=== PATIENT | female | born 1945 | race Caucasian/White ===

== ENCOUNTER 2020-02-13 18:22 | Inpatient (IN) ==
[2020-02-13 18:39] VITALS: BMI 20.7
--- NOTE | 2020-02-13 21:26 | DR.EXTPAIN ---
HPI - Time seen Time seen: 21:19 - PCP Primary Care Physician: FLORESITA - Complaint/Symptoms Chief Complaint Doctor Comments: Patient states she has rheumatoid arthritis and having severe pain in her hands, knees and joints. Family member states she has had a sore throat, cold, cough, with temp 101 today and they brought her to the emergency. States she has been out and they do not know if she has been around anyone with the virus. she denies chest pain, wheezing or dysuria. States she is a patient of Dr. Megn. She denies tobacco, alcohol or drug usage. States the pain is 10 of 10. states she has been taking her medicines without improvement. Chief Complaint:: PT IN ED VIA WHEELCHAIR WITH C/O SEVERE ARTHRITIS PAIN. PT STARTED HURTING X 1 WEEK AGO. STATES SHE HAS UPSET STOMACH, COUGH AND SORE THROAT. NOW ONLY FEVER AND HURTING ALL OVER. - Nurses notes reviewed Nurses Notes Review: Yes - Source History Provided: Patient - Mode of arrival Mode of Arrival: Ambulatory - Timing Onset of Chief Complaint: 02/05/20 - Context History of: Arthritis - Associated signs and symptoms Associated Signs and Symptoms: Pain, Swelling PMH - PMH Past Medical History: Yes Past Medical History: Anemia, Arthritis, Coronary Artery Disease, Dyslipidemia, Hypertension, Liver Disease, [place], Renal Disease Past Surgical History: Yes Surgical History: Carotid Endarterectomy, Cholecystectomy Past Surgical History Comment: BACK - Family History History of Family Medical Conditions: Yes Family Medical History: Diabetes Mellitus, [place], Coronary Artery Disease - Social History Does patient currently use any type of tobacco product: No Have you used tobacco products in the last 12 months: No Type of Tobacco Use: None Does any household member use tobacco: No Alcohol Use: None Do you use any recreational Drugs:: No Lives With: Family Lives Where: Home - Travel Risk Coronavirus risk:travel/contact w/high risk person: No Has patient experienced Coronavirus symptoms: Yes Coronavirus symptoms experienced: Fever, Coughing - infectious screening In the last 2 months have you had wt loss of >10#?: NO Have you had fever, night sweats or hemotysis?: No Have you traveled outside the country in the last 6 months?: No Isolation: Droplet ROS - Review of Systems Constitutional: No Symptoms Reported, Fever, Malaise Eyes: No Symptoms Reported ENTM: No Symptoms Reported Respiratoy: No Symptoms Reported, Non-Productive Cough Cardiovascular: No Symptoms Reported. negative: See HPI, Chest Pain, Edema, Palpitations, Syncope, Cyanosis, Skin Mottling, Other Gastrointestinal/Abdominal: No Symptoms Reported. negative: See HPI, Abdominal Pain, Constipation, Diarrhea, Nausea, Vomiting, Food Intolerance, Other Genitourinary: No Symptoms Reported Neurological: No Symptoms Reported Musculoskeletal: No Symptoms Reported, Arm, Hand, Hip, Knee Integumentary: No Symptoms Reported. negative: See HPI, Change in Color, Change in Hair/Nails, Dryness, Lesions, Lumps, Rash, Itching, Wound, Bruises, Juandice, Other Hematologic/Lymphatic: No Symptoms Reported. negative: See HPI, Anemia, Blood Clots, Easy Bleeding, Easy Bruising, Swollen Glands, Lymphadenopathy, Other Endocrine: No Symptoms Reported Psychiatric: No Symptoms Reported. negative: See HPI, Anxiety, Depression, Hallucinations, Excessive crying, Suicidal, Other PE - General Limitations: No Limitations General Appearance: Alert, In Distress (moderate) - Head Head Exam: Normal Inspection, Atraumatic, Normocephalic - Eyes Eye exam: Normal Appearance, PERRL, EOMI. negative: Scleral Icterus, Conjunctival Injection, Nystagmus, Miosis, Mydrasis, Periorbital Swelling, Periorbital Tenderness, Other - ENT ENT Exam: Normal Exam, Normal Oropharynx, Normal External Ear Exam, Mucous Membranes Moist, TM's Normal Bilaterally - Neck Neck Exam: Normal Inspection, Full ROM, Trachea Midline. negative: Tenderness, Meningismus, Lymphadenopathy, Thyromegaly, Other - Chest Chest Inspection: Normal Inspection, Symmetric Chest Wall Rise. negative: Tenderness, Rash, Abscess, Other - Respiratory Respiratory Exam: Normal Lung Sounds Bilat Respiratory Exam: Bilateral Clear to Auscultation - Cardiovascular Cardiovascular Exam: Regular Rate, Normal Rhythm, Normal Heart Sounds - Abdominal Exam Abdominal Exam: Normal Inspection, Normal Bowel Sounds, Soft. negative: Distention, Tenderness, Guarding, Rebound, Rigidity, Dimnished Bowel Sounds, Hyperactive Bowel Sounds, Hypoactive Bowel Sounds, Organomegaly, Trauma, Incision, Ascites, Mass, Bruit, Pulsatile Mass, Hernia, Other Abdominal Tenderness: negative: RUQ, RLQ, LUQ, LLQ, Epigastrium, Suprapubic, Diffuse, Mild, Moderate, Severe, Other - Extremities Extremities Exam: Normal Inspection, Full ROM, Tenderness (hands with severe deformity fingers, contractures, knee pain), Normal Capillary Refill - Upper Extremities Shoulder Exam: Normal Inspection, Full ROM Arm Exam: Normal Inspection, Full ROM, Tenderness Elbow Exam: Normal Inspection, Full ROM, Tenderness Forearm Exam: Normal Inspection, Full ROM. negative: Tenderness, Swelling, Abrasion, Laceration, Ecchymosis, Deformity, Crepitus, Erythema, Dislocation, Other Hand Exam: Normal Inspection, Tenderness, Deformity Neuromotor Exam: Normal Exam Neurosensory Exam: Normal Exam Hand Tendon Exam: Flexor Digitorium Profundus (Location) (normal) Upper Ext. Vascular Exam: Capillary Refill - Lower Extremities Hip/Pelvis Exam: Normal Inspection, Full ROM Upper Leg Exam: Normal Inspection, Full ROM. negative: Tenderness, Swelling, Abrasion, Laceration, Ecchymosis, Deformity, Crepitus, Dislocation, Erythema, Other Knee Exam: Normal Inspection, Full ROM, Tenderness, Deformity, Crepitus Lower Leg Exam: Normal Inspection, Full ROM Ankle Exam: Normal Inspection, Full ROM. negative: Tenderness, Swelling, Abrasion, Laceration, Ecchymosis, Deformity, Crepitus, Dislocation, Erythema, Tenderness over talofibular lig, Anterior Draw Sign, Other Foot/Toe Exam: Normal Inspection, Full ROM Neurovascular/Tendon Exam: Normal Capillary Refill Gait Exam: Not Tested/Not Observed - Back Back Exam: Normal Inspection, Full ROM. negative: Tenderness, (R) CVA Tenderness, (L) CVA Tenderness, Muscle Spasm, Paraspinal Tenderness, Vertebral Tenderness, Rashes, (R) Sciatic Notch Tenderness, (L) Sciatic Notch Tendern, (R) Straight Leg Raise, (L) Straight Leg Raise, Other - Neurological Neurological Exam: Alert, Oriented X3, CN II-XII Intact, Reflexes Normal. negative: Normal Gait (gait not tested) - Psychiatric Psychiatric Exam: Normal Affect, Normal Mood - Skin Skin Exam: Warm, Dry, Intact, Normal Color Type of Lesion: negative: Rash, Abscess, Laceration, Foreign Body, Bite/Sting, Abrasion, Other Distribution: negative: Generalized, Involves Palms/Soles, Head, Face, Neck, Thorax, Chest, Back, Abdomen, Genitals, LUE, LLE, RUE, RLE, Other Description: negative: Size, Tenderness, Erythematous, Swelling, Macular, Papular, Vesicular, Blisters, Cofluent, Bullous, Petechial, Purpuric, Urticarial, Crusting, Discharge, Fluctuant, Indurated, Other - Vital Signs Vitals: Temperature 101.7 F Pulse Rate 73 Respiratory Rate 20 Blood Pressure [Right Arm] 136/64 Blood Pressure 106/55 O2 Sat by Pulse Oximetry 90 Course - Reevaluation 1st: Improved - Consultation Called: :31 Call Returned: 01:31 (Dr. Singh will admit) - Education/Counseling Education/Counseling: Patient, Family Educated On: Treatment, Diagnosis, Needs for Follow Up ROR - Labs Reviewed Laboratory Results Reviewed?: Yes (All labs and x-ray results reviewed and discussed with patient) Result Diagrams: 02/13/20 21:48 02/13/20 21:48 - XRAY XRAY Interpreted by: Radiologist (CXR: Low lung volume with minimal bibasilar atelectasis vs infiltrates) - Labs Reviewed Laboratory: WBC 12.2 X10^3/uL (3.6-10.0) H 02/13/20 21:48 RBC 3.31 X10^6/uL (3.5-5.4) L 02/13/20 21:48 Hgb 7.6 g/dL (12.0-16.0) L 02/13/20 21:48 Hct 25.3 % (36.0-47.0) L 02/13/20 21:48 MCV 76.3 fL (80.0-100.0) L 02/13/20 21:48 MCH 23.1 pg (27.0-34.0) L 02/13/20 21:48 MCHC 30.2 g/dL (33.0-35.0) L 02/13/20 21:48 RDW 18.5 % (11.6-16.5) H 02/13/20 21:48 Plt Count 284 X10^3/uL (150.0-450.0) 02/13/20 21:48 Plt Count Comment Adequate (ADEQUATE) 02/13/20 21:48 MPV 8.0 fL (7.4-11.0) 02/13/20 21:48 Neut % (Auto) 89.5 % (42.0-75.0) H 02/13/20 21:48 Lymph % (Auto) 3.3 % (21.0-51.0) L 02/13/20 21:48 [place] % (Auto) 6.9 % (0.0-13.0) 02/13/20 21:48 Eos % (Auto) 0.2 % (0.9-2.9) L 02/13/20 21:48 Baso % (Auto) 0.1 % (0.2-1.0) L 02/13/20 21:48 Neut # (Auto) 10.9 x10^3/uL (2.2-4.8) H 02/13/20 21:48 Lymph # (Auto) 0.4 X10^3/uL (1.3-2.9) L 02/13/20 21:48 [place] # (Auto) 0.8 x10^3/uL (0.3-0.8) 02/13/20 21:48 Eos # (Auto) 0.0 x10^3/uL (0.0-0.2) 02/13/20 21:48 Baso # (Auto) 0.0 X10^3/uL (0.0-0.1) 02/13/20 21:48 Absolute Nucleated RBC 0.0 /100WBC 02/13/20 21:48 Plt Morphology Comment Normal (NORMAL) 02/13/20 21:48 RBC Morphology Abnormal (NORMAL) A 02/13/20 21:48 Hypochromasia 1+ A 02/13/20 21:48 Sodium 137 mmol/L (136-145) 02/13/20 21:48 Corrected Sodium TNP 02/13/20 21:48 Potassium 3.7 mmol/L (3.5-5.1) 02/13/20 21:48 Chloride 103 mmol/L (98-107) 02/13/20 21:48 Carbon Dioxide 21.3 mmol/L (21-32) 02/13/20 21:48 BUN 31 mg/dL (7-18) H 02/13/20 21:48 Creatinine 2.15 mg/dL (0.55-1.02) H 02/13/20 21:48 Est GFR (MDRD) Af Amer 29 (>60) L 02/13/20 21:48 Est GFR (MDRD) Non-Af 24 (>60) L 02/13/20 21:48 Glucose 88 mg/dL (65-99) 02/13/20 21:48 Calcium 9.4 mg/dL (8.5-10.1) 02/13/20 21:48 Corrected Calcium 10.3 mg/dL (8.5-10.1) H 02/13/20 21:48 Total Bilirubin 0.30 mg/dL (0.2-1.0) 02/13/20 21:48 AST 30 Units/L (15-37) 02/13/20 21:48 ALT 18 Units/L (12-78) 02/13/20 21:48 Alkaline Phosphatase 130 Units/L (46-116) H 02/13/20 21:48 Total Protein 6.7 g/dL (6.4-8.2) 02/13/20 21:48 Albumin 2.9 g/dL (3.4-5.0) L 02/13/20 21:48 Globulin 3.8 g/dL (2.5-4.5) 02/13/20 21:48 Albumin/Globulin Ratio 0.8 Ratio (1.1-2.1) L 02/13/20 21:48 SARS-CoV-2 (PCR) Negative (NEGATIVE) 02/14/20 00:29 Opioid - Opioid Risk Tool Age (Deng box if 16-45): No History of Preadolescent Sexual Abuse: No Total: 0 Total Score Risk Category: Low Risk - Diagnosis Discharge Problem: Pulmonary infiltrate in left lung on CXR, Severe anemia, Rheumatoid arthritis flare, Microcytic anemia Chronic kidney disease (CKD) Qualifiers: Chronic kidney disease stage: stage 3 (moderate) Qualified Code(s): N18.3 - Chronic kidney disease, stage 3 (moderate) - Discharge Plan Disposition: ADMITTED INPATIENT Condition: Stable - Follow ups/Referrals Follow ups/Referrals: SANTIAGO CANAS [Primary Care Provider] - 3 days - Instructions
[2020-02-13] MEDS ORDERED: SOLU-Medrol 125 MG VIAL IVP ONE (21:29)
[2020-02-13] MEDS ORDERED: ZOFRAN INJ 4 MG VIAL IVP ONE (21:29)
[2020-02-13] MEDS ORDERED: DEMEROL INJ IVP ONE (21:29)
[2020-02-13] MEDS ORDERED: NS 1000 ML 1,000 ML ONE (21:39)
[2020-02-13] MEDS ORDERED: DEMEROL INJ ONE (21:41)
[2020-02-13] MEDS ORDERED: SOLU-Medrol 125 MG VIAL ONE (21:41)
[2020-02-13] MEDS ORDERED: ZOFRAN INJ 4 MG VIAL ONE (21:41)
[2020-02-13] MEDS: NS 1000 ML 1,000 ML IV SCH (21:57)
[2020-02-13 22:02] LABS: BASOPHILS % (AUTO) 0.1 % (0.2-1.0); EOSINOPHILS % (AUTO) 0.2 % (0.9-2.9); HEMATOCRIT 25.3 % (36.0-47.0); HEMOGLOBIN 7.6 g/dL (12.0-16.0); LYMPHOCYTES # (AUTO) 0.4 X10^3/uL (1.3-2.9); LYMPHOCYTES % (AUTO) 3.3 % (21.0-51.0); MEAN CORPUSCULAR HEMOGLOBIN 23.1 pg (27.0-34.0); MEAN CORPUSCULAR HGB CONC 30.2 g/dL (33.0-35.0); MEAN CORPUSCULAR VOLUME 76.3 fL (80.0-100.0); MONOCYTES # (AUTO) 0.8 x10^3/uL (0.3-0.8); MONOCYTES % (AUTO) 6.9 % (0.0-13.0); NEUTROPHILS # (AUTO) 10.9 x10^3/uL (2.2-4.8); NEUTROPHILS % (AUTO) 89.5 % (42.0-75.0); PLATELET COUNT 284 X10^3/uL (150.0-450.0); RED BLOOD COUNT 3.31 X10^6/uL (3.5-5.4); RED CELL DISTRIBUTION WIDTH 18.5 % (11.6-16.5); WHITE BLOOD COUNT 12.2 X10^3/uL (3.6-10.0)
[2020-02-13 22:18] LABS: ALANINE AMINOTRANSFERASE 18 Units/L (12-78); ALBUMIN 2.9 g/dL (3.4-5.0); ALKALINE PHOSPHATASE 130 Units/L (46-116); ASPARTATE AMINO TRANSFERASE 30 Units/L (15-37); BLOOD UREA NITROGEN 31 mg/dL (7-18); CALCIUM 9.4 mg/dL (8.5-10.1); CARBON DIOXIDE 21.3 mmol/L (21-32); CHLORIDE 103 mmol/L (98-107); COR CA(FOR HYPOALB) 10.3 mg/dL (8.5-10.1); CREATININE 2.15 mg/dL (0.55-1.02); SODIUM 137 mmol/L (136-145); TOTAL PROTEIN 6.7 g/dL (6.4-8.2); eGFR NON BLACK RACES 24 (>60)
--- NOTE | 2020-02-13 22:25 | RAD ---
HISTORYPT IN ED VIA WHEELCHAIR WITH C/O SEVERE ARTHRITIS PAIN. PT STARTED HURTING X 1 WEEK AGO. STATES SHE HAS UPSET STOMACH, COUGH AND SORE THROAT. NOW ONLY FEVER AND HURTING ALL OVER.STUDYCHEST, 1 [id number]/2020FINDINGSThe trachea is midline. The cardiac silhouette is upper limits or normal.. Low lung volume with mild bibasilar atelectasis/infiltrates.. The bony thorax is grossly unremarkable. Surgical clips of the left lower neck..IMPRESSIONLow lung volume with minimal bibasilar atelectasis versus infiltrates.Electronically signed by: Glenis Forbes (Feb 13, 2020 22:24:29)
[2020-02-13 22:51] LABS: HYPOCHROMASIA 1+; PLATELET MORPHOLOGY COMMENT NORMAL (NORMAL)
[2020-02-13] MEDS ORDERED: TORADOL 30 MG VIAL IVP ONE (23:50)
[2020-02-13] MEDS ORDERED: TORADOL 30 MG VIAL ONE (23:52)
[2020-02-14] MEDS ORDERED: ROCEPHIN VIAL 1 GRAM 1 G in NS 100 ML IV + SPIKE MINIBAG* 100 ML IV ONE ×2
[2020-02-14] MEDS ORDERED: ROCEPHIN VIAL 1 GRAM ONE ×2 (00:26→19:24)
[2020-02-14] MEDS ORDERED: NS 100 ML IV + SPIKE MINIBAG* 100 ML IV ONE ×2 (00:26→19:24)
[2020-02-14] MEDS ORDERED: TUSSIONEX PENNKINETIC SUSP PO PRN (02:11)
[2020-02-14] MEDS ORDERED: NS 1/2 1000 ML IV 1,000 ML IV ONE (02:53)
[2020-02-14] MEDS ORDERED: NS 1/2 1000 ML IV 1,000 ML IV SCH (03:00)
[2020-02-14] MEDS ORDERED: MORPHINE SULFATE INJ 2 MG INJ IVP ONE (03:10)
[2020-02-14] MEDS ORDERED: MORPHINE SULFATE INJ 2 MG INJ ONE (03:15)
[2020-02-14 04:24] LABS: BASOPHILS % (AUTO) 0.1 % (0.2-1.0); HEMATOCRIT 20.4 % (36.0-47.0); LYMPHOCYTES # (AUTO) 0.4 X10^3/uL (1.3-2.9); LYMPHOCYTES % (AUTO) 2.6 % (21.0-51.0); MEAN CORPUSCULAR HEMOGLOBIN 22.9 pg (27.0-34.0); MEAN CORPUSCULAR HGB CONC 30.3 g/dL (33.0-35.0); MEAN CORPUSCULAR VOLUME 75.7 fL (80.0-100.0); MEAN PLATELET VOLUME 8.1 fL (7.4-11.0); MONOCYTES # (AUTO) 0.8 x10^3/uL (0.3-0.8); MONOCYTES % (AUTO) 5.5 % (0.0-13.0); NEUTROPHILS # (AUTO) 12.6 x10^3/uL (2.2-4.8); NEUTROPHILS % (AUTO) 91.8 % (42.0-75.0); PLATELET COUNT 202 X10^3/uL (150.0-450.0); RED BLOOD COUNT 2.69 X10^6/uL (3.5-5.4); RED CELL DISTRIBUTION WIDTH 18.3 % (11.6-16.5); WHITE BLOOD COUNT 13.8 X10^3/uL (3.6-10.0)
[2020-02-14 04:33] LABS: ALANINE AMINOTRANSFERASE 16 Units/L (12-78); ALBUMIN 2.4 g/dL (3.4-5.0); ALKALINE PHOSPHATASE 109 Units/L (46-116); ASPARTATE AMINO TRANSFERASE 26 Units/L (15-37); BLOOD UREA NITROGEN 33 mg/dL (7-18); CALCIUM 8.5 mg/dL (8.5-10.1); CARBON DIOXIDE 19.5 mmol/L (21-32); CHLORIDE 104 mmol/L (98-107); COR CA(FOR HYPOALB) 9.8 mg/dL (8.5-10.1); CREATININE 1.94 mg/dL (0.55-1.02); HEMOGLOBIN 6.2 g/dL (12.0-16.0); SODIUM 136 mmol/L (136-145); TOTAL PROTEIN 5.8 g/dL (6.4-8.2); eGFR NON BLACK RACES 27 (>60)
[2020-02-14 05:09] LABS: HYPOCHROMASIA 1+; PLATELET MORPHOLOGY COMMENT NORMAL (NORMAL)
[2020-02-14] MEDS ORDERED: TYLENOL 325 MG TAB PO ONE ×2 (06:50→06:51)
[2020-02-14] MEDS ORDERED: ROBITUSSIN DM ONE (07:17)
[2020-02-14] MEDS ORDERED: NS 1000 ML 1,000 ML ONE (07:17)
[2020-02-14] MEDS: ROBITUSSIN DM PO SCH ×5 (08:34→21:17)
[2020-02-14] MEDS ORDERED: ZITHROMAX TAB 250 MG PO ONE (09:22)
[2020-02-14] MEDS: SOLU-Medrol 125 MG VIAL IVP SCH ×2 (10:40→21:17)
[2020-02-14] MEDS: VITAMIN C PO SCH (10:40)
--- NOTE | 2020-02-14 12:50 | DR.H&P ---
H&P History & Physical for Day of: H&P Date: 02/14/20 Chief Complaint Chief Complaint: cough, fever and URI symptoms Allergies Allergies Allergy/AdvReac Type Severity Reaction Status Date / Time Tetanus Vaccines and Toxoid Allergy Verified 12/04/19 20:57 History of Present Illness History of Present Illness: Ms. Carroll is a 74y/o female with a PMH of RA, CAD s/p PCI, HTN and anemia presented with worsening cough, fever and chills. She has been having URI sx for the past week. Denies sick contact or known exposure. She also reports worsening joint pain for the past couple days. ED work-up - CXR: mild bibasilar atelectasis - Rapid COVID test was negative - Labs: Hgb 7.6 K: 4.3 BUN/Cr: 33/2.15 She was started on Rocephin and Azithromycin. Patient's hgb this AM was 6.2. She reports requiring 2 units of blood back in October. Denies active bleeding. Patient has been afebrile, reports feeling better. She is on room air. Plan: Continue IV antibiotics, will transfuse 2 units PRBCs, add solumedrol and Vit C. Get sputum culture. Due to patient's clinical symptoms, will check for COVID again with PCR. Resume home medications. Check anemia panel and FOBT. Past Medical History Past Medical History: Anemia, Arthritis, Coronary Artery Disease, Dyslipidemia, Hypertension, Liver Disease, [place] and Renal Disease Past Surgical History Surgical History: Carotid Endarterectomy, Cholecystectomy, Ortho Surgery and Other Family History Family Medical History: Diabetes Mellitus, [place] and Coronary Artery Disease Social History Does patient currently use any type of tobacco product: No Have you used tobacco products in the last 12 months: No Type of Tobacco Use: None Does any household member use tobacco: No Alcohol Use: None Drug Use: None Medications Home Medications: Tetanus Vaccines and Toxoid Allergy (Verified 12/04/19 20:57) CONTINUE taking the following medications amlodipine 5 mg PO DAILY 02/13/20 [History] amoxicillin-pot clavulanate 1 tab PO BID 02/13/20 [History] aspirin [Aspir-81] 81 mg PO DAILY 02/13/20 [History] atorvastatin 20 mg PO DAILY 02/13/20 [History] calcium carbonate-vitamin D3 [Calcium 600 + D(3)] 1 cap PO DAILY 02/13/20 [History] cholecalciferol (vitamin D3) [Vitamin D3] 125 mcg PO DAILY 02/13/20 [History] clopidogrel 75 mg PO DAILY 02/13/20 [History] furosemide 20 mg PO DAILY 02/13/20 [History] gabapentin 100 mg PO QID 02/13/20 [History] hydrocodone-acetaminophen 1 tab PO BID PRN 02/13/20 [History] levothyroxine 88 mcg PO DAILY 02/13/20 [History] lisinopril 40 mg PO BID 02/13/20 [History] metoprolol tartrate 25 mg PO BID 02/13/20 [History] ropinirole 0.5 mg PO HS 02/13/20 [History] spironolactone 50 mg PO DAILY 02/13/20 [History] suvorexant [Belsomra] 15 mg PO DAILY 02/13/20 [History] vitamin E 1,000 unit PO DAILY 02/13/20 [History] Labs Result Diagrams: 02/14/20 04:10 02/14/20 04:10 Labs: 02/14/20 02:55 Sputum - Expectorated Sputum - Final Laboratory WBC 13.8 X10^3/uL (3.6-10.0) H 02/14/20 04:10 RBC 2.69 X10^6/uL (3.5-5.4) L 02/14/20 04:10 Hgb 6.2 g/dL (12.0-16.0) L* 02/14/20 04:10 Hct 20.4 % (36.0-47.0) L 02/14/20 04:10 MCV 75.7 fL (80.0-100.0) L 02/14/20 04:10 MCH 22.9 pg (27.0-34.0) L 02/14/20 04:10 MCHC 30.3 g/dL (33.0-35.0) L 02/14/20 04:10 RDW 18.3 % (11.6-16.5) H 02/14/20 04:10 Plt Count 202 X10^3/uL (150.0-450.0) 02/14/20 04:10 Plt Count Comment Adequate (ADEQUATE) 02/14/20 04:10 MPV 8.1 fL (7.4-11.0) 02/14/20 04:10 Neut % (Auto) 91.8 % (42.0-75.0) H 02/14/20 04:10 Lymph % (Auto) 2.6 % (21.0-51.0) L 02/14/20 04:10 [place] % (Auto) 5.5 % (0.0-13.0) 02/14/20 04:10 Eos % (Auto) 0.0 % (0.9-2.9) L 02/14/20 04:10 Baso % (Auto) 0.1 % (0.2-1.0) L 02/14/20 04:10 Neut # (Auto) 12.6 x10^3/uL (2.2-4.8) H 02/14/20 04:10 Lymph # (Auto) 0.4 X10^3/uL (1.3-2.9) L 02/14/20 04:10 [place] # (Auto) 0.8 x10^3/uL (0.3-0.8) 02/14/20 04:10 Eos # (Auto) 0.0 x10^3/uL (0.0-0.2) 02/14/20 04:10 Baso # (Auto) 0.0 X10^3/uL (0.0-0.1) 02/14/20 04:10 Absolute Nucleated RBC 0.0 /100WBC 02/14/20 04:10 Total Counted 100 02/14/20 04:10 Neutrophils % (Manual) 97 % (39-76) H 02/14/20 04:10 Lymphocytes % (Manual) Not Reportable 02/14/20 04:10 Monocytes % (Manual) 3 % (4-9) L 02/14/20 04:10 Plt Morphology Comment Normal (NORMAL) 02/14/20 04:10 RBC Morphology Abnormal (NORMAL) A 02/14/20 04:10 Hypochromasia 1+ A 02/14/20 04:10 Sodium 136 mmol/L (136-145) 02/14/20 04:10 Corrected Sodium TNP 02/14/20 04:10 Potassium 4.3 mmol/L (3.5-5.1) 02/14/20 04:10 Chloride 104 mmol/L (98-107) 02/14/20 04:10 Carbon Dioxide 19.5 mmol/L (21-32) L 02/14/20 04:10 BUN 33 mg/dL (7-18) H 02/14/20 04:10 Creatinine 1.94 mg/dL (0.55-1.02) H 02/14/20 04:10 Est GFR (MDRD) Af Amer 32 (>60) L 02/14/20 04:10 Est GFR (MDRD) Non-Af 27 (>60) L 02/14/20 04:10 Glucose 101 mg/dL (65-99) H 02/14/20 04:10 Calcium 8.5 mg/dL (8.5-10.1) 02/14/20 04:10 Corrected Calcium 9.8 mg/dL (8.5-10.1) 02/14/20 04:10 Total Bilirubin 0.10 mg/dL (0.2-1.0) L 02/14/20 04:10 AST 26 Units/L (15-37) 02/14/20 04:10 ALT 16 Units/L (12-78) 02/14/20 04:10 Alkaline Phosphatase 109 Units/L (46-116) 02/14/20 04:10 Total Protein 5.8 g/dL (6.4-8.2) L 02/14/20 04:10 Albumin 2.4 g/dL (3.4-5.0) L 02/14/20 04:10 Globulin 3.4 g/dL (2.5-4.5) 02/14/20 04:10 Albumin/Globulin Ratio 0.7 Ratio (1.1-2.1) L 02/14/20 04:10 SARS-CoV-2 (PCR) Negative (NEGATIVE) 02/14/20 00:29 Blood Type O POSITIVE 02/14/20 05:42 Antibody Screen Negative 02/14/20 05:42 Crossmatch See Detail 02/14/20 05:42 Review of Systems Constitutional: Fever, Chills, Weakness and Malaise Eyes: No Symptoms Reported ENT: No Symptoms Reported Respiratory: Cough and Sputum Cardiovascular: No Symptoms Reported Gastrointestinal: No Symptoms Reported Genitourinary: No Symptoms Reported Musculoskeletal: Shoulder Pain, Arm Pain, Back Pain, Hand Pain and Leg Pain Skin: No Symptoms Reported Neurological: No Symptoms Reported Physical Exam Vital Signs: Temperature 97.1 F Pulse Rate [Left Radial] 87 Pulse Rate 73 Respiratory Rate 22 Blood Pressure [Right Arm] 136/60 Blood Pressure 106/55 O2 Sat by Pulse Oximetry 98 Oriented: Normal Eyes: Normal Ear: Normal Nose: Normal Respiratory: Diminished Throughout, RLL Rhonchi and LLL Rhonchi Cardiovascular: Normal Auscultation: Bowel Sounds: Normal Palpation: Normal Tenderness: Normal Skin: Decreased [place] Musculoskeletal: Normal Psychiatric: Normal Mood Description: Calm Affect: Normal Speech Pattern: Clear and Appropriate Assessment/Plan (1) Suspected COVID-19 virus infection: Status: Acute (2) Acute on chronic renal failure: Qualifiers: Acute renal failure type: unspecified Chronic kidney disease stage: unspecified stage Qualified Code(s): N17.9 - Acute kidney failure, unspecified; N18.9 - Chronic kidney disease, unspecified Status: Acute (3) Severe anemia: Status: Acute (4) CAD (coronary artery disease): Qualifiers: Coronary Disease-Associated Artery/Lesion type: unspecified vessel or lesion type [place] vs. transplanted heart: [place] heart Associated angina: with unspecified angina Qualified Code(s): I25.119 - Atherosclerotic heart disease of [place] coronary artery with unspecified angina pectoris Status: Acute (5) HTN (hypertension): Qualifiers: Hypertension type: essential hypertension Qualified Code(s): I10 - Essential (primary) hypertension Status: Acute (6) Rheumatoid arthritis: Qualifiers: Rheumatoid arthritis location: multiple sites Rheumatoid factor presence: unspecified presence Qualified Code(s): M06.9 - Rheumatoid arthritis, unspecified Status: Acute (7) Chronic kidney disease (CKD): Qualifiers: Chronic kidney disease stage: stage 3 (moderate) Qualified Code(s): N18.3 - Chronic kidney disease, stage 3 (moderate) Status: Acute Review H&P Reviewed: Yes Patient was examined?: Yes
[2020-02-14] MEDS: ASPIRIN EC 81 MG PO SCH (14:41)
[2020-02-14] MEDS: NEURONTIN CAP 100 MG PO SCH ×3 (14:41→21:16)
[2020-02-14] MEDS: PLAVIX PO SCH (14:42)
[2020-02-14] MEDS: NORVASC TAB 5 MG PO SCH (14:42)
[2020-02-14] MEDS: LIPITOR TAB 20 MG PO SCH (14:42)
[2020-02-14] MEDS: PROTONIX TAB 40 MG PO SCH (14:43)
[2020-02-14] MEDS: NS 1000 ML 1,000 ML IV SCH (16:13)
[2020-02-14] MEDS ORDERED: NS 250 ML IV 250 ML IV ONE (16:58)
[2020-02-14] MEDS ORDERED: LOPRESSOR TAB 25 MG ONE (19:23)
[2020-02-14] MEDS: SUVOREXANT 15 MG PO SCH (20:23)
[2020-02-14] MEDS ORDERED: ROCEPHIN VIAL 1 GRAM 1 G in NS 100 ML IV + SPIKE MINIBAG* 100 ML IV SCH (21:00)
[2020-02-14] MEDS: REQUIP PO SCH (21:16)
[2020-02-14] MEDS: LOPRESSOR TAB 25 MG PO SCH (21:16)
[2020-02-14 21:33] LABS: HEMATOCRIT 30.4 % (36.0-47.0); HEMOGLOBIN 9.6 g/dL (12.0-16.0)
[2020-02-14 22:54] LABS: BILIRUBIN,URINE NEGATIVE (NEGATIVE); BLOOD/HEMOGLOBIN,URINE 2+ (NEGATIVE); GLUCOSE, URINE NEGATIVE (NEGATIVE); KETONES,URINE NEGATIVE (NEGATIVE); LEUKOCYTE ESTERASE ,URINE 3+ (NEGATIVE); NITRITES,URINE NEGATIVE (NEGATIVE); PROTEIN,URINE 2+ (NEGATIVE); UROBILINOGEN,URINE NORMAL (NORMAL)
[2020-02-14 23:04] LABS: APPEARANCE,URINE CLEAR (CLEAR); COLOR,URINE STRAW (YELLOW)
[2020-02-14 23:05] LABS: BACTERIA,URINE TRACE /HPF (NEGATIVE); RBC,URINE 0-2 /HPF (0-3); SQUAMOUS EPITHELIAL CELL,UR FEW /HPF (NEGATIVE)
[2020-02-15] MEDS: NS 1000 ML 1,000 ML IV SCH ×3 (00:28→17:21)
[2020-02-15] MEDS: NORCO 7.5/325 MG TAB PO PRN ×2 (02:55→22:08)
[2020-02-15] MEDS: PROVENTIL NEB TX 0.083% 2.5MG/ 3ML NEB PRN ×2 (04:09→21:00)
[2020-02-15 06:36] LABS: BASOPHILS % (AUTO) 0.1 % (0.2-1.0); HEMATOCRIT 31.9 % (36.0-47.0); HEMOGLOBIN 10.1 g/dL (12.0-16.0); LYMPHOCYTES # (AUTO) 0.4 X10^3/uL (1.3-2.9); LYMPHOCYTES % (AUTO) 2.3 % (21.0-51.0); MEAN CORPUSCULAR HEMOGLOBIN 24.4 pg (27.0-34.0); MEAN CORPUSCULAR HGB CONC 31.9 g/dL (33.0-35.0); MEAN CORPUSCULAR VOLUME 76.5 fL (80.0-100.0); MONOCYTES # (AUTO) 0.5 x10^3/uL (0.3-0.8); MONOCYTES % (AUTO) 2.7 % (0.0-13.0); NEUTROPHILS # (AUTO) 18.4 x10^3/uL (2.2-4.8); NEUTROPHILS % (AUTO) 94.9 % (42.0-75.0); PLATELET COUNT 216 X10^3/uL (150.0-450.0); RED BLOOD COUNT 4.16 X10^6/uL (3.5-5.4); RED CELL DISTRIBUTION WIDTH 17.9 % (11.6-16.5); WHITE BLOOD COUNT 19.3 X10^3/uL (3.6-10.0)
[2020-02-15 06:45] LABS: CALCIUM 8.7 mg/dL (8.5-10.1); CARBON DIOXIDE 19.8 mmol/L (21-32); CREATININE 1.36 mg/dL (0.55-1.02)
[2020-02-15 07:16] LABS: BAND NEUTROPHILS % 4 % (0-10); PLATELET MORPHOLOGY COMMENT NORMAL (NORMAL)
[2020-02-15] MEDS: ASPIRIN EC 81 MG PO SCH (09:22)
[2020-02-15] MEDS: LIPITOR TAB 20 MG PO SCH (09:22)
[2020-02-15] MEDS: LOPRESSOR TAB 25 MG PO SCH ×2 (09:23→21:31)
[2020-02-15] MEDS: NEURONTIN CAP 100 MG PO SCH ×4 (09:24→21:31)
[2020-02-15] MEDS: NORVASC TAB 5 MG PO SCH (09:24)
[2020-02-15] MEDS: OSCAL+D or CALTRATE+D PO SCH (09:25)
[2020-02-15] MEDS: PLAVIX PO SCH (09:25)
[2020-02-15] MEDS: SOLU-Medrol 125 MG VIAL IVP SCH ×2 (09:26→21:32)
[2020-02-15] MEDS: ROBITUSSIN DM PO SCH ×4 (09:26→21:32)
[2020-02-15] MEDS: SYNTHROID 88 mcg TAB PO SCH (09:26)
[2020-02-15] MEDS: VITAMIN C PO SCH (09:27)
[2020-02-15] MEDS: ZITHROMAX TAB 250 MG PO SCH (09:28)
[2020-02-15] MEDS: VITAMIN D3 125 mcg (5,000 UNITS) PO SCH (09:28)
[2020-02-15] MEDS: ALDACTONE TAB 25 MG PO SCH (09:29)
[2020-02-15] MEDS: ZOSYN VIAL 3.375 GRAMS 3.375 G in NS 100 ML IV + SPIKE MINIBAG* 100 ML IV SCH ×3 (09:31→21:33)
--- NOTE | 2020-02-15 10:38 | PCM.PROG ---
Progress Note Progress Note for Day of Date of Exam: 02/15/20 Subjective Subjective: Patient seen at bedside, no overnight events. She states she feels a lot better today. She feels like her weakness has improved. She has been cough up sputum. She states she had some chest tightness earlier which resolved after a breathing treatment. She denies fever or chills. Denies SOB. She is tolerating diet. Labs: Hgb 10.1 s/p 2 units PRBCs, WBC: 19.3 Plt: 216 BUN/Cr: 33/1.36 Iron 5 Ferritin 30 Sputum Cx: gram neg rods, yeast Covid PCR pending Plan: will switch Rocephin to Zosyn, add duonebs prn, continue solumedrol and Azithromycin. Start iron supplements. Monitor AM labs. Past Medical Family Social History Past Med/Fam/Surg Hx: No changes since H&P Allergies: Allergies Tetanus Vaccines and Toxoid Allergy (Verified 12/04/19 20:57) Review of Systems ROS: No change since H&P Vital Signs and I&O's Vital Signs: Temperature 98.4 F Pulse Rate [Left Radial] 89 Pulse Rate 86 Respiratory Rate 17 Blood Pressure [Right Arm] 168/74 Blood Pressure 106/55 O2 Sat by Pulse Oximetry 90 Intake and Output: Intake & Output 02/12/20 02/13/20 02/14/20 02/15/20 23:59 23:59 23:59 23:59 Intake Total 2850 / 2850 100 / 100 Output Total 500 / 500 Balance 2350 / 2350 100 / 100 Physical Exam Oriented: Normal Eyes: Normal Ear: Normal Nose: Normal Throat: Normal Respiratory: Normal Cardiovascular: Normal Auscultation: Bowel Sounds: Normal Tenderness: Normal Skin: Decreased Turgur Musculoskeletal: Normal Psychiatric: Normal Mood Description: Calm Affect: Normal Speech Pattern: Clear and Appropriate Laboratory and Diagnostics Result Diagrams: 02/15/20 05:10 02/15/20 05:10 Labs: 02/13/20 21:48 Blood Blood Culture - Preliminary 02/13/20 21:50 Blood Blood Culture - Preliminary 02/14/20 02:55 Sputum - Expectorated Sputum Sputum Culture - Preliminary 02/14/20 02:55 Sputum - Expectorated Sputum - Final Laboratory WBC 19.3 X10^3/uL (3.6-10.0) H 02/15/20 05:10 RBC 4.16 X10^6/uL (3.5-5.4) 02/15/20 05:10 Hgb 10.1 g/dL (12.0-16.0) L 02/15/20 05:10 Hct 31.9 % (36.0-47.0) L 02/15/20 05:10 MCV 76.5 fL (80.0-100.0) L 02/15/20 05:10 MCH 24.4 pg (27.0-34.0) L 02/15/20 05:10 MCHC 31.9 g/dL (33.0-35.0) L 02/15/20 05:10 RDW 17.9 % (11.6-16.5) H 02/15/20 05:10 Plt Count 216 X10^3/uL (150.0-450.0) 02/15/20 05:10 Plt Count Comment Adequate (ADEQUATE) 02/15/20 05:10 MPV 8.0 fL (7.4-11.0) 02/15/20 05:10 Neut % (Auto) 94.9 % (42.0-75.0) H 02/15/20 05:10 Lymph % (Auto) 2.3 % (21.0-51.0) L 02/15/20 05:10 [place] % (Auto) 2.7 % (0.0-13.0) 02/15/20 05:10 Eos % (Auto) 0.0 % (0.9-2.9) L 02/15/20 05:10 Baso % (Auto) 0.1 % (0.2-1.0) L 02/15/20 05:10 Neut # (Auto) 18.4 x10^3/uL (2.2-4.8) H 02/15/20 05:10 Lymph # (Auto) 0.4 X10^3/uL (1.3-2.9) L 02/15/20 05:10 [place] # (Auto) 0.5 x10^3/uL (0.3-0.8) 02/15/20 05:10 Eos # (Auto) 0.0 x10^3/uL (0.0-0.2) 02/15/20 05:10 Baso # (Auto) 0.0 X10^3/uL (0.0-0.1) 02/15/20 05:10 Absolute Nucleated RBC 0.0 /100WBC 02/15/20 05:10 Total Counted 100 02/15/20 05:10 Neutrophils % (Manual) 91 % (39-76) H 02/15/20 05:10 Band Neutrophils % 4 % (0-10) 02/15/20 05:10 Lymphocytes % (Manual) 3 % (13-43) L 02/15/20 05:10 Monocytes % (Manual) 2 % (4-9) L 02/15/20 05:10 Plt Morphology Comment Normal (NORMAL) 02/15/20 05:10 RBC Morphology Normal (NORMAL) 02/15/20 05:10 Hypochromasia 1+ A 02/14/20 04:10 Sodium 139 mmol/L (136-145) 02/15/20 05:10 Corrected Sodium 140 mmol/L (136-145) 02/15/20 05:10 Potassium 4.3 mmol/L (3.5-5.1) 02/15/20 05:10 Chloride 106 mmol/L (98-107) 02/15/20 05:10 Carbon Dioxide 19.8 mmol/L (21-32) L 02/15/20 05:10 BUN 33 mg/dL (7-18) H 02/15/20 05:10 Creatinine 1.36 mg/dL (0.55-1.02) H 02/15/20 05:10 Est GFR (MDRD) Af Amer 49 (>60) L 02/15/20 05:10 Est GFR (MDRD) Non-Af 40 (>60) L 02/15/20 05:10 Glucose 144 mg/dL (65-99) H 02/15/20 05:10 Calcium 8.7 mg/dL (8.5-10.1) 02/15/20 05:10 Corrected Calcium 9.8 mg/dL (8.5-10.1) 02/14/20 04:10 Iron 5 ug/dL (50-175) L 02/14/20 04:10 Transferrin 211 mg/dL (202-364) 02/14/20 04:10 Ferritin 30 ng/mL (8-252) 02/14/20 04:10 Total Bilirubin 0.10 mg/dL (0.2-1.0) L 02/14/20 04:10 AST 26 Units/L (15-37) 02/14/20 04:10 ALT 16 Units/L (12-78) 02/14/20 04:10 Alkaline Phosphatase 109 Units/L (46-116) 02/14/20 04:10 Total Protein 5.8 g/dL (6.4-8.2) L 02/14/20 04:10 Albumin 2.4 g/dL (3.4-5.0) L 02/14/20 04:10 Globulin 3.4 g/dL (2.5-4.5) 02/14/20 04:10 Albumin/Globulin Ratio 0.7 Ratio (1.1-2.1) L 02/14/20 04:10 Vitamin B12 617 pg/mL (193-986) 02/14/20 04:10 Folate 13.9 ng/mL (>8.6) 02/14/20 04:10 Specimen Type Clean catch urine 02/14/20 22:47 Urine Color Straw (YELLOW) 02/14/20 22:47 Urine Appearance Clear (CLEAR) 02/14/20 22:47 Urine pH 5.0 (5.0 - 8.0) 02/14/20 22:47 Ur Specific [place] 1.010 (1.000-1.030) 02/14/20 22:47 Urine Protein 2+ (NEGATIVE) 02/14/20 22:47 Urine Glucose (UA) Negative (NEGATIVE) 02/14/20 22:47 Urine Ketones Negative (NEGATIVE) 02/14/20 22:47 Urine Occult Blood 2+ (NEGATIVE) 02/14/20 22:47 Urine Nitrite Negative (NEGATIVE) 02/14/20 22:47 Urine Bilirubin Negative (NEGATIVE) 02/14/20 22:47 Urine Urobilinogen Normal (NORMAL) 02/14/20 22:47 Ur Leukocyte Esterase 3+ (NEGATIVE) 02/14/20 22:47 Urine RBC 0-2 /HPF (0-3) 02/14/20 22:47 Urine WBC 3-5 /HPF (0-5) 02/14/20 22:47 Ur Squamous Epith Cells Few /HPF (NEGATIVE) 02/14/20 22:47 Urine Bacteria Trace /HPF (NEGATIVE) 02/14/20 22:47 Ur Culture Indicated? No/not indicated 02/14/20 22:47 SARS-CoV-2 (PCR) Negative (NEGATIVE) 02/14/20 00:29 Blood Type O POSITIVE 02/14/20 05:42 Antibody Screen Negative 02/14/20 05:42 Crossmatch See Detail 02/14/20 05:42 Plan (1) Suspected COVID-19 virus infection: Status: Acute (2) Acute on chronic renal failure: Status: Acute Qualifiers: Acute renal failure type: unspecified Chronic kidney disease stage: unspecified stage Qualified Code(s): N17.9 - Acute kidney failure, unspecified; N18.9 - Chronic kidney disease, unspecified (3) Severe anemia: Status: Acute (4) CAD (coronary artery disease): Status: Acute Qualifiers: Associated angina: with unspecified angina Coronary Disease-Associated Artery/Lesion type: unspecified vessel or lesion type [place] vs. transplanted heart: [place] heart Qualified Code(s): I25.119 - Atherosclerotic heart disease of [place] coronary artery with unspecified angina pectoris (5) HTN (hypertension): Status: Acute Qualifiers: Hypertension type: essential hypertension Qualified Code(s): I10 - Essential (primary) hypertension (6) Rheumatoid arthritis: Status: Acute Qualifiers: Rheumatoid arthritis location: multiple sites Rheumatoid factor presence: unspecified presence Qualified Code(s): M06.9 - Rheumatoid arthritis, unspecified (7) Chronic kidney disease (CKD): Status: Acute Qualifiers: Chronic kidney disease stage: stage 3 (moderate) Qualified Code(s): N18.3 - Chronic kidney disease, stage 3 (moderate)
[2020-02-15] MEDS ORDERED: PROTONIX TAB 40 MG PO ONE (15:03)
[2020-02-15] MEDS: PROTONIX TAB 40 MG PO SCH (15:11)
[2020-02-15] MEDS: FERROUS GLUCONATE PO SCH (17:20)
[2020-02-15] MEDS: PULMICORT NEB TX 0.5 MG NEB SCH ×2 (18:31→21:00)
[2020-02-15] MEDS: SUVOREXANT 15 MG PO SCH (21:33)
[2020-02-15] MEDS: REQUIP PO SCH (21:33)
[2020-02-16] MEDS: ZOSYN VIAL 3.375 GRAMS 3.375 G in NS 100 ML IV + SPIKE MINIBAG* 100 ML IV SCH ×3 (05:40→21:51)
[2020-02-16 06:07] LABS: BASOPHILS % (AUTO) 0.1 % (0.2-1.0); HEMATOCRIT 30.9 % (36.0-47.0); HEMOGLOBIN 9.7 g/dL (12.0-16.0); LYMPHOCYTES # (AUTO) 0.4 X10^3/uL (1.3-2.9); LYMPHOCYTES % (AUTO) 2.1 % (21.0-51.0); MEAN CORPUSCULAR HEMOGLOBIN 24.1 pg (27.0-34.0); MEAN CORPUSCULAR HGB CONC 31.3 g/dL (33.0-35.0); MEAN CORPUSCULAR VOLUME 77.1 fL (80.0-100.0); MEAN PLATELET VOLUME 8.2 fL (7.4-11.0); MONOCYTES # (AUTO) 0.5 x10^3/uL (0.3-0.8); MONOCYTES % (AUTO) 2.6 % (0.0-13.0); NEUTROPHILS # (AUTO) 18.2 x10^3/uL (2.2-4.8); NEUTROPHILS % (AUTO) 95.2 % (42.0-75.0); PLATELET COUNT 214 X10^3/uL (150.0-450.0); RED BLOOD COUNT 4.01 X10^6/uL (3.5-5.4); RED CELL DISTRIBUTION WIDTH 18.3 % (11.6-16.5); WHITE BLOOD COUNT 19.1 X10^3/uL (3.6-10.0)
[2020-02-16] MEDS: FERROUS GLUCONATE PO SCH ×2 (06:13→16:23)
[2020-02-16 06:21] LABS: BLOOD UREA NITROGEN 23 mg/dL (7-18); CALCIUM 8.3 mg/dL (8.5-10.1); CARBON DIOXIDE 18.5 mmol/L (21-32); CHLORIDE 110 mmol/L (98-107); COR NA(FOR HYPERGLY) 142 mmol/L (136-145); SODIUM 141 mmol/L (136-145); eGFR NON BLACK RACES > 60 (>60)
[2020-02-16 07:23] LABS: PLATELET MORPHOLOGY COMMENT NORMAL (NORMAL)
[2020-02-16] MEDS ORDERED: REMDESIVIR (INVESTIGATIONAL DRUG GS-5734) 200 MG in NS 250 ML IV 250 ML IV NR (08:00)
[2020-02-16] MEDS: PROVENTIL NEB TX 0.083% 2.5MG/ 3ML NEB SCH ×4 (09:00→20:44)
[2020-02-16] MEDS: PULMICORT NEB TX 0.5 MG NEB SCH ×2 (09:00→20:43)
[2020-02-16] MEDS ORDERED: REMDESIVIR (INVESTIGATIONAL DRUG GS-5734) IV ONE (09:01)
[2020-02-16] MEDS ORDERED: NS 250 ML IV 250 ML IV ONE (09:02)
[2020-02-16] MEDS: ROBITUSSIN DM PO SCH ×4 (09:13→20:43)
[2020-02-16] MEDS: ZITHROMAX TAB 250 MG PO SCH (09:13)
[2020-02-16] MEDS: VITAMIN C PO SCH (09:14)
[2020-02-16] MEDS: SOLU-Medrol 125 MG VIAL IVP SCH ×2 (09:14→20:43)
[2020-02-16] MEDS: ZESTRIL TAB 40 MG PO SCH ×2 (09:15→20:44)
[2020-02-16] MEDS: LIPITOR TAB 20 MG PO SCH (09:16)
[2020-02-16] MEDS: VITAMIN D3 125 mcg (5,000 UNITS) PO SCH (09:16)
[2020-02-16] MEDS: ASPIRIN EC 81 MG PO SCH (09:17)
[2020-02-16] MEDS: ALDACTONE TAB 25 MG PO SCH (09:17)
[2020-02-16] MEDS: OSCAL+D or CALTRATE+D PO SCH (09:18)
[2020-02-16] MEDS: PLAVIX PO SCH (09:18)
[2020-02-16] MEDS: LOPRESSOR TAB 25 MG PO SCH ×2 (09:20→20:43)
[2020-02-16] MEDS: NEURONTIN CAP 100 MG PO SCH ×4 (09:21→20:43)
[2020-02-16] MEDS: SYNTHROID 88 mcg TAB PO SCH (09:21)
[2020-02-16] MEDS: NORVASC TAB 5 MG PO SCH (09:22)
[2020-02-16] MEDS: NORCO 7.5/325 MG TAB PO PRN ×2 (09:26→23:03)
--- NOTE | 2020-02-16 09:35 | RAD ---
HISTORYHYPOXIA, COVID 19STUDYCHEST, 1 VIEWCOMPARISONChest radiograph done February 13, 2020FINDINGSSince the prior exam there has been development bilateral upper lobe pulmonary opacities greatest involving the right lung. There is mild prominence of the interstitium. Heart size is normal. No pneumothorax is seen.Conclusion: New bilateral pulmonary airspace opacities, greater on the right could represent pulmonary edema versus developing atypical pneumonias.Electronically signed by: JEREMIAS QUIROGA (Feb 16, 2020 09:35:14)
--- NOTE | 2020-02-16 10:23 | PCM.PROG ---
Progress Note Progress Note for Day of Date of Exam: 02/16/20 Subjective Subjective: Patient seen at bedside, she states she had some SOB last night and had to be placed on 3 L oxygen via NC. She is coughing up sputum. She states she felt better after a breathing treatment last night. She has not gotten one this morning yet. She also states her BP has been elevated and she has a headache. Denies N/V/D or abdominal pain. Denies fever or chills. Labs: Hgb 9.7 s/p 2 units PRBCs, WBC: 19.1 BUN/Cr: 23/0.9 Iron 5 Ferritin 30 Sputum Cx: gram neg rods, yeast Covid PCR pending Plan: will repeat CXR, continue Zosyn and Zithromax, add remdesivir, schedule duonebs, follow cultures. Continue solumedrol. Monitor AM labs. Wean O2 as tolerated. Resume lisinopril. Past Medical Family Social History Past Med/Fam/Surg Hx: No changes since H&P Allergies: Allergies Tetanus Vaccines and Toxoid Allergy (Verified 12/04/19 20:57) Review of Systems ROS: No change since H&P Vital Signs and I&O's Vital Signs: Temperature 98.2 F Pulse Rate [Left Radial] 97 Pulse Rate 74 Respiratory Rate 22 Blood Pressure [Right Arm] 183/83 Blood Pressure 106/55 O2 Sat by Pulse Oximetry 88 Intake and Output: Intake & Output 02/13/20 02/14/20 02/15/20 02/16/20 23:59 23:59 23:59 23:59 Intake Total 2850 / 2850 3163 / 3163 480 / 480 Output Total 500 / 500 Balance 2350 / 2350 3163 / 3163 480 / 480 Physical Exam Oriented: Normal Eyes: Normal Ear: Normal Nose: Normal Throat: Normal Respiratory: Generalized, Diminished and Rhonchi Cardiovascular: Normal Auscultation: Bowel Sounds: Normal Tenderness: Normal Skin: Decreased [place] Musculoskeletal: Normal Psychiatric: Normal Mood Description: Calm Affect: Normal Speech Pattern: Clear and Appropriate Laboratory and Diagnostics Result Diagrams: 02/16/20 05:32 02/16/20 05:32 Labs: 02/14/20 02:55 Sputum - Expectorated Sputum Sputum Culture - Preliminary 02/14/20 02:55 Sputum - Expectorated Sputum - Final 02/13/20 21:48 Blood Blood Culture - Preliminary 02/13/20 21:50 Blood Blood Culture - Preliminary Laboratory WBC 19.1 X10^3/uL (3.6-10.0) H 02/16/20 05:32 RBC 4.01 X10^6/uL (3.5-5.4) 02/16/20 05:32 Hgb 9.7 g/dL (12.0-16.0) L 02/16/20 05:32 Hct 30.9 % (36.0-47.0) L 02/16/20 05:32 MCV 77.1 fL (80.0-100.0) L 02/16/20 05:32 MCH 24.1 pg (27.0-34.0) L 02/16/20 05:32 MCHC 31.3 g/dL (33.0-35.0) L 02/16/20 05:32 RDW 18.3 % (11.6-16.5) H 02/16/20 05:32 Plt Count 214 X10^3/uL (150.0-450.0) 02/16/20 05:32 Plt Count Comment Adequate (ADEQUATE) 02/16/20 05:32 MPV 8.2 fL (7.4-11.0) 02/16/20 05:32 Neut % (Auto) 95.2 % (42.0-75.0) H 02/16/20 05:32 Lymph % (Auto) 2.1 % (21.0-51.0) L 02/16/20 05:32 [place] % (Auto) 2.6 % (0.0-13.0) 02/16/20 05:32 Eos % (Auto) 0.0 % (0.9-2.9) L 02/16/20 05:32 Baso % (Auto) 0.1 % (0.2-1.0) L 02/16/20 05:32 Neut # (Auto) 18.2 x10^3/uL (2.2-4.8) H 02/16/20 05:32 Lymph # (Auto) 0.4 X10^3/uL (1.3-2.9) L 02/16/20 05:32 [place] # (Auto) 0.5 x10^3/uL (0.3-0.8) 02/16/20 05:32 Eos # (Auto) 0.0 x10^3/uL (0.0-0.2) 02/16/20 05:32 Baso # (Auto) 0.0 X10^3/uL (0.0-0.1) 02/16/20 05:32 Absolute Nucleated RBC 0.1 /100WBC 02/16/20 05:32 Total Counted 100 02/16/20 05:32 Neutrophils % (Manual) 92 % (39-76) H 02/16/20 05:32 Band Neutrophils % 4 % (0-10) 02/15/20 05:10 Lymphocytes % (Manual) 6 % (13-43) L 02/16/20 05:32 Monocytes % (Manual) 2 % (4-9) L 02/16/20 05:32 Plt Morphology Comment Normal (NORMAL) 02/16/20 05:32 RBC Morphology Normal (NORMAL) 02/16/20 05:32 Hypochromasia 1+ A 02/14/20 04:10 Sodium 141 mmol/L (136-145) 02/16/20 05:32 Corrected Sodium 142 mmol/L (136-145) 02/16/20 05:32 Potassium 3.6 mmol/L (3.5-5.1) 02/16/20 05:32 Chloride 110 mmol/L (98-107) H 02/16/20 05:32 Carbon Dioxide 18.5 mmol/L (21-32) L 02/16/20 05:32 BUN 23 mg/dL (7-18) H 02/16/20 05:32 Creatinine 0.90 mg/dL (0.55-1.02) 02/16/20 05:32 Est GFR (MDRD) Af Amer > 60 (>60) 02/16/20 05:32 Est GFR (MDRD) Non-Af > 60 (>60) 02/16/20 05:32 Glucose 148 mg/dL (65-99) H 02/16/20 05:32 Calcium 8.3 mg/dL (8.5-10.1) L 02/16/20 05:32 Corrected Calcium 9.8 mg/dL (8.5-10.1) 02/14/20 04:10 Iron 5 ug/dL (50-175) L 02/14/20 04:10 Transferrin 211 mg/dL (202-364) 02/14/20 04:10 Ferritin 30 ng/mL (8-252) 02/14/20 04:10 Total Bilirubin 0.10 mg/dL (0.2-1.0) L 02/14/20 04:10 AST 26 Units/L (15-37) 02/14/20 04:10 ALT 16 Units/L (12-78) 02/14/20 04:10 Alkaline Phosphatase 109 Units/L (46-116) 02/14/20 04:10 Total Protein 5.8 g/dL (6.4-8.2) L 02/14/20 04:10 Albumin 2.4 g/dL (3.4-5.0) L 02/14/20 04:10 Globulin 3.4 g/dL (2.5-4.5) 02/14/20 04:10 Albumin/Globulin Ratio 0.7 Ratio (1.1-2.1) L 02/14/20 04:10 Vitamin B12 617 pg/mL (193-986) 02/14/20 04:10 Folate 13.9 ng/mL (>8.6) 02/14/20 04:10 Specimen Type Clean catch urine 02/14/20 22:47 Urine Color Straw (YELLOW) 02/14/20 22:47 Urine Appearance Clear (CLEAR) 02/14/20 22:47 Urine pH 5.0 (5.0 - 8.0) 02/14/20 22:47 Ur Specific [place] 1.010 (1.000-1.030) 02/14/20 22:47 Urine Protein 2+ (NEGATIVE) 02/14/20 22:47 Urine Glucose (UA) Negative (NEGATIVE) 02/14/20 22:47 Urine Ketones Negative (NEGATIVE) 02/14/20 22:47 Urine Occult Blood 2+ (NEGATIVE) 02/14/20 22:47 Urine Nitrite Negative (NEGATIVE) 02/14/20 22:47 Urine Bilirubin Negative (NEGATIVE) 02/14/20 22:47 Urine Urobilinogen Normal (NORMAL) 02/14/20 22:47 Ur Leukocyte Esterase 3+ (NEGATIVE) 02/14/20 22:47 Urine RBC 0-2 /HPF (0-3) 02/14/20 22:47 Urine WBC 3-5 /HPF (0-5) 02/14/20 22:47 Ur Squamous Epith Cells Few /HPF (NEGATIVE) 02/14/20 22:47 Urine Bacteria Trace /HPF (NEGATIVE) 02/14/20 22:47 Ur Culture Indicated? No/not indicated 02/14/20 22:47 Stool Description 25g dark brown soft 02/15/20 18:47 Stl Occult Blood (IFOB) Positive (NEGATIVE) A 02/15/20 18:47 SARS-CoV-2 (PCR) Negative (NEGATIVE) 02/14/20 00:29 Blood Type O POSITIVE 02/14/20 05:42 Antibody Screen Negative 02/14/20 05:42 Crossmatch See Detail 02/14/20 05:42 Plan (1) Suspected COVID-19 virus infection: Status: Acute (2) Acute on chronic renal failure: Status: Acute Qualifiers: Acute renal failure type: unspecified Chronic kidney disease stage: unspecified stage Qualified Code(s): N17.9 - Acute kidney failure, unspecified; N18.9 - Chronic kidney disease, unspecified (3) Severe anemia: Status: Acute (4) CAD (coronary artery disease): Status: Acute Qualifiers: Associated angina: with unspecified angina Coronary Disease-Associated Artery/Lesion type: unspecified vessel or lesion type [place] vs. transplanted heart: [place] heart Qualified Code(s): I25.119 - Atherosclerotic heart disease of [place] coronary artery with unspecified angina pectoris (5) HTN (hypertension): Status: Acute Qualifiers: Hypertension type: essential hypertension Qualified Code(s): I10 - Essential (primary) hypertension (6) Rheumatoid arthritis: Status: Acute Qualifiers: Rheumatoid arthritis location: multiple sites Rheumatoid factor presenc e: unspecified presence Qualified Code(s): M06.9 - Rheumatoid arthritis, unspecified (7) Chronic kidney disease (CKD): Status: Acute Qualifiers: Chronic kidney disease stage: stage 3 (moderate) Qualified Code(s): N18.3 - Chronic kidney disease, stage 3 (moderate)
[2020-02-16] MEDS ORDERED: PROTONIX TAB 40 MG PO ONE (14:08)
[2020-02-16] MEDS: PROTONIX TAB 40 MG PO SCH (15:14)
[2020-02-16] MEDS ORDERED: POTASSIUM CHLORIDE LIQ 20 MEQ UDC PO PRN (16:48)
[2020-02-16] MEDS ORDERED: POTASSIUM CHL 60 MEQ/NS 0.45% 500 ML IV PRN (16:48)
[2020-02-16] MEDS ORDERED: POTASSIUM CHL 40 MEQ/NS 0.45% 500 ML IV PRN (16:48)
[2020-02-16] MEDS ORDERED: KLOR-CON PO PRN (16:48)
[2020-02-16] MEDS ORDERED: MICRO K EXTEN CAP 10 MEQ PO PRN (16:48)
[2020-02-16] MEDS ORDERED: K-RIDER 10 MEQ/NS 100 ML 10 MEQ/100 ML BAG IV PRN (16:48)
[2020-02-16] MEDS: K-DUR TAB 20 MEQ PO PRN (18:23)
[2020-02-16] MEDS: REQUIP PO SCH (20:43)
[2020-02-16] MEDS: SUVOREXANT 15 MG PO SCH (20:44)
[2020-02-17 05:15] LABS: BASOPHILS % (AUTO) 0.1 % (0.2-1.0); HEMATOCRIT 31.4 % (36.0-47.0); HEMOGLOBIN 9.8 g/dL (12.0-16.0); LYMPHOCYTES # (AUTO) 0.4 X10^3/uL (1.3-2.9); LYMPHOCYTES % (AUTO) 2.3 % (21.0-51.0); MEAN CORPUSCULAR HEMOGLOBIN 23.9 pg (27.0-34.0); MEAN CORPUSCULAR HGB CONC 31.3 g/dL (33.0-35.0); MEAN CORPUSCULAR VOLUME 76.5 fL (80.0-100.0); MEAN PLATELET VOLUME 8.1 fL (7.4-11.0); MONOCYTES # (AUTO) 0.5 x10^3/uL (0.3-0.8); MONOCYTES % (AUTO) 2.5 % (0.0-13.0); NEUTROPHILS # (AUTO) 18.5 x10^3/uL (2.2-4.8); NEUTROPHILS % (AUTO) 95.1 % (42.0-75.0); PLATELET COUNT 227 X10^3/uL (150.0-450.0); RED BLOOD COUNT 4.11 X10^6/uL (3.5-5.4); RED CELL DISTRIBUTION WIDTH 18.3 % (11.6-16.5); WHITE BLOOD COUNT 19.4 X10^3/uL (3.6-10.0)
[2020-02-17 05:34] LABS: BLOOD UREA NITROGEN 19 mg/dL (7-18); CALCIUM 8.7 mg/dL (8.5-10.1); CARBON DIOXIDE 18.5 mmol/L (21-32); CHLORIDE 110 mmol/L (98-107); COR NA(FOR HYPERGLY) 142 mmol/L (136-145); CREATININE 0.94 mg/dL (0.55-1.02); SODIUM 142 mmol/L (136-145); eGFR NON BLACK RACES > 60 (>60)
[2020-02-17] MEDS: ZOSYN VIAL 3.375 GRAMS 3.375 G in NS 100 ML IV + SPIKE MINIBAG* 100 ML IV SCH (05:40)
[2020-02-17 05:53] LABS: HYPOCHROMASIA SLIGHT; PLATELET MORPHOLOGY COMMENT NORMAL (NORMAL)
[2020-02-17] MEDS: VITAMIN D3 125 mcg (5,000 UNITS) PO SCH (08:41)
[2020-02-17] MEDS: NORVASC TAB 5 MG PO SCH (08:42)
[2020-02-17] MEDS: LOPRESSOR TAB 25 MG PO SCH ×2 (08:42→21:01)
[2020-02-17] MEDS: LIPITOR TAB 20 MG PO SCH (08:42)
[2020-02-17] MEDS: ZESTRIL TAB 40 MG PO SCH ×2 (08:43→21:02)
[2020-02-17] MEDS: PLAVIX PO SCH (08:43)
[2020-02-17] MEDS: SYNTHROID 88 mcg TAB PO SCH (08:43)
[2020-02-17] MEDS: OSCAL+D or CALTRATE+D PO SCH (08:44)
[2020-02-17] MEDS: NEURONTIN CAP 100 MG PO SCH ×4 (08:45→21:02)
[2020-02-17] MEDS: ASPIRIN EC 81 MG PO SCH (08:45)
[2020-02-17] MEDS: ZITHROMAX TAB 250 MG PO SCH (08:45)
[2020-02-17] MEDS: FERROUS GLUCONATE PO SCH ×2 (08:45→17:09)
[2020-02-17] MEDS: REMDESIVIR (INVESTIGATIONAL DRUG GS-5734) 100 MG in NS 250 ML IV 250 ML IV SCH (08:46)
[2020-02-17] MEDS: ROBITUSSIN DM PO SCH ×4 (08:46→21:02)
[2020-02-17] MEDS: ALDACTONE TAB 25 MG PO SCH (08:46)
[2020-02-17] MEDS: VITAMIN C PO SCH (08:46)
[2020-02-17] MEDS ORDERED: DECADRON TAB PO SCH (09:00)
[2020-02-17] MEDS: PULMICORT NEB TX 0.5 MG NEB SCH ×2 (09:02→20:20)
[2020-02-17] MEDS: PROVENTIL NEB TX 0.083% 2.5MG/ 3ML NEB SCH ×4 (09:02→20:20)
--- NOTE | 2020-02-17 09:38 | PCM.PROG ---
Progress Note Progress Note for Day of Date of Exam: 02/17/20 Subjective Subjective: Patient seen at bedside, reports having more cough overnight. She has been coughing sputum. She feels SOB with exertion. She has been ambulating to the bathroom but gets SOB easily. She is currently on 4L O2 via NC. Denies fever or chills. Denies N/V or abdominal pain. She did have 2 episodes of diarrhea yesterday but resolved. She has been eating well. She denies any bleeding. Patient states she received a call last night and was notified that her COVID test is positive. Labs: Hgb 9.8 BUN/Cr: 19/0.94 Glu 119 WBC 19.4 COVID positive Sputum Cx: ESBL E.coli FOBT positive Iron 5 Ferritin 30 CXR: increased b/l upper lobe opacities, R>L Plan: will switch Zosyn to Merrem, continue steroids, remdesivir and zithromax. Patient states she is seeing GI and was supposed to be scheduled for EGD due to her anemia but due to covid, her procedure was not scheduled. She denies hx of ulcers or melena. She had colonoscopy over 10 years ago. Monitor AM labs. Continue duonebs, pulmicort, PT/OT. Wean O2 as tolerated. Past Medical Family Social History Past Med/Fam/Surg Hx: No changes since H&P Allergies: Allergies Tetanus Vaccines and Toxoid Allergy (Verified 12/04/19 20:57) Review of Systems ROS: No change since H&P Vital Signs and I&O's Vital Signs: Temperature 97.6 F Pulse Rate [Left Radial] 82 Pulse Rate 76 Respiratory Rate 21 Blood Pressure [Right Arm] 182/79 Blood Pressure 106/55 O2 Sat by Pulse Oximetry 93 Intake and Output: Intake & Output 02/14/20 02/15/20 02/16/20 02/17/20 23:59 23:59 23:59 23:59 Intake Total 2850 / 2850 3163 / 3163 2948 / 2948 170 / 170 Output Total 500 / 500 Balance 2350 / 2350 3163 / 3163 2948 / 2948 170 / 170 Physical Exam Oriented: Normal Eyes: Normal Ear: Normal Nose: Normal Throat: Normal Respiratory: Generalized and Diminished Cardiovascular: Normal Auscultation: Bowel Sounds: Normal Tenderness: Normal Skin: Decreased [place] Musculoskeletal: Normal Psychiatric: Normal Mood Description: Calm Affect: Normal Speech Pattern: Clear and Appropriate Laboratory and Diagnostics Result Diagrams: 02/17/20 04:20 02/17/20 04:20 Labs: 02/14/20 02:55 Sputum - Expectorated Sputum Sputum Culture - Final Escherichia Coli 02/14/20 02:55 Sputum - Expectorated Sputum - Final 02/13/20 21:48 Blood Blood Culture - Preliminary 02/13/20 21:50 Blood Blood Culture - Preliminary Laboratory WBC 19.4 X10^3/uL (3.6-10.0) H 02/17/20 04:20 RBC 4.11 X10^6/uL (3.5-5.4) 02/17/20 04:20 Hgb 9.8 g/dL (12.0-16.0) L 02/17/20 04:20 Hct 31.4 % (36.0-47.0) L 02/17/20 04:20 MCV 76.5 fL (80.0-100.0) L 02/17/20 04:20 MCH 23.9 pg (27.0-34.0) L 02/17/20 04:20 MCHC 31.3 g/dL (33.0-35.0) L 02/17/20 04:20 RDW 18.3 % (11.6-16.5) H 02/17/20 04:20 Plt Count 227 X10^3/uL (150.0-450.0) 02/17/20 04:20 Plt Count Comment Adequate (ADEQUATE) 02/17/20 04:20 MPV 8.1 fL (7.4-11.0) 02/17/20 04:20 Neut % (Auto) 95.1 % (42.0-75.0) H 02/17/20 04:20 Lymph % (Auto) 2.3 % (21.0-51.0) L 02/17/20 04:20 [place] % (Auto) 2.5 % (0.0-13.0) 02/17/20 04:20 Eos % (Auto) 0.0 % (0.9-2.9) L 02/17/20 04:20 Baso % (Auto) 0.1 % (0.2-1.0) L 02/17/20 04:20 Neut # (Auto) 18.5 x10^3/uL (2.2-4.8) H 02/17/20 04:20 Lymph # (Auto) 0.4 X10^3/uL (1.3-2.9) L 02/17/20 04:20 [place] # (Auto) 0.5 x10^3/uL (0.3-0.8) 02/17/20 04:20 Eos # (Auto) 0.0 x10^3/uL (0.0-0.2) 02/17/20 04:20 Baso # (Auto) 0.0 X10^3/uL (0.0-0.1) 02/17/20 04:20 Absolute Nucleated RBC 0.0 /100WBC 02/17/20 04:20 Total Counted 100 02/17/20 04:20 Neutrophils % (Manual) 95 % (39-76) H 02/17/20 04:20 Band Neutrophils % 4 % (0-10) 02/15/20 05:10 Lymphocytes % (Manual) 3 % (13-43) L 02/17/20 04:20 Monocytes % (Manual) 2 % (4-9) L 02/17/20 04:20 Plt Morphology Comment Normal (NORMAL) 02/17/20 04:20 RBC Morphology Abnormal (NORMAL) A 02/17/20 04:20 Hypochromasia Slight A 02/17/20 04:20 Sodium 142 mmol/L (136-145) 02/17/20 04:20 Corrected Sodium 142 mmol/L (136-145) 02/17/20 04:20 Potassium 3.7 mmol/L (3.5-5.1) 02/17/20 04:20 Chloride 110 mmol/L (98-107) H 02/17/20 04:20 Carbon Dioxide 18.5 mmol/L (21-32) L 02/17/20 04:20 BUN 19 mg/dL (7-18) H 02/17/20 04:20 Creatinine 0.94 mg/dL (0.55-1.02) 02/17/20 04:20 Est GFR (MDRD) Af Amer > 60 (>60) 02/17/20 04:20 Est GFR (MDRD) Non-Af > 60 (>60) 02/17/20 04:20 Glucose 119 mg/dL (65-99) H 02/17/20 04:20 Calcium 8.7 mg/dL (8.5-10.1) 02/17/20 04:20 Corrected Calcium 9.8 mg/dL (8.5-10.1) 02/14/20 04:10 Magnesium 2.0 mg/dL (1.7-2.9) 02/16/20 05:32 Iron 5 ug/dL (50-175) L 02/14/20 04:10 Transferrin 211 mg/dL (202-364) 02/14/20 04:10 Ferritin 30 ng/mL (8-252) 02/14/20 04:10 Total Bilirubin 0.10 mg/dL (0.2-1.0) L 02/14/20 04:10 AST 26 Units/L (15-37) 02/14/20 04:10 ALT 16 Units/L (12-78) 02/14/20 04:10 Alkaline Phosphatase 109 Units/L (46-116) 02/14/20 04:10 Total Protein 5.8 g/dL (6.4-8.2) L 02/14/20 04:10 Albumin 2.4 g/dL (3.4-5.0) L 02/14/20 04:10 Globulin 3.4 g/dL (2.5-4.5) 02/14/20 04:10 Albumin/Globulin Ratio 0.7 Ratio (1.1-2.1) L 02/14/20 04:10 Vitamin B12 617 pg/mL (193-986) 02/14/20 04:10 Folate 13.9 ng/mL (>8.6) 02/14/20 04:10 Specimen Type Clean catch urine 02/14/20 22:47 Urine Color Straw (YELLOW) 02/14/20 22:47 Urine Appearance Clear (CLEAR) 02/14/20 22:47 Urine pH 5.0 (5.0 - 8.0) 02/14/20 22:47 Ur Specific [place] 1.010 (1.000-1.030) 02/14/20 22:47 Urine Protein 2+ (NEGATIVE) 02/14/20 22:47 Urine Glucose (UA) Negative (NEGATIVE) 02/14/20 22:47 Urine Ketones Negative (NEGATIVE) 02/14/20 22:47 Urine Occult Blood 2+ (NEGATIVE) 02/14/20 22:47 Urine Nitrite Negative (NEGATIVE) 02/14/20 22:47 Urine Bilirubin Negative (NEGATIVE) 02/14/20 22:47 Urine Urobilinogen Normal (NORMAL) 02/14/20 22:47 Ur Leukocyte Esterase 3+ (NEGATIVE) 02/14/20 22:47 Urine RBC 0-2 /HPF (0-3) 02/14/20 22:47 Urine WBC 3-5 /HPF (0-5) 02/14/20 22:47 Ur Squamous Epith Cells Few /HPF (NEGATIVE) 02/14/20 22:47 Urine Bacteria Trace /HPF (NEGATIVE) 02/14/20 22:47 Ur Culture Indicated? No/not indicated 02/14/20 22:47 Stool Description 25g dark brown soft 02/15/20 18:47 Stl Occult Blood (IFOB) Positive (NEGATIVE) A 02/15/20 18:47 SARS-CoV-2 (PCR) Negative (NEGATIVE) 02/14/20 00:29 Blood Type O POSITIVE 02/14/20 05:42 Antibody Screen Negative 02/14/20 05:42 Crossmatch See Detail 02/14/20 05:42 Plan (1) Suspected COVID-19 virus infection: Status: Acute (2) Acute on chronic renal failure: Status: Acute Qualifiers: Acute renal failure type: unspecified Chronic kidney disease stage: un specified stage Qualified Code(s): N17.9 - Acute kidney failure, unspecified; N18.9 - Chronic kidney disease, unspecified (3) Severe anemia: Status: Acute (4) CAD (coronary artery disease): Status: Acute Qualifiers: Associated angina: with unspecified angina Coronary Disease-Associated Artery/Lesion type: unspecified vessel or lesion type [place] vs. 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
[2020-02-17] MEDS ORDERED: NS 500 ML IV 500 ML IV ONE (10:04)
[2020-02-17] MEDS: PROTONIX TAB 40 MG PO SCH (10:06)
[2020-02-17] MEDS: NORCO 7.5/325 MG TAB PO PRN ×2 (10:07→21:03)
[2020-02-17] MEDS: MERREM VIAL 1,000 MG in NS 100 ML IV + SPIKE MINIBAG* 100 ML IV SCH ×3 (13:09→21:01)
[2020-02-17] MEDS: REQUIP PO SCH (21:01)
[2020-02-17] MEDS: K-DUR TAB 20 MEQ PO PRN (21:03)
[2020-02-18 05:00] LABS: BLOOD UREA NITROGEN 21 mg/dL (7-18); CALCIUM 8.9 mg/dL (8.5-10.1); CARBON DIOXIDE 22.6 mmol/L (21-32); CHLORIDE 110 mmol/L (98-107); CREATININE 0.79 mg/dL (0.55-1.02); SODIUM 143 mmol/L (136-145); eGFR NON BLACK RACES > 60 (>60)
[2020-02-18 05:04] LABS: BASOPHILS % (AUTO) 0.1 % (0.2-1.0); EOSINOPHILS % (AUTO) 0.1 % (0.9-2.9); HEMATOCRIT 31.4 % (36.0-47.0); HEMOGLOBIN 10.1 g/dL (12.0-16.0); LYMPHOCYTES # (AUTO) 0.8 X10^3/uL (1.3-2.9); LYMPHOCYTES % (AUTO) 3.5 % (21.0-51.0); MEAN CORPUSCULAR HEMOGLOBIN 24.5 pg (27.0-34.0); MEAN CORPUSCULAR HGB CONC 32.1 g/dL (33.0-35.0); MEAN CORPUSCULAR VOLUME 76.3 fL (80.0-100.0); MEAN PLATELET VOLUME 7.9 fL (7.4-11.0); MONOCYTES # (AUTO) 1.2 x10^3/uL (0.3-0.8); MONOCYTES % (AUTO) 5.4 % (0.0-13.0); NEUTROPHILS % (AUTO) 90.9 % (42.0-75.0); PLATELET COUNT 247 X10^3/uL (150.0-450.0); RED BLOOD COUNT 4.11 X10^6/uL (3.5-5.4); RED CELL DISTRIBUTION WIDTH 18.5 % (11.6-16.5)
[2020-02-18] MEDS: MERREM VIAL 1,000 MG in NS 100 ML IV + SPIKE MINIBAG* 100 ML IV SCH ×3 (05:11→21:01)
[2020-02-18 05:47] LABS: ANISOCYTOSIS SLIGHT; HYPOCHROMASIA SLIGHT; MICROCYTOSIS SLIGHT; PLATELET MORPHOLOGY COMMENT NORMAL (NORMAL)
[2020-02-18] MEDS: FERROUS GLUCONATE PO SCH ×2 (06:19→16:53)
[2020-02-18] MEDS: PROVENTIL NEB TX 0.083% 2.5MG/ 3ML NEB SCH ×4 (09:00→21:05)
[2020-02-18] MEDS: PULMICORT NEB TX 0.5 MG NEB SCH ×2 (09:00→21:05)
[2020-02-18] MEDS: REMDESIVIR (INVESTIGATIONAL DRUG GS-5734) 100 MG in NS 250 ML IV 250 ML IV SCH (09:30)
[2020-02-18] MEDS: PROTONIX TAB 40 MG PO SCH (09:30)
[2020-02-18] MEDS: VITAMIN D3 125 mcg (5,000 UNITS) PO SCH (09:30)
[2020-02-18] MEDS: SYNTHROID 88 mcg TAB PO SCH (09:30)
[2020-02-18] MEDS: ZITHROMAX TAB 250 MG PO SCH (09:30)
[2020-02-18] MEDS: ROBITUSSIN DM PO SCH ×4 (09:30→21:01)
[2020-02-18] MEDS: ZESTRIL TAB 40 MG PO SCH ×2 (09:30→21:01)
[2020-02-18] MEDS: OSCAL+D or CALTRATE+D PO SCH (09:30)
[2020-02-18] MEDS: ALDACTONE TAB 25 MG PO SCH (09:30)
[2020-02-18] MEDS: PLAVIX PO SCH (09:30)
[2020-02-18] MEDS: VITAMIN C PO SCH (09:30)
[2020-02-18] MEDS: NORCO 7.5/325 MG TAB PO PRN ×3 (09:30→22:06)
[2020-02-18] MEDS: LOPRESSOR TAB 25 MG PO SCH ×2 (09:39→21:00)
[2020-02-18] MEDS: ASPIRIN EC 81 MG PO SCH (09:39)
[2020-02-18] MEDS: NEURONTIN CAP 100 MG PO SCH ×4 (09:39→21:00)
[2020-02-18] MEDS: LIPITOR TAB 20 MG PO SCH (09:39)
[2020-02-18] MEDS: NORVASC TAB 5 MG PO SCH (09:40)
[2020-02-18] MEDS: K-DUR TAB 20 MEQ PO PRN (09:46)
[2020-02-18] MEDS ORDERED: VITAMIN E 1000 UNIT PO SCH (11:45)
--- NOTE | 2020-02-18 11:48 | PCM.PROG ---
Progress Note Progress Note for Day of Date of Exam: 02/18/20 Subjective Subjective: Patient seen at bedside, patient reports she was not able to get much sleep last night due to hurting all over. She states her joint pain has worsened. She states her breathing and cough is about the same. Denies fever or chills. She is having diarrhea, had 4 episodes yesterday and 2 this morning. Denies nausea or vomiting. She is currently on 3L. Labs: Hgb 10.1 BUN/Cr: 21/0.79 Glu 91WBC:22.0 Repeat COVID PCR done on admission came back negative. Sputum Cx: ESBL E.coli FOBT positive Iron 5 Ferritin 30 CXR: increased b/l upper lobe opacities, R>L Plan: will get stool studies to rule out infection, DC steroids, continue remdesivir and zithromax. Continue Merrem. Monitor AM labs. Continue duonebs, pulmicort, PT/OT. Wean O2 as tolerated. Ambulate TID. Increase patient's pain control to TID prn. Patient states she received a call 2 days ago saying her test was positive. Past Medical Family Social History Past Med/Fam/Surg Hx: No changes since H&P Allergies: Allergies Tetanus Vaccines and Toxoid Allergy (Verified 12/04/19 20:57) Review of Systems ROS: No change since H&P Vital Signs and I&O's Vital Signs: Temperature 98.3 F Pulse Rate [Left Radial] 104 Pulse Rate 88 Respiratory Rate 20 Blood Pressure [Right Arm] 184/86 Blood Pressure 106/55 O2 Sat by Pulse Oximetry 96 Intake and Output: Intake & Output 02/15/20 02/16/20 02/17/20 02/18/20 23:59 23:59 23:59 23:59 Intake Total 3163 / 3163 2948 / 2948 3723 / 3723 220 / 220 Balance 3163 / 3163 2948 / 2948 3723 / 3723 220 / 220 Physical Exam Oriented: Normal Eyes: Normal Ear: Normal Nose: Normal Throat: Normal Respiratory: Generalized and Diminished Cardiovascular: Normal Auscultation: Bowel Sounds: Normal Tenderness: Normal Skin: Decreased [place] Musculoskeletal: Normal Psychiatric: Normal Mood Description: Calm Affect: Normal Speech Pattern: Clear and Appropriate Laboratory and Diagnostics Result Diagrams: 02/18/20 04:40 02/18/20 04:40 Labs: 02/14/20 02:55 Sputum - Expectorated Sputum Sputum Culture - Final Escherichia Coli 02/14/20 02:55 Sputum - Expectorated Sputum - Final 02/13/20 21:48 Blood Blood Culture - Preliminary 02/13/20 21:50 Blood Blood Culture - Preliminary Laboratory WBC 22.0 X10^3/uL (3.6-10.0) H 02/18/20 04:40 RBC 4.11 X10^6/uL (3.5-5.4) 02/18/20 04:40 Hgb 10.1 g/dL (12.0-16.0) L 02/18/20 04:40 Hct 31.4 % (36.0-47.0) L 02/18/20 04:40 MCV 76.3 fL (80.0-100.0) L 02/18/20 04:40 MCH 24.5 pg (27.0-34.0) L 02/18/20 04:40 MCHC 32.1 g/dL (33.0-35.0) L 02/18/20 04:40 RDW 18.5 % (11.6-16.5) H 02/18/20 04:40 Plt Count 247 X10^3/uL (150.0-450.0) 02/18/20 04:40 Plt Count Comment Adequate (ADEQUATE) 02/18/20 04:40 MPV 7.9 fL (7.4-11.0) 02/18/20 04:40 Neut % (Auto) 90.9 % (42.0-75.0) H 02/18/20 04:40 Lymph % (Auto) 3.5 % (21.0-51.0) L 02/18/20 04:40 [place] % (Auto) 5.4 % (0.0-13.0) 02/18/20 04:40 Eos % (Auto) 0.1 % (0.9-2.9) L 02/18/20 04:40 Baso % (Auto) 0.1 % (0.2-1.0) L 02/18/20 04:40 Neut # (Auto) 20.0 x10^3/uL (2.2-4.8) H 02/18/20 04:40 Lymph # (Auto) 0.8 X10^3/uL (1.3-2.9) L 02/18/20 04:40 [place] # (Auto) 1.2 x10^3/uL (0.3-0.8) H 02/18/20 04:40 Eos # (Auto) 0.0 x10^3/uL (0.0-0.2) 02/18/20 04:40 Baso # (Auto) 0.0 X10^3/uL (0.0-0.1) 02/18/20 04:40 Absolute Nucleated RBC 0.1 /100WBC 02/18/20 04:40 Total Counted 100 02/18/20 04:40 Neutrophils % (Manual) 95 % (39-76) H 02/18/20 04:40 Band Neutrophils % 4 % (0-10) 02/15/20 05:10 Lymphocytes % (Manual) 4 % (13-43) L 02/18/20 04:40 Monocytes % (Manual) 1 % (4-9) L 02/18/20 04:40 Plt Morphology Comment Normal (NORMAL) 02/18/20 04:40 RBC Morphology Abnormal (NORMAL) A 02/18/20 04:40 Hypochromasia Slight A 02/18/20 04:40 Anisocytosis Slight A 02/18/20 04:40 Microcytosis Slight A 02/18/20 04:40 Sodium 143 mmol/L (136-145) 02/18/20 04:40 Corrected Sodium TNP 02/18/20 04:40 Potassium 3.7 mmol/L (3.5-5.1) 02/18/20 04:40 Chloride 110 mmol/L (98-107) H 02/18/20 04:40 Carbon Dioxide 22.6 mmol/L (21-32) 02/18/20 04:40 BUN 21 mg/dL (7-18) H 02/18/20 04:40 Creatinine 0.79 mg/dL (0.55-1.02) 02/18/20 04:40 Est GFR (MDRD) Af Amer > 60 (>60) 02/18/20 04:40 Est GFR (MDRD) Non-Af > 60 (>60) 02/18/20 04:40 Glucose 91 mg/dL (65-99) 02/18/20 04:40 Calcium 8.9 mg/dL (8.5-10.1) 02/18/20 04:40 Corrected Calcium 9.8 mg/dL (8.5-10.1) 02/14/20 04:10 Magnesium 2.2 mg/dL (1.7-2.9) 02/18/20 04:40 Iron 5 ug/dL (50-175) L 02/14/20 04:10 Transferrin 211 mg/dL (202-364) 02/14/20 04:10 Ferritin 30 ng/mL (8-252) 02/14/20 04:10 Total Bilirubin 0.10 mg/dL (0.2-1.0) L 02/14/20 04:10 AST 26 Units/L (15-37) 02/14/20 04:10 ALT 16 Units/L (12-78) 02/14/20 04:10 Alkaline Phosphatase 109 Units/L (46-116) 02/14/20 04:10 C-Reactive Protein 55.20 mg/L (0-3.0) H 02/17/20 04:20 Total Protein 5.8 g/dL (6.4-8.2) L 02/14/20 04:10 Albumin 2.4 g/dL (3.4-5.0) L 02/14/20 04:10 Globulin 3.4 g/dL (2.5-4.5) 02/14/20 04:10 Albumin/Globulin Ratio 0.7 Ratio (1.1-2.1) L 02/14/20 04:10 Vitamin B12 617 pg/mL (193-986) 02/14/20 04:10 Folate 13.9 ng/mL (>8.6) 02/14/20 04:10 Specimen Type Clean catch urine 02/14/20 22:47 Urine Color Straw (YELLOW) 02/14/20 22:47 Urine Appearance Clear (CLEAR) 02/14/20 22:47 Urine pH 5.0 (5.0 - 8.0) 02/14/20 22:47 Ur Specific [place] 1.010 (1.000-1.030) 02/14/20 22:47 Urine Protein 2+ (NEGATIVE) 02/14/20 22:47 Urine Glucose (UA) Negative (NEGATIVE) 02/14/20 22:47 Urine Ketones Negative (NEGATIVE) 02/14/20 22:47 Urine Occult Blood 2+ (NEGATIVE) 02/14/20 22:47 Urine Nitrite Negative (NEGATIVE) 02/14/20 22:47 Urine Bilirubin Negative (NEGATIVE) 02/14/20 22:47 Urine Urobilinogen Normal (NORMAL) 02/14/20 22:47 Ur Leukocyte Esterase 3+ (NEGATIVE) 02/14/20 22:47 Urine RBC 0-2 /HPF (0-3) 02/14/20 22:47 Urine WBC 3-5 /HPF (0-5) 02/14/20 22:47 Ur Squamous Epith Cells Few /HPF (NEGATIVE) 02/14/20 22:47 Urine Bacteria Trace /HPF (NEGATIVE) 02/14/20 22:47 Ur Culture Indicated? No/not indicated 02/14/20 22:47 Stool Description 25g dark brown soft 02/15/20 18:47 Stl Occult Blood (IFOB) Positive (NEGATIVE) A 02/15/20 18:47 SARS-CoV-2 (PCR) Negative (NEGATIVE) 02/14/20 00:29 Miscellaneous Test Covid 19 02/14/20 07:57 Blood Type O POSITIVE 02/14/20 05:42 Antibody Screen Negative 02/14/20 05:42 Crossmatch See Detail 02/14/20 05:42 Plan (1) Suspected COVID-19 virus infection: Status: Acute (2) Acute on chronic renal failure: Status: Acute Qualifiers: Acute renal failure type: unspecified Chronic kidney disease stage: unspecified stage Qualified Code(s): N17.9 - Acute kidney failure, unspecified; N18.9 - Chronic kidney disease, unspecified (3) Severe anemia: Status: Acute (4) CAD (coronary artery disease): Status: Acute Qualifiers: Coronary Disease-Associated Artery/Lesion type: unspecified vessel or lesion type [place] vs. transplanted heart: [place] heart Associated angina: with unspecified angina Qualified Code(s): I25.119 - Atherosclerotic heart disease of [place] coronary artery with unspecified angina pectoris (5) HTN (hypertension): Status: Acute Qualifiers: Hypertension type: essential hypertension Qualified Code(s): I10 - Essential (primary) hypertension (6) Rheumatoid arthritis: Status: Acute Qualifiers: Rheumatoid arthritis location: multiple sites Rheumatoid factor presence: unspecified presence Qualified Code(s): M06.9 - Rheumatoid arthritis, unspecified (7) Chronic kidney disease (CKD): Status: Acute Qualifiers: Chronic kidney disease stage: stage 3 (moderate) Qualified Code(s): N18.3 - Chronic kidney disease, stage 3 (moderate) (8) Diarrhea: Status: Acute Qualifiers: Diarrhea type: unspecified type Qualified Code(s): R19.7 - Diarrhea, unspecified
[2020-02-18] MEDS ORDERED: NS 100 ML IV + SPIKE MINIBAG* 0 ML IV ONE (20:11)
[2020-02-18] MEDS ORDERED: MERREM VIAL ONE (20:16)
[2020-02-18] MEDS ORDERED: NS 100 ML IV 100 ML IV ONE (20:17)
[2020-02-18] MEDS: REQUIP PO SCH (21:00)
[2020-02-19] MEDS ORDERED: MERREM VIAL ONE (04:45)
[2020-02-19] MEDS ORDERED: NS 100 ML IV 100 ML IV ONE (04:45)
[2020-02-19 05:11] LABS: BASOPHILS % (AUTO) 0.2 % (0.2-1.0); EOSINOPHILS # (AUTO) 0.1 x10^3/uL (0.0-0.2); EOSINOPHILS % (AUTO) 0.8 % (0.9-2.9); HEMATOCRIT 31.6 % (36.0-47.0); LYMPHOCYTES # (AUTO) 1.1 X10^3/uL (1.3-2.9); LYMPHOCYTES % (AUTO) 7.9 % (21.0-51.0); MEAN CORPUSCULAR HEMOGLOBIN 24.2 pg (27.0-34.0); MEAN CORPUSCULAR HGB CONC 31.5 g/dL (33.0-35.0); MEAN CORPUSCULAR VOLUME 76.9 fL (80.0-100.0); MEAN PLATELET VOLUME 8.2 fL (7.4-11.0); MONOCYTES # (AUTO) 0.6 x10^3/uL (0.3-0.8); MONOCYTES % (AUTO) 4.2 % (0.0-13.0); NEUTROPHILS # (AUTO) 12.4 x10^3/uL (2.2-4.8); NEUTROPHILS % (AUTO) 86.9 % (42.0-75.0); PLATELET COUNT 220 X10^3/uL (150.0-450.0); RED BLOOD COUNT 4.11 X10^6/uL (3.5-5.4); RED CELL DISTRIBUTION WIDTH 18.8 % (11.6-16.5); WHITE BLOOD COUNT 14.3 X10^3/uL (3.6-10.0)
[2020-02-19 05:14] LABS: BLOOD UREA NITROGEN 19 mg/dL (7-18); CALCIUM 9.2 mg/dL (8.5-10.1); CARBON DIOXIDE 25.6 mmol/L (21-32); CHLORIDE 109 mmol/L (98-107); CREATININE 0.82 mg/dL (0.55-1.02); MAGNESIUM 1.8 mg/dL (1.7-2.9); SODIUM 141 mmol/L (136-145); eGFR NON BLACK RACES > 60 (>60)
[2020-02-19 05:52] LABS: ANISOCYTOSIS SLIGHT; BAND NEUTROPHILS % 1 % (0-10); HYPOCHROMASIA SLIGHT; PLATELET MORPHOLOGY COMMENT NORMAL (NORMAL)
[2020-02-19] MEDS: FERROUS GLUCONATE PO SCH (06:11)
[2020-02-19] MEDS: MERREM VIAL 1,000 MG in NS 100 ML IV + SPIKE MINIBAG* 100 ML IV SCH (06:11)
[2020-02-19] MEDS: PULMICORT NEB TX 0.5 MG NEB SCH (09:30)
[2020-02-19] MEDS: PROVENTIL NEB TX 0.083% 2.5MG/ 3ML NEB SCH ×2 (09:30→12:10)
[2020-02-19] MEDS: ALDACTONE TAB 25 MG PO SCH (09:51)
[2020-02-19] MEDS: ASPIRIN EC 81 MG PO SCH (09:51)
[2020-02-19] MEDS: LIPITOR TAB 20 MG PO SCH (09:52)
[2020-02-19] MEDS: NEURONTIN CAP 100 MG PO SCH (09:53)
[2020-02-19] MEDS: VITAMIN D3 125 mcg (5,000 UNITS) PO SCH (09:53)
[2020-02-19] MEDS: LOPRESSOR TAB 25 MG PO SCH (09:53)
[2020-02-19] MEDS: VITAMIN C PO SCH (09:54)
[2020-02-19] MEDS: ZESTRIL TAB 40 MG PO SCH (09:54)
[2020-02-19] MEDS: SYNTHROID 88 mcg TAB PO SCH (09:54)
[2020-02-19] MEDS: PLAVIX PO SCH (09:55)
[2020-02-19] MEDS: ROBITUSSIN DM PO SCH (09:55)
[2020-02-19] MEDS: PROTONIX TAB 40 MG PO SCH (09:55)
[2020-02-19] MEDS: REMDESIVIR (INVESTIGATIONAL DRUG GS-5734) 100 MG in NS 250 ML IV 250 ML IV SCH (09:55)
[2020-02-19] MEDS: NORVASC TAB 5 MG PO SCH (09:56)
[2020-02-19] MEDS: OSCAL+D or CALTRATE+D PO SCH (09:56)
[2020-02-19] MEDS: NORCO 7.5/325 MG TAB PO PRN (10:12)
[2020-02-19 12:48] VITALS: BP 175/80
--- NOTE | 2020-02-19 13:09 | W.DIS.FURT ---
Summary of Discharge Discharge Summary of Date Date of Exam: 02/19/20 Admission Date Date of Admission: 02/14/20 Admission Diagnosis Hospital Course: Ms. Carroll is a 74y/o female with a PMH of RA, CAD s/p PCI, HTN and anemia presented with worsening cough, fever and chills. She has been having URI sx for the past week. Denies sick contact or known exposure. She also reports worsening joint pain for the past couple days. ED work-up included CXR which initially showed bibasilar atelectaisis, rapid COVID test was negative. COVID PCR test was sent out. Patient's hgb on admission was 7.6. She also had acute kidney injury with elevated BUN/Cr. She was started on IV Rocephin and Azithromycin. Her labs were monitored daily. Her hgb did drop the next day to less than 7 and she was given 2 units of PRBCs. Anemia panel was done and showed JESSICA and FOBT positive. Patient states she is aware of that and has been seeing GI. She is supposed to be scheduled for EGD. Her hgb remained stable after transfusion and she did not have any active bleeding. Patient was having respiratory symptoms including SOB and cough. Cultures were sent and repeat CXR did show pneumonia. She was on 2-3 L oxygen during her stay. She was also started on Remdevisir and steroids due to suspected COVID infection. Patient's COVID PCR test was negative as well but patient reports she received a call from [facility] stating her test was positive. It's unclear who called the patient with that result. Our lab results show patient's test result was negative. PT/OT was consulted and recommended home health. Patient was evaluated by RT and required 2L of continuous home oxygen. Vital Signs: Vital Signs (72 hours) 02/16/20 16:00 02/16/20 16:45 02/16/20 20:00 Temperature 97.9 F 97.6 F Pulse Rate 74 Pulse Rate [Left Radial] 91 H 88 Respiratory Rate 20 20 Blood Pressure [Right Arm] 169/76 172/74 O2 Sat by Pulse Oximetry 91 L 94 L 92 L 02/16/20 20:44 02/16/20 23:03 02/17/20 00:00 Temperature 97.7 F Pulse Rate 71 Pulse Rate [Left Radial] 83 Respiratory Rate 20 20 Blood Pressure [Right Arm] 128/69 O2 Sat by Pulse Oximetry 93 L 91 L 02/17/20 00:03 02/17/20 04:00 02/17/20 08:00 Temperature 97.6 F 98.0 F Pulse Rate Pulse Rate [Left Radial] 82 76 Respiratory Rate 20 21 21 Blood Pressure [Right Arm] 182/79 199/95 O2 Sat by Pulse Oximetry 92 L 93 L 02/17/20 09:03 02/17/20 10:07 02/17/20 11:07 Temperature Pulse Rate 76 Pulse Rate [Left Radial] Respiratory Rate 18 17 Blood Pressure [Right Arm] O2 Sat by Pulse Oximetry 93 L 02/17/20 11:54 02/17/20 12:00 02/17/20 16:00 Temperature 97.7 F 97.6 F Pulse Rate 88 Pulse Rate [Left Radial] 96 H 101 H Respiratory Rate 17 18 Blood Pressure [Right Arm] 184/84 197/86 O2 Sat by Pulse Oximetry 92 L 94 L 92 L 02/17/20 16:14 02/17/20 20:00 02/17/20 20:20 Temperature 97.7 F Pulse Rate 80 88 Pulse Rate [Left Radial] 102 H Respiratory Rate 22 Blood Pressure [Right Arm] 207/98 O2 Sat by Pulse Oximetry 100 96 92 L 02/17/20 21:03 02/17/20 22:03 02/18/20 00:00 Temperature 98.1 F Pulse Rate Pulse Rate [Left Radial] 86 Respiratory Rate 20 20 20 Blood Pressure [Right Arm] 112/77 O2 Sat by Pulse Oximetry 94 L 02/18/20 04:00 02/18/20 08:00 02/18/20 09:00 Temperature 97.7 F 98.3 F Pulse Rate 107 H Pulse Rate [Left Radial] 84 104 H Respiratory Rate 16 22 Blood Pressure [Right Arm] 118/85 204/93 O2 Sat by Pulse Oximetry 95 96 96 02/18/20 09:10 02/18/20 09:30 02/18/20 10:30 Temperature Pulse Rate Pulse Rate [Left Radial] Respiratory Rate 22 20 Blood Pressure [Right Arm] 184/86 O2 Sat by Pulse Oximetry 02/18/20 11:37 02/18/20 12:20 02/18/20 13:58 Temperature 97.4 F L Pulse Rate 86 Pulse Rate [Left Radial] 77 Respiratory Rate 19 19 Blood Pressure [Right Arm] 184/76 O2 Sat by Pulse Oximetry 94 L 91 L 02/18/20 14:58 02/18/20 15:55 02/18/20 17:00 Temperature 97.6 F Pulse Rate 81 Pulse Rate [Left Radial] 80 Respiratory Rate 20 18 Blood Pressure [Right Arm] 185/79 O2 Sat by Pulse Oximetry 96 93 L 02/18/20 20:00 02/18/20 21:05 02/18/20 22:06 Temperature 97.8 F Pulse Rate 88 Pulse Rate [Left Radial] 91 H Respiratory Rate 22 20 Blood Pressure [Right Arm] 180/83 O2 Sat by Pulse Oximetry 97 95 02/18/20 23:06 02/19/20 00:00 02/19/20 04:00 Temperature 98.2 F 97.9 F Pulse Rate Pulse Rate [Left Radial] 72 88 Respiratory Rate 20 20 16 Blood Pressure [Right Arm] 126/72 113/80 O2 Sat by Pulse Oximetry 96 94 L 02/19/20 08:00 02/19/20 09:30 02/19/20 10:12 Temperature 98.2 F Pulse Rate 88 Pulse Rate [Left Radial] 86 Respiratory Rate 20 20 Blood Pressure [Right Arm] 189/86 O2 Sat by Pulse Oximetry 95 98 02/19/20 11:12 02/19/20 12:00 Temperature 98.3 F Pulse Rate Pulse Rate [Left Radial] 88 Respiratory Rate 20 18 Blood Pressure [Right Arm] 175/80 O2 Sat by Pulse Oximetry 96 Labs: Laboratory Last Values WBC 14.3 X10^3/uL (3.6-10.0) H 02/19/20 04:50 RBC 4.11 X10^6/uL (3.5-5.4) 02/19/20 04:50 Hgb 10.0 g/dL (12.0-16.0) L 02/19/20 04:50 Hct 31.6 % (36.0-47.0) L 02/19/20 04:50 MCV 76.9 fL (80.0-100.0) L 02/19/20 04:50 MCH 24.2 pg (27.0-34.0) L 02/19/20 04:50 MCHC 31.5 g/dL (33.0-35.0) L 02/19/20 04:50 RDW 18.8 % (11.6-16.5) H 02/19/20 04:50 Plt Count 220 X10^3/uL (150.0-450.0) 02/19/20 04:50 Plt Count Comment Adequate (ADEQUATE) 02/19/20 04:50 MPV 8.2 fL (7.4-11.0) 02/19/20 04:50 Neut % (Auto) 86.9 % (42.0-75.0) H 02/19/20 04:50 Lymph % (Auto) 7.9 % (21.0-51.0) L 02/19/20 04:50 [place] % (Auto) 4.2 % (0.0-13.0) 02/19/20 04:50 Eos % (Auto) 0.8 % (0.9-2.9) L 02/19/20 04:50 Baso % (Auto) 0.2 % (0.2-1.0) 02/19/20 04:50 Neut # (Auto) 12.4 x10^3/uL (2.2-4.8) H 02/19/20 04:50 Lymph # (Auto) 1.1 X10^3/uL (1.3-2.9) L 02/19/20 04:50 [place] # (Auto) 0.6 x10^3/uL (0.3-0.8) 02/19/20 04:50 Eos # (Auto) 0.1 x10^3/uL (0.0-0.2) 02/19/20 04:50 Baso # (Auto) 0.0 X10^3/uL (0.0-0.1) 02/19/20 04:50 Absolute Nucleated RBC 0.1 /100WBC 02/19/20 04:50 Total Counted 100 02/19/20 04:50 Neutrophils % (Manual) 83 % (39-76) H 02/19/20 04:50 Band Neutrophils % 1 % (0-10) 02/19/20 04:50 Lymphocytes % (Manual) 11 % (13-43) L 02/19/20 04:50 Monocytes % (Manual) 4 % (4-9) 02/19/20 04:50 Eosinophils % (Manual) 1 % (0-6) 02/19/20 04:50 Plt Morphology Comment Normal (NORMAL) 02/19/20 04:50 RBC Morphology Abnormal (NORMAL) A 02/19/20 04:50 Hypochromasia Slight A 02/19/20 04:50 Anisocytosis Slight A 02/19/20 04:50 Microcytosis Slight A 02/18/20 04:40 Sodium 141 mmol/L (136-145) 02/19/20 04:50 Corrected Sodium TNP 02/19/20 04:50 Potassium 3.8 mmol/L (3.5-5.1) 02/19/20 04:50 Chloride 109 mmol/L (98-107) H 02/19/20 04:50 Carbon Dioxide 25.6 mmol/L (21-32) 02/19/20 04:50 BUN 19 mg/dL (7-18) H 02/19/20 04:50 Creatinine 0.82 mg/dL (0.55-1.02) 02/19/20 04:50 Est GFR (MDRD) Af Amer > 60 (>60) 02/19/20 04:50 Est GFR (MDRD) Non-Af > 60 (>60) 02/19/20 04:50 Glucose 75 mg/dL (65-99) 02/19/20 04:50 Calcium 9.2 mg/dL (8.5-10.1) 02/19/20 04:50 Corrected Calcium 9.8 mg/dL (8.5-10.1) 02/14/20 04:10 Magnesium 1.8 mg/dL (1.7-2.9) 02/19/20 04:50 Iron 5 ug/dL (50-175) L 02/14/20 04:10 Transferrin 211 mg/dL (202-364) 02/14/20 04:10 Ferritin 30 ng/mL (8-252) 02/14/20 04:10 Total Bilirubin 0.10 mg/dL (0.2-1.0) L 02/14/20 04:10 AST 26 Units/L (15-37) 02/14/20 04:10 ALT 16 Units/L (12-78) 02/14/20 04:10 Alkaline Phosphatase 109 Units/L (46-116) 02/14/20 04:10 C-Reactive Protein 55.20 mg/L (0-3.0) H 02/17/20 04:20 Total Protein 5.8 g/dL (6.4-8.2) L 02/14/20 04:10 Albumin 2.4 g/dL (3.4-5.0) L 02/14/20 04:10 Globulin 3.4 g/dL (2.5-4.5) 02/14/20 04:10 Albumin/Globulin Ratio 0.7 Ratio (1.1-2.1) L 02/14/20 04:10 Vitamin B12 617 pg/mL (193-986) 02/14/20 04:10 Folate 13.9 ng/mL (>8.6) 02/14/20 04:10 Specimen Type Clean catch urine 02/14/20 22:47 Urine Color Straw (YELLOW) 02/14/20 22:47 Urine Appearance Clear (CLEAR) 02/14/20 22:47 Urine pH 5.0 (5.0 - 8.0) 02/14/20 22:47 Ur Specific [place] 1.010 (1.000-1.030) 02/14/20 22:47 Urine Protein 2+ (NEGATIVE) 02/14/20 22:47 Urine Glucose (UA) Negative (NEGATIVE) 02/14/20 22:47 Urine Ketones Negative (NEGATIVE) 02/14/20 22:47 Urine Occult Blood 2+ (NEGATIVE) 02/14/20 22:47 Urine Nitrite Negative (NEGATIVE) 02/14/20 22:47 Urine Bilirubin Negative (NEGATIVE) 02/14/20 22:47 Urine Urobilinogen Normal (NORMAL) 02/14/20 22:47 Ur Leukocyte Esterase 3+ (NEGATIVE) 02/14/20 22:47 Urine RBC 0-2 /HPF (0-3) 02/14/20 22:47 Urine WBC 3-5 /HPF (0-5) 02/14/20 22:47 Ur Squamous Epith Cells Few /HPF (NEGATIVE) 02/14/20 22:47 Urine Bacteria Trace /HPF (NEGATIVE) 02/14/20 22:47 Ur Culture Indicated? No/not indicated 02/14/20 22:47 Stool Description 25g dark brown soft 02/15/20 18:47 Stl Occult Blood (IFOB) Positive (NEGATIVE) A 02/15/20 18:47 Stool for White Cells Negative (NEGATIVE) 02/19/20 08:35 Stl C. diff Tox B Gene Negative (NEGATIVE) 02/19/20 08:35 Stl C. diff [id number] Negative (NEGATIVE) 02/19/20 08:35 SARS-CoV-2 (PCR) Negative (NEGATIVE) 02/14/20 00:29 Miscellaneous Test Covid 19 02/14/20 07:57 Blood Type O POSITIVE 02/14/20 05:42 Antibody Screen Negative 02/14/20 05:42 Crossmatch See Detail 02/14/20 05:42 Reason For Visit: BIBASILAR PULMONARY INFILTRATES,SEVERE ANEMIA, Discharge Date Discharge Date: 02/19/20 Discharge Diagnosis All Active Problems (Updated 02/18/20 @ 11:55 by Michelle Singh) Diarrhea (Acute) Rheumatoid arthritis (Acute) HTN (hypertension) (Acute) Acute on chronic renal failure (Acute) CAD (coronary artery disease) (Acute) Suspected COVID-19 virus infection (Acute) Gastritis (Acute) Pulmonary infiltrate in left lung on CXR (Acute) Severe anemia (Acute) Chronic kidney disease (CKD) (Acute) Rheumatoid arthritis flare (Acute) Microcytic anemia (Acute) Plan of Treatment: Continue with present treatment and follow up plan. Pt is to keep follow up appointment as instructed and take medications as ordered. Discharge Medications Discharge Medications: Tetanus Vaccines and Toxoid Allergy (Verified 12/04/19 20:57) CONTINUE taking the following medications Belsomra 15 mg PO DAILY 02/13/20 [History] Calcium 600 + D(3) 1 cap PO DAILY 02/13/20 [History] amlodipine 5 mg PO DAILY 02/13/20 [History] aspirin [Aspir-81] 81 mg PO DAILY 02/13/20 [History] atorvastatin 20 mg PO DAILY 02/13/20 [History] cholecalciferol (vitamin D3) [Vitamin D3] 125 mcg PO DAILY 02/13/20 [History] clopidogrel 75 mg PO DAILY 02/13/20 [History] furosemide 20 mg PO DAILY 02/13/20 [History] gabapentin 100 mg PO QID 02/13/20 [History] hydrocodone-acetaminophen 1 tab PO BID PRN 02/13/20 [History] levothyroxine 88 mcg PO DAILY 02/13/20 [History] lisinopril 40 mg PO BID 02/13/20 [History] metoprolol tartrate 25 mg PO BID 02/13/20 [History] ropinirole 0.5 mg PO HS 02/13/20 [History] spironolactone 50 mg PO DAILY 02/13/20 [History] vitamin E 1,000 unit PO DAILY 02/13/20 [History] New Prescriptions albuterol sulfate 2 puff IN Q6H PRN #6.7 g 02/19/20 [Rx] albuterol sulfate 2.5 mg IN TID PRN 10 Days #90 ml 02/19/20 [Rx] ferrous gluconate 324 mg PO BIDWM 30 Days #60 tab 02/19/20 [Rx] levofloxacin 750 mg PO DAILY 7 Days #7 tab 02/19/20 [Rx] nebulizers #1 ea 02/19/20 [Rx] prednisone 20 mg PO DAILY 5 Days #5 tab 02/19/20 [Rx] Follow up and Referral Follow Up: 3 Days (PCP) Discharge Disposition Discharge Disposition: Home Discharge Condition: Stable
== END 2020-02-19 14:25 | disposition home or self-care (01) | DRG 684 ==
LOC: ER 18:31 → OBS 02-14 02:07 → MED/SURG 02-14 07:48
PROVIDERS: ADMIT Internal Medicine; ATTEND Internal Medicine
DX: R26.81 Unsteadiness on feet; Z20.828 Contact with and (suspected) exposure to other viral communicable diseases; N18.3 Chronic kidney disease, stage 3 (moderate); D64.9 Anemia, unspecified; M06.9 Rheumatoid arthritis, unspecified; N17.9 Acute kidney failure, unspecified; B96.20 Unspecified Escherichia coli [E. coli] as the cause of diseases classified elsewhere; I25.10 Atherosclerotic heart disease of native coronary artery without angina pectoris; R19.7 Diarrhea, unspecified; I12.9 Hypertensive chronic kidney disease with stage 1 through stage 4 chronic kidney disease, or unspecified chronic kidney disease; R91.8 Other nonspecific abnormal finding of lung field; R06.02 Shortness of breath

== ENCOUNTER 2020-04-05 10:44 | Observation (INO) ==
[2020-04-05] MEDS ORDERED: TORADOL 60 MG VIAL IM ONE (11:22)
--- NOTE | 2020-04-05 11:22 | DR.DIZZY ---
HPI Time seen Time Seen by Provider: 04/05/20 11:19 HPI Comment HPI Comment: PATIENT IS 74YR OLD FEMALE IN ER WITH MYALGIA AND ARTHRALGIA AND GENERALIZED WEAKNESS TIMES 3 DAYS. PAIN IS 10/10 GENERALIZED. TOOK STERIOD AND NORCO FOR PAIN WITHOUT RELIEF. DENIES SIMILAR PAIN BEFORE. NO FEVER OR DYSURIA. NAUSEATED BUT NO VOMITING. Complaint Chief Complaint Doctor Comments: GENERALIZED WEAKNESS AND JOINT PAIN TIMES 3 DAYS. Chief Complaint:: PT C/O WEAKNESS AND PAIN. "I THINK MY ARTHRITIS HAS ATTACKED EVERY JPINT IN MY BODY." Self Treatment fo Chief Complaint: NORCO, STEROIDS COVID-19 Coronavirus risk:travel/contact w/high risk person: No Has patient experienced Coronavirus symptoms: No Nurses Notes Reviewed Nurses Notes Review: Yes Source History Provided: Patient and EMS Mode of Arrival Mode of Arrival: EMS Timing Onset of Chief Complaint: 04/02/20 Came on: Suddenly Duration Duration: Constant Duration: Days Location of Weakness Weakness Location: Generalized Context Onset: At rest History of: Anemia Stroke Symptoms: None Severity Severity: Normal activity level Modifying factors Worsens: Other (EXERTION.) Associated signs and symptoms Associated Signs and Symptoms: Weak and Chest Pain PMH PMH Past Medical History: Yes Past Medical History: Anemia, Arthritis, Coronary Artery Disease, Dyslipidemia, Hypertension, Liver Disease, MD and Renal Disease Past Surgical History: Yes Surgical History: Carotid Endarterectomy, Cholecystectomy, Ortho Surgery and Other Family History History of Family Medical Conditions: Yes Family Medical History: Diabetes Mellitus, MD and Coronary Artery Disease Social History Does any household member use tobacco: No Alcohol Use: None Do you use any recreational Drugs:: No Lives With: Family Lives Where: Home Travel Risk Coronavirus risk:travel/contact w/high risk person: No Has patient experienced Coronavirus symptoms: No Infectious screening In the last 2 months have you had wt loss of >10#?: NO Have you had fever, night sweats or hemotysis?: No Have you traveled outside the country in the last 6 months?: No Isolation: Standard ROS Review of Systems Constitutional: See HPI, Weakness and Fatigue; negative Fever Eyes: No Symptoms Reported and See HPI ENTM: No Symptoms Reported and See HPI; negative Nose Discharge and Nose Congestion Respiratoy: See HPI and Short of Breath; negative Moist Cough and Wheezing Cardiovascular: See HPI and Chest Pain; negative Edema and Palpitations Gastrointestinal/Abdominal: See HPI and Nausea; negative Abdominal Pain, Diarrhea and Vomiting Genitourinary: No Symptoms Reported and See HPI; negative Dysuria, Frequency and Hematuria Neurological: See HPI and Weakness; negative Headache and Dizziness Musculoskeletal: See HPI, Joint Pain and Muscle Pain; negative Back Pain Integumentary: No Symptoms Reported and See HPI; negative Change in Color, Rash and Juandice Hematologic/Lymphatic: No Symptoms Reported and See HPI; negative Easy Bruising and Swollen Glands Endocrine: No Symptoms Reported and See HPI; negative Increased Thirst and Increased Urine Psychiatric: No Symptoms Reported and See HPI All Other Systems: Reviewed and Negative PE Vital Signs Vitals: Temperature 98.4 F Pulse Rate 81 Respiratory Rate 18 Blood Pressure [Right Arm] 175/80 Blood Pressure 151/67 O2 Sat by Pulse Oximetry 98 General Limitations: No Limitations General Appearance: Alert and In No Apparent Distress Head Head Exam: Normal Inspection and Atraumatic Eyes Eye exam: Normal Appearance and PERRL; negative Scleral Icterus and Conjunctival Injection Pupils: Regular, Round: Bilateral and Reactive: Bilateral Sclera/Conjunctival: Normal Inspection: Bilateral ENT ENT Exam: Normal Exam, Normal Oropharynx, Normal External Ear Exam and TM's Normal Bilaterally Neck Neck Exam: Normal Inspection, Full ROM and Trachea Midline; negative Tenderness and Lymphadenopathy Chest Chest Inspection: Normal Inspection, Symmetric Chest Wall Rise, Tenderness and Other Respiratory Respiratory Exam: Normal Lung Sounds Bilat; negative Accessory Muscle Use, Chest Wall Tenderness and Respiratory Distress Respiratory Exam: Bilateral: Clear to Auscultation Cardiovascular Cardiovascular Exam: Regular Rate and Normal Rhythm Abdominal Exam Abdominal Exam: Normal Inspection, Normal Bowel Sounds and Soft Rectal Rectal Exam: Deferred Extremeties Extremities Exam: Normal Inspection and Full ROM Back Back Exam: Normal Inspection and Full ROM Neurologic Neurological Exam: Alert, Oriented X3 and CN II-XII Intact; negative Motor Sensory Deficit Patient Oriented To: Person, Place and Time Speech: Fluid Speech Cranial Nerve Exam: EOM Function (II, III, IV, ): Normal, Facial Sensation (V): Normal, Facial Palsy (VII): Normal, Gag reflex (XI): Normal and Tongue Deviation: Normal Motor Strength - LUE: 5/5 Motor Strength - RUE: 5/5 Motor Strength - LLE: 5/5 Motor Strength - RLE: 5/5 Upper Motor Neuron Exam: Babinski Sign: Normal Psychiatric Psychiatric Exam: Normal Affect and Normal Mood Skin Skin Exam: Warm, Dry, Intact and Normal Color MDM Differential Diagnosis Differential Diagnosis: Anemia, Dehydration, Dysrhythmia, Electrolyte disorder, Hypoglycemia, Myocardial infarction and Other (PNEUMONIA, UTI.) COURSE Treatment Treatment: SEE ORDERS. TORADOL 60MG IM AND MORPHIN 2MG IV AND ZOFRAN 4MG IV IN ER. Reevaluation 1st: Improved (PAIN IMPROVING.) Consultation Consultation Comments: DISCUSS PATIENT WITH DR. HENRY. SHE WILL ADMIT PATIENT. Education/Counseling Education/Counseling: Patient Educated On: Diagnosis and Needs for Follow Up ROR Labs Reviewed Laboratory Results Reviewed?: Yes Result Diagrams: 04/10/20 05:57 04/10/20 05:57 Laboratory: WBC 11.9 X10^3/uL (3.6-10.0) H 04/05/20 11:35 RBC 3.22 X10^6/uL (3.5-5.4) L 04/05/20 11:35 Hgb 8.8 g/dL (12.0-16.0) L 04/05/20 11:35 Hct 27.7 % (36.0-47.0) L 04/05/20 11:35 MCV 86.0 fL (80.0-100.0) 04/05/20 11:35 MCH 27.3 pg (27.0-34.0) 04/05/20 11:35 MCHC 31.8 g/dL (33.0-35.0) L 04/05/20 11:35 RDW 21.9 % (11.6-16.5) H 04/05/20 11:35 Plt Count 396 X10^3/uL (150.0-450.0) 04/05/20 11:35 Plt Count Comment Adequate (ADEQUATE) 04/05/20 11:35 MPV 7.1 fL (7.4-11.0) L 04/05/20 11:35 Neut % (Auto) 85.0 % (42.0-75.0) H 04/05/20 11:35 Lymph % (Auto) 5.8 % (21.0-51.0) L 04/05/20 11:35 [place] % (Auto) 3.4 % (0.0-13.0) 04/05/20 11:35 Eos % (Auto) 5.5 % (0.9-2.9) H 04/05/20 11:35 Baso % (Auto) 0.3 % (0.2-1.0) 04/05/20 11:35 Neut # (Auto) 10.1 x10^3/uL (2.2-4.8) H 04/05/20 11:35 Lymph # (Auto) 0.7 X10^3/uL (1.3-2.9) L 04/05/20 11:35 [place] # (Auto) 0.4 x10^3/uL (0.3-0.8) 04/05/20 11:35 Eos # (Auto) 0.7 x10^3/uL (0.0-0.2) H 04/05/20 11:35 Baso # (Auto) 0.0 X10^3/uL (0.0-0.1) 04/05/20 11:35 Absolute Nucleated RBC 0.0 /100WBC 04/05/20 11:35 Plt Morphology Comment Normal (NORMAL) 04/05/20 11:35 RBC Morphology Abnormal (NORMAL) A 04/05/20 11:35 Anisocytosis 1+ A 04/05/20 11:35 Sodium 134 mmol/L (136-145) L 04/05/20 11:35 Corrected Sodium 134 mmol/L (136-145) L 04/05/20 11:35 Potassium 4.5 mmol/L (3.5-5.1) 04/05/20 11:35 Chloride 102 mmol/L (98-107) 04/05/20 11:35 Carbon Dioxide 15.9 mmol/L (21-32) L 04/05/20 11:35 BUN 61 mg/dL (7-18) H 04/05/20 11:35 Creatinine 3.27 mg/dL (0.55-1.02) H 04/05/20 11:35 Est GFR (MDRD) Af Amer 18 (>60) L 04/05/20 11:35 Est GFR (MDRD) Non-Af 15 (>60) L 04/05/20 11:35 Glucose 117 mg/dL (65-99) H 04/05/20 11:35 Calcium 9.0 mg/dL (8.5-10.1) 04/05/20 11:35 Corrected Calcium 9.8 mg/dL (8.5-10.1) 04/05/20 11:35 Total Bilirubin 0.20 mg/dL (0.2-1.0) 04/05/20 11:35 AST 13 Units/L (15-37) L 04/05/20 11:35 ALT 12 Units/L (12-78) 04/05/20 11:35 Alkaline Phosphatase 111 Units/L (46-116) 04/05/20 11:35 Creatine Kinase 14 Units/L (26-192) L 04/05/20 11:35 CK-MB (CK-2) < 1.0 ng/mL (0-4.0) 04/05/20 11:35 CK/CKMB % Calc 7.1 % (<4) 04/05/20 11:35 Troponin I < 0.02 ng/mL (0-1.5) 04/05/20 11:35 Total Protein 7.3 g/dL (6.4-8.2) 04/05/20 11:35 Albumin 3.0 g/dL (3.4-5.0) L 04/05/20 11:35 Globulin 4.3 g/dL (2.5-4.5) 04/05/20 11:35 Albumin/Globulin Ratio 0.7 Ratio (1.1-2.1) L 04/05/20 11:35 XRAY XRAY Interpreted by: Radiologist (REPORT NOTED AND DISCUSSED WITH PATIENT.) and Self EKG Rate: 103 [place]: Normal Rhythm: ST Block: None Hypertrophy: None ST: Nonsp Opioid Opioid Risk Tool Age (Deng box if 16-45): No History of Preadolescent Sexual Abuse: No Total: 0 Total Score Risk Category: Low Risk Copyright: [facility] predicting aberrant behaviors Diagnosis Discharge Problem: Acute dehydration, Metabolic acidosis Acute on chronic kidney failure Qualifiers: Acute renal failure type: unspecified Chronic kidney disease stage: unspecified stage Qualified Code(s): N17.9 - Acute kidney failure, unspecified Anemia Qualifiers: Anemia type: unspecified type Qualified Code(s): D64.9 - Anemia, unspecified Instructions Instructions: Dehydration, Adult, Lqri-zq-Dsak Gastritis, Adult, Ztqm-xs-Rnzx Preventing Iron Deficiency Anemia, Adult Rehydration, Adult Rheumatoid Arthritis, Bsjm-wu-Agcb Weakness, Qzjc-og-Aowc Upper Endoscopy, Care After How to Take Your Blood Pressure, Yufp-fm-Ccvb Chronic Kidney Disease, Adult, Fddu-au-Xchg Hypertension, Flnb-ap-Ksmp Forms: Excuse From Work or School Precautions for COVID19 Patient Portal Social Distancing
[2020-04-05] MEDS ORDERED: TORADOL 60 MG VIAL ONE (11:35)
[2020-04-05 11:44] LABS: BASOPHILS % (AUTO) 0.3 % (0.2-1.0); EOSINOPHILS # (AUTO) 0.7 x10^3/uL (0.0-0.2); EOSINOPHILS % (AUTO) 5.5 % (0.9-2.9); HEMATOCRIT 27.7 % (36.0-47.0); HEMOGLOBIN 8.8 g/dL (12.0-16.0); LYMPHOCYTES # (AUTO) 0.7 X10^3/uL (1.3-2.9); LYMPHOCYTES % (AUTO) 5.8 % (21.0-51.0); MEAN CORPUSCULAR HEMOGLOBIN 27.3 pg (27.0-34.0); MEAN CORPUSCULAR HGB CONC 31.8 g/dL (33.0-35.0); MEAN PLATELET VOLUME 7.1 fL (7.4-11.0); MONOCYTES # (AUTO) 0.4 x10^3/uL (0.3-0.8); MONOCYTES % (AUTO) 3.4 % (0.0-13.0); NEUTROPHILS # (AUTO) 10.1 x10^3/uL (2.2-4.8); PLATELET COUNT 396 X10^3/uL (150.0-450.0); RED BLOOD COUNT 3.22 X10^6/uL (3.5-5.4); RED CELL DISTRIBUTION WIDTH 21.9 % (11.6-16.5); WHITE BLOOD COUNT 11.9 X10^3/uL (3.6-10.0)
--- NOTE | 2020-04-05 11:56 | RAD ---
HISTORYSOBSTUDYCHEST, 1 VIEWCOMPARISONPortable chest March 31, 2020.FINDINGSThe trachea is midline.. Surgical clips are seen in the left neck. The cardiac silhouette is unremarkable . The lungs are clear without focal infiltrate or effusion. The bony thorax is unremarkable.IMPRESSIONNo acute cardiopulmonary disease and no change from recent film March 31, 2020..Electronically signed by: JUAN CARLOS MILAN (Apr 05, 2020 11:54:28)
[2020-04-05 12:01] LABS: ANISOCYTOSIS 1+; PLATELET MORPHOLOGY COMMENT NORMAL (NORMAL)
[2020-04-05 12:02] LABS: BLOOD UREA NITROGEN 61 mg/dL (7-18); CARBON DIOXIDE 15.9 mmol/L (21-32); CHLORIDE 102 mmol/L (98-107); COR NA(FOR HYPERGLY) 134 mmol/L (136-145); CREATININE 3.27 mg/dL (0.55-1.02); SODIUM 134 mmol/L (136-145); TROPONIN I < 0.02 ng/mL (0-1.5); eGFR NON BLACK RACES 15 (>60)
[2020-04-05 12:06] LABS: ALANINE AMINOTRANSFERASE 12 Units/L (12-78); ALKALINE PHOSPHATASE 111 Units/L (46-116); ASPARTATE AMINO TRANSFERASE 13 Units/L (15-37); CKMB % 7.1 % (<4); COR CA(FOR HYPOALB) 9.8 mg/dL (8.5-10.1); CREATINE KINASE 14 Units/L (26-192); CREATINE KINASE MB < 1.0 ng/mL (0-4.0); TOTAL PROTEIN 7.3 g/dL (6.4-8.2)
[2020-04-05] MEDS ORDERED: NS 1000 ML 1,000 ML ONE (12:12)
[2020-04-05] MEDS: NS 1000 ML 1,000 ML IV SCH ×4 (12:25→23:25)
[2020-04-05] MEDS ORDERED: ZOFRAN INJ 4 MG VIAL ONE (13:31)
[2020-04-05] MEDS ORDERED: MORPHINE SULFATE INJ 2 MG INJ ONE (13:31)
[2020-04-05] MEDS ORDERED: MORPHINE SULFATE INJ 2 MG INJ IVP ONE (13:35)
[2020-04-05] MEDS ORDERED: ZOFRAN INJ 4 MG VIAL IVP ONE (13:36)
[2020-04-05 15:30] VITALS: BMI 20.5
[2020-04-05] MEDS ORDERED: VENTOLIN or PROAIR HFA IN PRN (16:01)
[2020-04-05] MEDS: HEMOCYTE-PLUS PO SCH ×2 (16:29→21:00)
[2020-04-05 18:24] LABS: BILIRUBIN,URINE NEGATIVE (NEGATIVE); BLOOD/HEMOGLOBIN,URINE NEGATIVE (NEGATIVE); GLUCOSE, URINE NEGATIVE (NEGATIVE); KETONES,URINE NEGATIVE (NEGATIVE); LEUKOCYTE ESTERASE ,URINE 2+ (NEGATIVE); NITRITES,URINE NEGATIVE (NEGATIVE); PROTEIN,URINE 2+ (NEGATIVE); UROBILINOGEN,URINE NORMAL (NORMAL)
[2020-04-05 18:36] LABS: APPEARANCE,URINE CLEAR (CLEAR); COLOR,URINE YELLOW (YELLOW)
[2020-04-05 18:37] LABS: BACTERIA,URINE NEGATIVE /HPF (NEGATIVE); RBC,URINE NONE SEEN /HPF (0-3); SQUAMOUS EPITHELIAL CELL,UR RARE /HPF (NEGATIVE)
[2020-04-05] MEDS ORDERED: LOPRESSOR TAB 25 MG ONE (19:32)
[2020-04-05] MEDS ORDERED: REQUIP PO ONE (19:32)
[2020-04-05] MEDS ORDERED: REMERON ONE (19:32)
[2020-04-05] MEDS: LOPRESSOR TAB 25 MG PO SCH (20:50)
[2020-04-05] MEDS: REMERON PO SCH (20:52)
[2020-04-05] MEDS: REQUIP PO SCH (20:53)
[2020-04-06] MEDS: NS 1000 ML 1,000 ML IV SCH ×3 (06:09→20:40)
[2020-04-06] MEDS: HEMOCYTE-PLUS PO SCH ×3 (06:10→21:56)
[2020-04-06 06:19] LABS: BASOPHILS % (AUTO) 0.5 % (0.2-1.0); EOSINOPHILS # (AUTO) 0.7 x10^3/uL (0.0-0.2); HEMATOCRIT 26.1 % (36.0-47.0); HEMOGLOBIN 8.4 g/dL (12.0-16.0); LYMPHOCYTES # (AUTO) 0.8 X10^3/uL (1.3-2.9); LYMPHOCYTES % (AUTO) 9.9 % (21.0-51.0); MEAN CORPUSCULAR HGB CONC 32.4 g/dL (33.0-35.0); MEAN CORPUSCULAR VOLUME 86.4 fL (80.0-100.0); MEAN PLATELET VOLUME 7.1 fL (7.4-11.0); MONOCYTES # (AUTO) 0.4 x10^3/uL (0.3-0.8); MONOCYTES % (AUTO) 4.5 % (0.0-13.0); NEUTROPHILS # (AUTO) 5.9 x10^3/uL (2.2-4.8); NEUTROPHILS % (AUTO) 76.1 % (42.0-75.0); PLATELET COUNT 346 X10^3/uL (150.0-450.0); RED BLOOD COUNT 3.02 X10^6/uL (3.5-5.4); RED CELL DISTRIBUTION WIDTH 21.5 % (11.6-16.5); WHITE BLOOD COUNT 7.8 X10^3/uL (3.6-10.0)
[2020-04-06 06:37] LABS: ALANINE AMINOTRANSFERASE 11 Units/L (12-78); ALBUMIN 2.5 g/dL (3.4-5.0); ALKALINE PHOSPHATASE 101 Units/L (46-116); ASPARTATE AMINO TRANSFERASE 16 Units/L (15-37); BLOOD UREA NITROGEN 39 mg/dL (7-18); CALCIUM 8.7 mg/dL (8.5-10.1); CARBON DIOXIDE 16.5 mmol/L (21-32); CHLORIDE 112 mmol/L (98-107); COR CA(FOR HYPOALB) 9.9 mg/dL (8.5-10.1); CREATININE 1.65 mg/dL (0.55-1.02); SODIUM 142 mmol/L (136-145); TOTAL PROTEIN 6.5 g/dL (6.4-8.2); eGFR NON BLACK RACES 32 (>60)
[2020-04-06 07:06] LABS: ANISOCYTOSIS 1+; PLATELET MORPHOLOGY COMMENT NORMAL (NORMAL)
[2020-04-06] MEDS ORDERED: LASIX PO SCH (09:00)
[2020-04-06] MEDS: ASPIRIN EC 81 MG PO SCH (09:14)
[2020-04-06] MEDS: CITRACAL + VITAMIN D PO SCH (09:16)
[2020-04-06] MEDS: LOPRESSOR TAB 25 MG PO SCH ×2 (09:16→20:40)
[2020-04-06] MEDS: NEURONTIN CAP 100 MG PO SCH (09:17)
[2020-04-06] MEDS: PROTONIX TAB 40 MG PO SCH (09:17)
[2020-04-06] MEDS: SYNTHROID 88 mcg TAB PO SCH (09:18)
[2020-04-06] MEDS: VITAMIN D3 125 mcg (5,000 UNITS) PO SCH (09:18)
--- NOTE | 2020-04-06 09:38 | DR.H&P ---
H&P History & Physical for Day of: H&P Date: 04/06/20 Chief Complaint Chief Complaint: dizziness, worsening joint pain Allergies Allergies Allergy/AdvReac Type Severity Reaction Status Date / Time Tetanus Vaccines and Toxoid Allergy Verified 03/31/20 07:36 History of Present Illness History of Present Illness: Ms. Carroll is a 74y/o female with PMH of Severe rheu matoid arthritis, CAD, HTN, Cirrhosis presented with worsening joint pain, weakness and dizziness. Patient had been in the ED last week for N/V/D and abdominal pain, negative work-up. She was then seen in clinic the following day and had been feeling better. She states on Saturday she went to see her [employer] Operator and he started her on Humira. She states her pain continued to get worse and she has had decreased appetite so she came back to the ED. She states she also has sore throat. Denies fever or chills. She states she is hurting all over and it's never been this bad. Denies sick contact at home or known exposure. She states her vomiting and diarrhea has improved. She has some lose stools but not how it was before. ER work-up - CXR: negative for acute process - Labs: Hgb: 8.8 BUN/Cr: 61/3.27 CO2: 15.9 UA negative for infection Patient was started on IVF. This morning patient states she feels slightly better. She still has sore throat. Her renal function has improved. Plan: will check for Strep and COVID, continue hydration. Monitor Hgb closely and AM labs. Hold lasix and other nephrotoxic medications. Patient did have a neg covid test recently on 03/31/20. Past Medical History Past Medical History: Anemia, Arthritis, Coronary Artery Disease, Dyslipidemia, Hypertension, Liver Disease, ID and Renal Disease Past Surgical History Surgical History: Carotid Endarterectomy, Cholecystectomy, Ortho Surgery and Other Family History Family Medical History: Diabetes Mellitus, ID and Coronary Artery Disease Social History Does any household member use tobacco: No Alcohol Use: None Drug Use: None Medications Home Medications: Tetanus Vaccines and Toxoid Allergy (Verified 03/31/20 07:36) CONTINUE taking the following medications ferrous sulfate 325 mg PO TID 04/05/20 [History] mirtazapine 7.5 mg PO QHS 04/05/20 [History] pantoprazole [Protonix] 40 mg PO DAILY 04/05/20 [History] Labs Result Diagrams: 04/06/20 05:20 04/06/20 05:20 Labs: Laboratory WBC 7.8 X10^3/uL (3.6-10.0) 04/06/20 05:20 RBC 3.02 X10^6/uL (3.5-5.4) L 04/06/20 05:20 Hgb 8.4 g/dL (12.0-16.0) L 04/06/20 05:20 Hct 26.1 % (36.0-47.0) L 04/06/20 05:20 MCV 86.4 fL (80.0-100.0) 04/06/20 05:20 MCH 28.0 pg (27.0-34.0) 04/06/20 05:20 MCHC 32.4 g/dL (33.0-35.0) L 04/06/20 05:20 RDW 21.5 % (11.6-16.5) H 04/06/20 05:20 Plt Count 346 X10^3/uL (150.0-450.0) 04/06/20 05:20 Plt Count Comment Adequate (ADEQUATE) 04/06/20 05:20 MPV 7.1 fL (7.4-11.0) L 04/06/20 05:20 Neut % (Auto) 76.1 % (42.0-75.0) H 04/06/20 05:20 Lymph % (Auto) 9.9 % (21.0-51.0) L 04/06/20 05:20 [place] % (Auto) 4.5 % (0.0-13.0) 04/06/20 05:20 Eos % (Auto) 9.0 % (0.9-2.9) H 04/06/20 05:20 Baso % (Auto) 0.5 % (0.2-1.0) 04/06/20 05:20 Neut # (Auto) 5.9 x10^3/uL (2.2-4.8) H 04/06/20 05:20 Lymph # (Auto) 0.8 X10^3/uL (1.3-2.9) L 04/06/20 05:20 [place] # (Auto) 0.4 x10^3/uL (0.3-0.8) 04/06/20 05:20 Eos # (Auto) 0.7 x10^3/uL (0.0-0.2) H 04/06/20 05:20 Baso # (Auto) 0.0 X10^3/uL (0.0-0.1) 04/06/20 05:20 Absolute Nucleated RBC 0.0 /100WBC 04/06/20 05:20 Plt Morphology Comment Normal (NORMAL) 04/06/20 05:20 RBC Morphology Abnormal (NORMAL) A 04/06/20 05:20 Anisocytosis 1+ A 04/06/20 05:20 PT 14.4 SECONDS (11.8-14.3) 04/06/20 05:20 INR Target Range - 04/06/20 05:20 INR 1.15 (0.8-1.3) 04/06/20 05:20 APTT 37.2 SECONDS (22.9-36.5) H 04/06/20 05:20 PTT Comment - 04/06/20 05:20 Sodium 142 mmol/L (136-145) 04/06/20 05:20 Corrected Sodium TNP 04/06/20 05:20 Potassium 4.6 mmol/L (3.5-5.1) 04/06/20 05:20 Chloride 112 mmol/L (98-107) H 04/06/20 05:20 Carbon Dioxide 16.5 mmol/L (21-32) L 04/06/20 05:20 BUN 39 mg/dL (7-18) H 04/06/20 05:20 Creatinine 1.65 mg/dL (0.55-1.02) H 04/06/20 05:20 Est GFR (MDRD) Af Amer 39 (>60) L 04/06/20 05:20 Est GFR (MDRD) Non-Af 32 (>60) L 04/06/20 05:20 Glucose 80 mg/dL (65-99) 04/06/20 05:20 Calcium 8.7 mg/dL (8.5-10.1) 04/06/20 05:20 Corrected Calcium 9.9 mg/dL (8.5-10.1) 04/06/20 05:20 Magnesium 2.0 mg/dL (1.7-2.9) 04/06/20 05:20 Total Bilirubin 0.20 mg/dL (0.2-1.0) 04/06/20 05:20 AST 16 Units/L (15-37) 04/06/20 05:20 ALT 11 Units/L (12-78) L 04/06/20 05:20 Alkaline Phosphatase 101 Units/L (46-116) 04/06/20 05:20 Creatine Kinase 14 Units/L (26-192) L 04/05/20 11:35 CK-MB (CK-2) < 1.0 ng/mL (0-4.0) 04/05/20 11:35 CK/CKMB % Calc 7.1 % (<4) 04/05/20 11:35 Troponin I < 0.02 ng/mL (0-1.5) 04/05/20 11:35 Total Protein 6.5 g/dL (6.4-8.2) 04/06/20 05:20 Albumin 2.5 g/dL (3.4-5.0) L 04/06/20 05:20 Globulin 4.0 g/dL (2.5-4.5) 04/06/20 05:20 Albumin/Globulin Ratio 0.6 Ratio (1.1-2.1) L 04/06/20 05:20 Specimen Type Clean catch urine 04/05/20 18:05 Urine Color Yellow (YELLOW) 04/05/20 18:05 Urine Appearance Clear (CLEAR) 04/05/20 18:05 Urine pH 5.0 (5.0 - 8.0) 04/05/20 18:05 Ur Specific [place] 1.010 (1.000-1.030) 04/05/20 18:05 Urine Protein 2+ (NEGATIVE) 04/05/20 18:05 Urine Glucose (UA) Negative (NEGATIVE) 04/05/20 18:05 Urine Ketones Negative (NEGATIVE) 04/05/20 18:05 Urine Occult Blood Negative (NEGATIVE) 04/05/20 18:05 Urine Nitrite Negative (NEGATIVE) 04/05/20 18:05 Urine Bilirubin Negative (NEGATIVE) 04/05/20 18:05 Urine Urobilinogen Normal (NORMAL) 04/05/20 18:05 Ur Leukocyte Esterase 2+ (NEGATIVE) 04/05/20 18:05 Urine RBC None seen /HPF (0-3) 04/05/20 18:05 Urine WBC 3-5 /HPF (0-5) 04/05/20 18:05 Ur Squamous Epith Cells Rare /HPF (NEGATIVE) 04/05/20 18:05 Urine Bacteria Negative /HPF (NEGATIVE) 04/05/20 18:05 Ur Culture Indicated? No/not indicated 04/05/20 18:05 Review of Systems Constitutional: Weakness and Malaise Eyes: No Symptoms Reported ENT: No Symptoms Reported Respiratory: No Symptoms Reported Cardiovascular: No Symptoms Reported Gastrointestinal: Nausea, Vomiting and Diarrhea Genitourinary: No Symptoms Reported Musculoskeletal: Shoulder Pain, Arm Pain, Back Pain and Hand Pain Skin: No Symptoms Reported Neurological: No Symptoms Reported Physical Exam Vital Signs: Temperature 98.4 F Pulse Rate [Right Brachial] 93 Pulse Rate 86 Respiratory Rate 14 Blood Pressure [Right Arm] 187/79 Blood Pressure 155/67 O2 Sat by Pulse Oximetry 96 Oriented: Normal Eyes: Normal Throat: Red and Dry Respiratory: Diminished Throughout Cardiovascular: Normal and Tachycardia Auscultation: Bowel Sounds: Normal Palpation: Normal Tenderness: Normal Skin: Normal and Decreased Turgur Musculoskeletal: Right, Left and Hand (b/l hand deformity due to RA ) Psychiatric: Normal Mood Description: Calm Affect: Normal Speech Pattern: Clear and Appropriate Assessment/Plan (1) Dehydration: Status: Acute (2) Acute on chronic renal failure: Qualifiers: Acute renal failure type: unspecified Chronic kidney disease stage: unspecified stage Qualified Code(s): N17.9 - Acute kidney failure, unspecified; N18.9 - Chronic kidney disease, unspecified Status: Acute (3) Rheumatoid arthritis: Qualifiers: Rheumatoid arthritis location: multiple sites Rheumatoid factor presence: unspecified presence Qualified Code(s): M06.9 - Rheumatoid arthritis, unspecified Status: Acute (4) Pharyngitis: Qualifiers: Pharyngitis/tonsillitis etiology: unspecified etiology Qualified Code(s): J02.9 - Acute pharyngitis, unspecified Status: Acute (5) Severe anemia: Status: Acute (6) Iron deficiency anemia: Qualifiers: Iron deficiency anemia type: inadequate dietary iron intake Qualified Code(s): D50.8 - Other iron deficiency anemias Status: Acute (7) Generalized weakness: Status: Acute Review H&P Reviewed: Yes Patient was examined?: Yes
[2020-04-06] MEDS: ZITHROMAX INJ 500 MG VIAL 250 MG in NS 250 ML IV 250 ML IV SCH (12:51)
[2020-04-06 13:17] LABS: COVID 19 PCR NEGATIVE (NEGATIVE); STREP A BY PCR NOT DETECTED (NOT DETECT)
[2020-04-06] MEDS: PREDNISONE TAB 20 MG PO SCH (14:40)
[2020-04-06] MEDS: REMERON PO SCH (20:40)
[2020-04-06] MEDS: REQUIP PO SCH (20:40)
[2020-04-07] MEDS: NS 1000 ML 1,000 ML IV SCH ×2 (04:49→05:34)
[2020-04-07] MEDS: HEMOCYTE-PLUS PO SCH ×3 (05:34→22:15)
[2020-04-07 06:26] LABS: BASOPHILS % (AUTO) 0.3 % (0.2-1.0); HEMOGLOBIN 7.1 g/dL (12.0-16.0); LYMPHOCYTES # (AUTO) 0.6 X10^3/uL (1.3-2.9); LYMPHOCYTES % (AUTO) 11.9 % (21.0-51.0); MEAN CORPUSCULAR HEMOGLOBIN 27.7 pg (27.0-34.0); MEAN CORPUSCULAR HGB CONC 32.4 g/dL (33.0-35.0); MEAN CORPUSCULAR VOLUME 85.4 fL (80.0-100.0); MONOCYTES # (AUTO) 0.2 x10^3/uL (0.3-0.8); MONOCYTES % (AUTO) 4.1 % (0.0-13.0); NEUTROPHILS % (AUTO) 83.7 % (42.0-75.0); PLATELET COUNT 288 X10^3/uL (150.0-450.0); RED BLOOD COUNT 2.58 X10^6/uL (3.5-5.4); WHITE BLOOD COUNT 4.8 X10^3/uL (3.6-10.0)
[2020-04-07 06:35] LABS: BLOOD UREA NITROGEN 22 mg/dL (7-18); CALCIUM 9.1 mg/dL (8.5-10.1); CARBON DIOXIDE 18.8 mmol/L (21-32); SODIUM 146 mmol/L (136-145); eGFR NON BLACK RACES 57 (>60)
[2020-04-07 06:45] LABS: CHLORIDE 115 mmol/L (98-107)
[2020-04-07 07:35] LABS: ANISOCYTOSIS 1+; HYPOCHROMASIA 1+; PLATELET MORPHOLOGY COMMENT NORMAL (NORMAL)
[2020-04-07] MEDS ORDERED: CHLORASEPTIC SPRAY MT PRN (08:23)
[2020-04-07] MEDS ORDERED: MAGIC MOUTHWASH MT PRN (08:23)
[2020-04-07] MEDS ORDERED: NS 500 ML IV 500 ML IV ONE (08:24)
[2020-04-07] MEDS: CITRACAL + VITAMIN D PO SCH (08:43)
[2020-04-07] MEDS: ASPIRIN EC 81 MG PO SCH (08:43)
[2020-04-07] MEDS: PREDNISONE TAB 20 MG PO SCH (08:44)
[2020-04-07] MEDS: PROTONIX TAB 40 MG PO SCH (08:44)
[2020-04-07] MEDS: NEURONTIN CAP 100 MG PO SCH (08:44)
[2020-04-07] MEDS: LOPRESSOR TAB 25 MG PO SCH ×2 (08:44→21:32)
[2020-04-07] MEDS: VITAMIN D3 125 mcg (5,000 UNITS) PO SCH (08:45)
[2020-04-07] MEDS: SYNTHROID 88 mcg TAB PO SCH (08:45)
[2020-04-07] MEDS: ZITHROMAX INJ 500 MG VIAL 250 MG in NS 250 ML IV 250 ML IV SCH (08:45)
--- NOTE | 2020-04-07 09:21 | PCM.PROG ---
Progress Note Progress Note for Day of Date of Exam: 04/07/20 Subjective Subjective: Patient seen at bedside, no acute overnight events. She states her throat still hurts, not able to swallow due to discomfort. She had 2 loose BM's yesterday, no nausea or vomiting. Denies fever or chills. She states her arthritis pain is slightly better. Labs: Hgb 7.1 BUN/Cr: 22/ Na: 146 Cl 115 Covid (-) Strep (-) Plan: continue azithromycin for viral pharyngitis, continue prednisone for RA flare. Will add morphine prn for breakthrough pain as patient stated [place] is not helping as much. Add nystatin swish/swallow, magic mouthwash, change to soft diet and add ensure. Stop IVF. Will transfuse 2 units of PRBCs. Monitor AM labs. Past Medical Family Social History Past Med/Fam/Surg Hx: No changes since H&P Allergies: Allergies Tetanus Vaccines and Toxoid Allergy (Verified 03/31/20 07:36) Review of Systems ROS: No change since H&P Vital Signs and I&O's Vital Signs: Temperature 98.5 F Pulse Rate [Right Brachial] 83 Pulse Rate 86 Respiratory Rate 18 Blood Pressure [Right Arm] 170/74 Blood Pressure 155/67 O2 Sat by Pulse Oximetry 100 Intake and Output: Intake & Output 04/04/20 04/05/20 04/06/20 04/07/20 23:59 23:59 23:59 23:59 Intake Total 1365 / 1365 3330 / 3330 1000 / 1000 Output Total 500 / 500 2650 / 2650 1100 / 1100 Balance 865 / 865 680 / 680 -100 / -100 Physical Exam Oriented: Normal Eyes: Normal Throat: Red and Dry Respiratory: Normal Cardiovascular: Normal Auscultation: Bowel Sounds: Normal Tenderness: Normal Skin: Normal and Decreased Turgur Musculoskeletal: Right, Left, Hand (b/l hand deformity due to RA ) and Back:Paraspinous Psychiatric: Normal Mood Description: Calm Affect: Normal Speech Pattern: Clear and Appropriate Laboratory and Diagnostics Result Diagrams: 04/07/20 05:35 04/07/20 05:35 Labs: Laboratory WBC 4.8 X10^3/uL (3.6-10.0) 04/07/20 05:35 RBC 2.58 X10^6/uL (3.5-5.4) L 04/07/20 05:35 Hgb 7.1 g/dL (12.0-16.0) L 04/07/20 05:35 Hct 22.0 % (36.0-47.0) L 04/07/20 05:35 MCV 85.4 fL (80.0-100.0) 04/07/20 05:35 MCH 27.7 pg (27.0-34.0) 04/07/20 05:35 MCHC 32.4 g/dL (33.0-35.0) L 04/07/20 05:35 RDW 21.0 % (11.6-16.5) H 04/07/20 05:35 Plt Count 288 X10^3/uL (150.0-450.0) 04/07/20 05:35 Plt Count Comment Adequate (ADEQUATE) 04/07/20 05:35 MPV 7.0 fL (7.4-11.0) L 04/07/20 05:35 Neut % (Auto) 83.7 % (42.0-75.0) H 04/07/20 05:35 Lymph % (Auto) 11.9 % (21.0-51.0) L 04/07/20 05:35 [place] % (Auto) 4.1 % (0.0-13.0) 04/07/20 05:35 Eos % (Auto) 0.0 % (0.9-2.9) L 04/07/20 05:35 Baso % (Auto) 0.3 % (0.2-1.0) 04/07/20 05:35 Neut # (Auto) 4.0 x10^3/uL (2.2-4.8) 04/07/20 05:35 Lymph # (Auto) 0.6 X10^3/uL (1.3-2.9) L 04/07/20 05:35 [place] # (Auto) 0.2 x10^3/uL (0.3-0.8) L 04/07/20 05:35 Eos # (Auto) 0.0 x10^3/uL (0.0-0.2) 04/07/20 05:35 Baso # (Auto) 0.0 X10^3/uL (0.0-0.1) 04/07/20 05:35 Absolute Nucleated RBC 0.1 /100WBC 04/07/20 05:35 Plt Morphology Comment Normal (NORMAL) 04/07/20 05:35 RBC Morphology Abnormal (NORMAL) A 04/07/20 05:35 Hypochromasia 1+ A 04/07/20 05:35 Anisocytosis 1+ A 04/07/20 05:35 PT 14.4 SECONDS (11.8-14.3) 04/06/20 05:20 INR Target Range - 04/06/20 05:20 INR 1.15 (0.8-1.3) 04/06/20 05:20 APTT 37.2 SECONDS (22.9-36.5) H 04/06/20 05:20 PTT Comment - 04/06/20 05:20 Sodium 146 mmol/L (136-145) H 04/07/20 05:35 Corrected Sodium TNP 04/07/20 05:35 Potassium 4.7 mmol/L (3.5-5.1) 04/07/20 05:35 Chloride 115 mmol/L (98-107) H* 04/07/20 05:35 Carbon Dioxide 18.8 mmol/L (21-32) L 04/07/20 05:35 BUN 22 mg/dL (7-18) H 04/07/20 05:35 Creatinine 1.00 mg/dL (0.55-1.02) 04/07/20 05:35 Est GFR (MDRD) Af Amer > 60 (>60) 04/07/20 05:35 Est GFR (MDRD) Non-Af 57 (>60) L 04/07/20 05:35 Glucose 110 mg/dL (65-99) H 04/07/20 05:35 Calcium 9.1 mg/dL (8.5-10.1) 04/07/20 05:35 Corrected Calcium 9.9 mg/dL (8.5-10.1) 04/06/20 05:20 Magnesium 2.0 mg/dL (1.7-2.9) 04/06/20 05:20 Total Bilirubin 0.20 mg/dL (0.2-1.0) 04/06/20 05:20 AST 16 Units/L (15-37) 04/06/20 05:20 ALT 11 Units/L (12-78) L 04/06/20 05:20 Alkaline Phosphatase 101 Units/L (46-116) 04/06/20 05:20 Creatine Kinase 14 Units/L (26-192) L 04/05/20 11:35 CK-MB (CK-2) < 1.0 ng/mL (0-4.0) 04/05/20 11:35 CK/CKMB % Calc 7.1 % (<4) 04/05/20 11:35 Troponin I < 0.02 ng/mL (0-1.5) 04/05/20 11:35 Total Protein 6.5 g/dL (6.4-8.2) 04/06/20 05:20 Albumin 2.5 g/dL (3.4-5.0) L 04/06/20 05:20 Globulin 4.0 g/dL (2.5-4.5) 04/06/20 05:20 Albumin/Globulin Ratio 0.6 Ratio (1.1-2.1) L 04/06/20 05:20 Specimen Type Clean catch urine 04/05/20 18:05 Urine Color Yellow (YELLOW) 04/05/20 18:05 Urine Appearance Clear (CLEAR) 04/05/20 18:05 Urine pH 5.0 (5.0 - 8.0) 04/05/20 18:05 Ur Specific [place] 1.010 (1.000-1.030) 04/05/20 18:05 Urine Protein 2+ (NEGATIVE) 04/05/20 18:05 Urine Glucose (UA) Negative (NEGATIVE) 04/05/20 18:05 Urine Ketones Negative (NEGATIVE) 04/05/20 18:05 Urine Occult Blood Negative (NEGATIVE) 04/05/20 18:05 Urine Nitrite Negative (NEGATIVE) 04/05/20 18:05 Urine Bilirubin Negative (NEGATIVE) 04/05/20 18:05 Urine Urobilinogen Normal (NORMAL) 04/05/20 18:05 Ur Leukocyte Esterase 2+ (NEGATIVE) 04/05/20 18:05 Urine RBC None seen /HPF (0-3) 04/05/20 18:05 Urine WBC 3-5 /HPF (0-5) 04/05/20 18:05 Ur Squamous Epith Cells Rare /HPF (NEGATIVE) 04/05/20 18:05 Urine Bacteria Negative /HPF (NEGATIVE) 04/05/20 18:05 Ur Culture Indicated? No/not indicated 04/05/20 18:05 SARS-CoV-2 (PCR) Negative (NEGATIVE) 04/06/20 08:26 S. pyogenes (TEM-PCR) Not detected (NOT DETECT) 04/06/20 08:26 Plan (1) Dehydration: Status: Acute (2) Acute on chronic renal failure: Status: Acute Qualifiers: Acute renal failure type: unspecified Chronic kidney disease stage: unspecified stage Qualified Code(s): N17.9 - Acute kidney failure, unspecified; N18.9 - Chronic kidney disease, unspecified (3) Rheumatoid arthritis: Status: Acute Qualifiers: Rheumatoid arthritis location: multiple sites Rheumatoid factor presence: unspecified presence Qualified Code(s): M06.9 - Rheumatoid arthritis, unspecified (4) Severe anemia: Status: Acute (5) Iron deficiency anemia: Status: Acute Qualifiers: Iron deficiency anemia type: inadequate dietary iron intake Qualified Code(s): D50.8 - Other iron deficiency anemias (6) Generalized weakness: Status: Acute (7) Viral pharyngitis: Status: Acute
[2020-04-07] MEDS: NYSTATIN SUSP PO SCH ×3 (09:59→21:32)
[2020-04-07] MEDS: MORPHINE SULFATE INJ 2 MG INJ IVP PRN ×3 (10:00→22:55)
[2020-04-07 20:15] LABS: HEMATOCRIT 32.8 % (36.0-47.0); HEMOGLOBIN 10.5 g/dL (12.0-16.0)
[2020-04-07] MEDS: REQUIP PO SCH (21:32)
[2020-04-07] MEDS: REMERON PO SCH (21:32)
[2020-04-08] MEDS: NYSTATIN SUSP PO SCH ×3 (05:27→21:30)
[2020-04-08] MEDS: HEMOCYTE-PLUS PO SCH ×3 (05:28→21:30)
[2020-04-08 06:27] LABS: BASOPHILS # (AUTO) 0.1 X10^3/uL (0.0-0.1); BASOPHILS % (AUTO) 0.9 % (0.2-1.0); BLOOD UREA NITROGEN 22 mg/dL (7-18); CALCIUM 9.4 mg/dL (8.5-10.1); CARBON DIOXIDE 18.7 mmol/L (21-32); CHLORIDE 112 mmol/L (98-107); CREATININE 1.06 mg/dL (0.55-1.02); EOSINOPHILS % (AUTO) 0.1 % (0.9-2.9); HEMATOCRIT 32.1 % (36.0-47.0); HEMOGLOBIN 10.4 g/dL (12.0-16.0); LYMPHOCYTES # (AUTO) 1.5 X10^3/uL (1.3-2.9); LYMPHOCYTES % (AUTO) 13.5 % (21.0-51.0); MEAN CORPUSCULAR HEMOGLOBIN 26.6 pg (27.0-34.0); MEAN CORPUSCULAR HGB CONC 32.3 g/dL (33.0-35.0); MEAN CORPUSCULAR VOLUME 82.3 fL (80.0-100.0); MONOCYTES # (AUTO) 0.6 x10^3/uL (0.3-0.8); MONOCYTES % (AUTO) 5.7 % (0.0-13.0); NEUTROPHILS % (AUTO) 79.8 % (42.0-75.0); PLATELET COUNT 299 X10^3/uL (150.0-450.0); RED CELL DISTRIBUTION WIDTH 22.1 % (11.6-16.5); SODIUM 144 mmol/L (136-145); WHITE BLOOD COUNT 11.3 X10^3/uL (3.6-10.0); eGFR NON BLACK RACES 54 (>60)
[2020-04-08 07:10] LABS: ANISOCYTOSIS 2+; PLATELET MORPHOLOGY COMMENT NORMAL (NORMAL)
[2020-04-08] MEDS ORDERED: ZITHROMAX TAB 250 MG PO ONE (09:10)
[2020-04-08] MEDS: CITRACAL + VITAMIN D PO SCH ×2 (09:38→09:43)
[2020-04-08] MEDS: LOPRESSOR TAB 25 MG PO SCH ×2 (09:38→21:30)
[2020-04-08] MEDS: NORVASC TAB 5 MG PO SCH (09:39)
[2020-04-08] MEDS: NEURONTIN CAP 100 MG PO SCH (09:39)
[2020-04-08] MEDS: PREDNISONE TAB 20 MG PO SCH (09:39)
[2020-04-08] MEDS: VITAMIN D3 125 mcg (5,000 UNITS) PO SCH (09:40)
[2020-04-08] MEDS: ZESTRIL TAB 40 MG PO SCH (09:40)
[2020-04-08] MEDS: SYNTHROID 88 mcg TAB PO SCH (09:40)
[2020-04-08] MEDS: PROTONIX TAB 40 MG PO SCH (09:40)
--- NOTE | 2020-04-08 09:40 | PCM.PROG ---
Progress Note Progress Note for Day of Date of Exam: 04/08/20 Subjective Subjective: Patient seen at bedside, no acute overnight events. She states her throat still hurts, not able to swallow due to discomfort. She was switched to soft diet yesterday but states it still hurts to swallow. She states it feels like the food is getting stuck. Denies fever or chills. Denies N/V/D. She did receive 2 units of blood, states her weakness is better. She is able to get up and go to the bathroom. Her BP has been elevated, she was ordered to get Hydralazine IV but did not receive it. Labs: Hgb 10.4 BUN/Cr: 01/07.06 Na: 144 Cl 112 Covid (-) Strep (-) Plan: Consult Dr. Emery for EGD, keep NPO. Resume norvasc and lisinopril when able to take PO. Continue hydralazine prn for SBP>160. Will DC Azithromycin. Continue pain control and steroids for RA flare. Past Medical Family Social History Past Med/Fam/Surg Hx: No changes since H&P Allergies: Allergies Tetanus Vaccines and Toxoid Allergy (Verified 03/31/20 07:36) Review of Systems ROS: No change since H&P Vital Signs and I&O's Vital Signs: Temperature 97.9 F Pulse Rate [Right Brachial] 99 Pulse Rate 86 Respiratory Rate 16 Blood Pressure [Right Arm] 195/89 Blood Pressure 155/67 O2 Sat by Pulse Oximetry 93 Intake and Output: Intake & Output 04/05/20 04/06/20 04/07/20 04/08/20 23:59 23:59 23:59 23:59 Intake Total 1365 / 1365 3330 / 3330 1984 60 Output Total 500 / 500 2650 / 2650 2400 / 2400 Balance 865 / 865 680 / 680 -415 / -415 Physical Exam Oriented: Normal Eyes: Normal Throat: Dry Respiratory: Normal Cardiovascular: Normal Auscultation: Bowel Sounds: Normal Tenderness: Normal Skin: Normal and Decreased Turgur Musculoskeletal: Right, Left, Hand (b/l hand deformity due to RA ) and Back:Paraspinous Psychiatric: Normal Mood Description: Calm Affect: Normal Speech Pattern: Clear and Appropriate Laboratory and Diagnostics Result Diagrams: 04/08/20 05:20 04/08/20 05:20 Labs: Laboratory WBC 11.3 X10^3/uL (3.6-10.0) H 04/08/20 05:20 RBC 3.90 X10^6/uL (3.5-5.4) 04/08/20 05:20 Hgb 10.4 g/dL (12.0-16.0) L 04/08/20 05:20 Hct 32.1 % (36.0-47.0) L 04/08/20 05:20 MCV 82.3 fL (80.0-100.0) 04/08/20 05:20 MCH 26.6 pg (27.0-34.0) L 04/08/20 05:20 MCHC 32.3 g/dL (33.0-35.0) L 04/08/20 05:20 RDW 22.1 % (11.6-16.5) H 04/08/20 05:20 Plt Count 299 X10^3/uL (150.0-450.0) 04/08/20 05:20 Plt Count Comment Adequate (ADEQUATE) 04/08/20 05:20 MPV 7.0 fL (7.4-11.0) L 04/08/20 05:20 Neut % (Auto) 79.8 % (42.0-75.0) H 04/08/20 05:20 Lymph % (Auto) 13.5 % (21.0-51.0) L 04/08/20 05:20 [place] % (Auto) 5.7 % (0.0-13.0) 04/08/20 05:20 Eos % (Auto) 0.1 % (0.9-2.9) L 04/08/20 05:20 Baso % (Auto) 0.9 % (0.2-1.0) 04/08/20 05:20 Neut # (Auto) 9.0 x10^3/uL (2.2-4.8) H 04/08/20 05:20 Lymph # (Auto) 1.5 X10^3/uL (1.3-2.9) 04/08/20 05:20 [place] # (Auto) 0.6 x10^3/uL (0.3-0.8) 04/08/20 05:20 Eos # (Auto) 0.0 x10^3/uL (0.0-0.2) 04/08/20 05:20 Baso # (Auto) 0.1 X10^3/uL (0.0-0.1) 04/08/20 05:20 Absolute Nucleated RBC 0.1 /100WBC 04/08/20 05:20 Plt Morphology Comment Normal (NORMAL) 04/08/20 05:20 RBC Morphology Abnormal (NORMAL) A 04/08/20 05:20 Hypochromasia 1+ A 04/07/20 05:35 Anisocytosis 2+ A 04/08/20 05:20 PT 14.4 SECONDS (11.8-14.3) 04/06/20 05:20 INR Target Range - 04/06/20 05:20 INR 1.15 (0.8-1.3) 04/06/20 05:20 APTT 37.2 SECONDS (22.9-36.5) H 04/06/20 05:20 PTT Comment - 04/06/20 05:20 Sodium 144 mmol/L (136-145) 04/08/20 05:20 Corrected Sodium TNP 04/08/20 05:20 Potassium 4.4 mmol/L (3.5-5.1) 04/08/20 05:20 Chloride 112 mmol/L (98-107) H 04/08/20 05:20 Carbon Dioxide 18.7 mmol/L (21-32) L 04/08/20 05:20 BUN 22 mg/dL (7-18) H 04/08/20 05:20 Creatinine 1.06 mg/dL (0.55-1.02) H 04/08/20 05:20 Est GFR (MDRD) Af Amer > 60 (>60) 04/08/20 05:20 Est GFR (MDRD) Non-Af 54 (>60) L 04/08/20 05:20 Glucose 90 mg/dL (65-99) 04/08/20 05:20 Calcium 9.4 mg/dL (8.5-10.1) 04/08/20 05:20 Corrected Calcium 9.9 mg/dL (8.5-10.1) 04/06/20 05:20 Magnesium 2.0 mg/dL (1.7-2.9) 04/06/20 05:20 Total Bilirubin 0.20 mg/dL (0.2-1.0) 04/06/20 05:20 AST 16 Units/L (15-37) 04/06/20 05:20 ALT 11 Units/L (12-78) L 04/06/20 05:20 Alkaline Phosphatase 101 Units/L (46-116) 04/06/20 05:20 Creatine Kinase 14 Units/L (26-192) L 04/05/20 11:35 CK-MB (CK-2) < 1.0 ng/mL (0-4.0) 04/05/20 11:35 CK/CKMB % Calc 7.1 % (<4) 04/05/20 11:35 Troponin I < 0.02 ng/mL (0-1.5) 04/05/20 11:35 Total Protein 6.5 g/dL (6.4-8.2) 04/06/20 05:20 Albumin 2.5 g/dL (3.4-5.0) L 04/06/20 05:20 Globulin 4.0 g/dL (2.5-4.5) 04/06/20 05:20 Albumin/Globulin Ratio 0.6 Ratio (1.1-2.1) L 04/06/20 05:20 Specimen Type Clean catch urine 04/05/20 18:05 Urine Color Yellow (YELLOW) 04/05/20 18:05 Urine Appearance Clear (CLEAR) 04/05/20 18:05 Urine pH 5.0 (5.0 - 8.0) 04/05/20 18:05 Ur Specific [place] 1.010 (1.000-1.030) 04/05/20 18:05 Urine Protein 2+ (NEGATIVE) 04/05/20 18:05 Urine Glucose (UA) Negative (NEGATIVE) 04/05/20 18:05 Urine Ketones Negative (NEGATIVE) 04/05/20 18:05 Urine Occult Blood Negative (NEGATIVE) 04/05/20 18:05 Urine Nitrite Negative (NEGATIVE) 04/05/20 18:05 Urine Bilirubin Negative (NEGATIVE) 04/05/20 18:05 Urine Urobilinogen Normal (NORMAL) 04/05/20 18:05 Ur Leukocyte Esterase 2+ (NEGATIVE) 04/05/20 18:05 Urine RBC None seen /HPF (0-3) 04/05/20 18:05 Urine WBC 3-5 /HPF (0-5) 04/05/20 18:05 Ur Squamous Epith Cells Rare /HPF (NEGATIVE) 04/05/20 18:05 Urine Bacteria Negative /HPF (NEGATIVE) 04/05/20 18:05 Ur Culture Indicated? No/not indicated 04/05/20 18:05 SARS-CoV-2 (PCR) Negative (NEGATIVE) 04/06/20 08:26 S. pyogenes (TEM-PCR) Not detected (NOT DETECT) 04/06/20 08:26 Blood Type O POSITIVE 04/07/20 08:42 Antibody Screen Negative 04/07/20 08:42 Crossmatch See Detail 04/07/20 08:42 Plan (1) Dysphagia: Status: Acute Qualifiers: Dysphagia type: oropharyngeal phase Qualified Code(s): R13.12 - Dysphagia, oropharyngeal phase (2) Dehydration: Status: Acute (3) Acute on chronic renal failure: Status: Acute Qualifiers: Acute renal failure type: unspecified Chronic kidney disease stage: unspecified stage Qualified Code(s): N17.9 - Acute kidney failure, unspecified; N18.9 - Chronic kidney disease, unspecified (4) Rheumatoid arthritis: Status: Acute Qualifiers: Rheumatoid arthritis location: multiple sites Rheumatoid factor presence: unspecified presence Qualified Code(s): M06.9 - Rheumatoid arthritis, unspecified (5) Severe anemia: Status: Acute (6) Iron deficiency anemia: Status: Acute Qualifiers: Iron deficiency anemia type: inadequate dietary iron intake Qualified Code(s): D50.8 - Other iron deficiency anemias (7) Generalized weakness: Status: Acute
[2020-04-08] MEDS ORDERED: DIPRIVAN VIAL 20 ML ONE (10:12)
[2020-04-08] MEDS: ZITHROMAX INJ 500 MG VIAL 250 MG in NS 250 ML IV 250 ML IV SCH (11:28)
[2020-04-08] MEDS: NORCO 7.5/325 MG TAB PO PRN ×2 (11:51→21:30)
[2020-04-08] MEDS: REQUIP PO SCH (21:30)
[2020-04-08] MEDS: PROTONIX INJ 40 MG VIAL IVP SCH (21:30)
[2020-04-08] MEDS: REMERON PO SCH (21:30)
[2020-04-09] MEDS: HEMOCYTE-PLUS PO SCH ×3 (06:06→21:45)
[2020-04-09 06:09] LABS: BASOPHILS % (AUTO) 0.5 % (0.2-1.0); EOSINOPHILS % (AUTO) 0.1 % (0.9-2.9); HEMATOCRIT 29.5 % (36.0-47.0); HEMOGLOBIN 9.7 g/dL (12.0-16.0); LYMPHOCYTES # (AUTO) 1.5 X10^3/uL (1.3-2.9); LYMPHOCYTES % (AUTO) 17.7 % (21.0-51.0); MEAN CORPUSCULAR HEMOGLOBIN 27.3 pg (27.0-34.0); MEAN CORPUSCULAR HGB CONC 32.9 g/dL (33.0-35.0); MEAN CORPUSCULAR VOLUME 83.1 fL (80.0-100.0); MEAN PLATELET VOLUME 7.1 fL (7.4-11.0); MONOCYTES # (AUTO) 0.9 x10^3/uL (0.3-0.8); NEUTROPHILS # (AUTO) 6.1 x10^3/uL (2.2-4.8); NEUTROPHILS % (AUTO) 70.7 % (42.0-75.0); PLATELET COUNT 271 X10^3/uL (150.0-450.0); RED BLOOD COUNT 3.55 X10^6/uL (3.5-5.4); RED CELL DISTRIBUTION WIDTH 21.7 % (11.6-16.5); WHITE BLOOD COUNT 8.6 X10^3/uL (3.6-10.0)
[2020-04-09] MEDS: NYSTATIN SUSP PO SCH ×3 (06:15→23:30)
[2020-04-09 06:30] LABS: BLOOD UREA NITROGEN 21 mg/dL (7-18); CALCIUM 9.1 mg/dL (8.5-10.1); CARBON DIOXIDE 21.4 mmol/L (21-32); CHLORIDE 110 mmol/L (98-107); CREATININE 1.03 mg/dL (0.55-1.02); SODIUM 142 mmol/L (136-145); eGFR NON BLACK RACES 56 (>60)
[2020-04-09 06:48] LABS: ANISOCYTOSIS 1+; PLATELET MORPHOLOGY COMMENT NORMAL (NORMAL)
[2020-04-09] MEDS: CITRACAL + VITAMIN D PO SCH (09:11)
[2020-04-09] MEDS: LOPRESSOR TAB 25 MG PO SCH ×2 (09:12→21:45)
[2020-04-09] MEDS: PREDNISONE TAB 20 MG PO SCH (09:13)
[2020-04-09] MEDS: NORVASC TAB 5 MG PO SCH (09:13)
[2020-04-09] MEDS: NEURONTIN CAP 100 MG PO SCH (09:13)
[2020-04-09] MEDS: SYNTHROID 88 mcg TAB PO SCH (09:14)
[2020-04-09] MEDS: ZESTRIL TAB 40 MG PO SCH (09:14)
[2020-04-09] MEDS: PROTONIX INJ 40 MG VIAL IVP SCH ×2 (09:14→21:45)
[2020-04-09] MEDS: VITAMIN D3 125 mcg (5,000 UNITS) PO SCH (09:14)
[2020-04-09] MEDS: ASPIRIN EC 81 MG PO SCH (09:19)
[2020-04-09] MEDS: CARAFATE ORAL SUSP PO SCH ×3 (11:24→21:45)
[2020-04-09] MEDS: APRESOLINE INJ 20 MG VIAL IVP PRN (11:50)
[2020-04-09] MEDS: NORCO 7.5/325 MG TAB PO PRN (21:45)
[2020-04-09] MEDS: REQUIP PO SCH (21:45)
[2020-04-09] MEDS: REMERON PO SCH (21:45)
[2020-04-10] MEDS: APRESOLINE INJ 20 MG VIAL IVP PRN (03:37)
[2020-04-10] MEDS: NYSTATIN SUSP PO SCH (05:28)
[2020-04-10] MEDS: HEMOCYTE-PLUS PO SCH (05:28)
[2020-04-10] MEDS: CARAFATE ORAL SUSP PO SCH (05:37)
[2020-04-10 06:11] LABS: BASOPHILS # (AUTO) 0.1 X10^3/uL (0.0-0.1); BASOPHILS % (AUTO) 0.6 % (0.2-1.0); EOSINOPHILS % (AUTO) 0.5 % (0.9-2.9); HEMATOCRIT 35.1 % (36.0-47.0); HEMOGLOBIN 11.3 g/dL (12.0-16.0); LYMPHOCYTES # (AUTO) 2.2 X10^3/uL (1.3-2.9); MEAN CORPUSCULAR HEMOGLOBIN 26.5 pg (27.0-34.0); MEAN CORPUSCULAR HGB CONC 32.1 g/dL (33.0-35.0); MEAN CORPUSCULAR VOLUME 82.5 fL (80.0-100.0); MEAN PLATELET VOLUME 6.9 fL (7.4-11.0); MONOCYTES # (AUTO) 0.7 x10^3/uL (0.3-0.8); NEUTROPHILS # (AUTO) 6.2 x10^3/uL (2.2-4.8); NEUTROPHILS % (AUTO) 66.9 % (42.0-75.0); PLATELET COUNT 295 X10^3/uL (150.0-450.0); RED BLOOD COUNT 4.25 X10^6/uL (3.5-5.4); RED CELL DISTRIBUTION WIDTH 21.4 % (11.6-16.5); WHITE BLOOD COUNT 9.3 X10^3/uL (3.6-10.0)
[2020-04-10 06:25] LABS: BLOOD UREA NITROGEN 15 mg/dL (7-18); CALCIUM 9.7 mg/dL (8.5-10.1); CARBON DIOXIDE 23.9 mmol/L (21-32); CHLORIDE 106 mmol/L (98-107); CREATININE 0.95 mg/dL (0.55-1.02); SODIUM 140 mmol/L (136-145); eGFR NON BLACK RACES > 60 (>60)
[2020-04-10 06:46] LABS: ANISOCYTOSIS 1+; PLATELET MORPHOLOGY COMMENT NORMAL (NORMAL)
[2020-04-10] MEDS ORDERED: K-RIDER 10 MEQ/NS 100 ML 10 MEQ/100 ML BAG IV PRN (07:20)
[2020-04-10] MEDS ORDERED: POTASSIUM CHL 40 MEQ/NS 0.45% 500 ML IV PRN (07:20)
[2020-04-10] MEDS ORDERED: KLOR-CON PO PRN (07:20)
[2020-04-10] MEDS ORDERED: POTASSIUM CHL 60 MEQ/NS 0.45% 500 ML IV PRN (07:20)
[2020-04-10] MEDS ORDERED: K-DUR TAB 20 MEQ PO PRN (07:20)
[2020-04-10] MEDS ORDERED: MICRO K EXTEN CAP 10 MEQ PO PRN (07:20)
[2020-04-10] MEDS ORDERED: POTASSIUM CHLORIDE LIQ 20 MEQ UDC PO PRN (07:20)
[2020-04-10] MEDS ORDERED: MAG-OX TAB ONE (08:43)
[2020-04-10] MEDS: NORVASC TAB 5 MG PO SCH (09:25)
[2020-04-10] MEDS: ASPIRIN EC 81 MG PO SCH (09:25)
[2020-04-10] MEDS: LOPRESSOR TAB 25 MG PO SCH (09:26)
[2020-04-10] MEDS: NEURONTIN CAP 100 MG PO SCH (09:27)
[2020-04-10] MEDS: ZESTRIL TAB 40 MG PO SCH (09:27)
[2020-04-10] MEDS: CITRACAL + VITAMIN D PO SCH (09:28)
[2020-04-10] MEDS: SYNTHROID 88 mcg TAB PO SCH (09:29)
[2020-04-10] MEDS: VITAMIN D3 125 mcg (5,000 UNITS) PO SCH (09:29)
[2020-04-10] MEDS: PROTONIX INJ 40 MG VIAL IVP SCH (09:30)
[2020-04-10] MEDS: PREDNISONE TAB 20 MG PO SCH (09:30)
[2020-04-10] MEDS ORDERED: MAG-OX TAB PO ONE (09:31)
[2020-04-10 11:23] VITALS: BP 157/68
[2020-04-11] MEDS ORDERED: MAG-OX TAB PO SCH (07:00)
== END 2020-04-10 12:40 | disposition home or self-care (01) ==
LOC: MED/SURG 10:44 → ER 10:44 → MED/SURG 14:05
PROVIDERS: ADMIT Internal Medicine; ATTEND Internal Medicine

== ENCOUNTER 2021-04-25 15:50 | Observation (INO) ==
[2021-04-25] MEDS: NS 1,000 ML IV 1,000 ML IV SCH (18:33)
[2021-04-25 19:06] LABS: BASOPHILS # (AUTO) 0.1 X10^3/uL (0.0-0.1); BASOPHILS % (AUTO) 0.8 % (0.2-1.0); EOSINOPHILS # (AUTO) 0.3 x10^3/uL (0.0-0.2); EOSINOPHILS % (AUTO) 2.1 % (0.9-2.9); HEMATOCRIT 39.5 % (36.0-47.0); HEMOGLOBIN 12.8 g/dL (12.0-16.0); LYMPHOCYTES # (AUTO) 1.5 X10^3/uL (1.3-2.9); LYMPHOCYTES % (AUTO) 10.9 % (21.0-51.0); MEAN CORPUSCULAR HEMOGLOBIN 29.6 pg (27.0-34.0); MEAN CORPUSCULAR HGB CONC 32.4 g/dL (33.0-35.0); MEAN CORPUSCULAR VOLUME 91.1 fL (80.0-100.0); MEAN PLATELET VOLUME 7.8 fL (7.4-11.0); MONOCYTES # (AUTO) 0.9 x10^3/uL (0.3-0.8); MONOCYTES % (AUTO) 7.1 % (0.0-13.0); NEUTROPHILS # (AUTO) 10.5 x10^3/uL (2.2-4.8); NEUTROPHILS % (AUTO) 79.1 % (42.0-75.0); PLATELET COUNT 316 X10^3/uL (150.0-450.0); RED BLOOD COUNT 4.33 X10^6/uL (3.5-5.4); RED CELL DISTRIBUTION WIDTH 14.5 % (11.6-16.5); WHITE BLOOD COUNT 13.3 X10^3/uL (3.6-10.0)
[2021-04-25 19:20] LABS: ALANINE AMINOTRANSFERASE 10 Units/L (12-78); ALBUMIN 3.9 g/dL (3.4-5.0); ALKALINE PHOSPHATASE 89 Units/L (46-116); ASPARTATE AMINO TRANSFERASE 13 Units/L (15-37); BLOOD UREA NITROGEN 34 mg/dL (7-18); CALCIUM 9.2 mg/dL (8.5-10.1); CARBON DIOXIDE 21.3 mmol/L (21-32); CHLORIDE 99 mmol/L (98-107); CREATININE 3.45 mg/dL (0.55-1.02); SODIUM 134 mmol/L (136-145); TOTAL PROTEIN 7.6 g/dL (6.4-8.2); eGFR NON BLACK RACES 14 (>60)
[2021-04-25 21:11] VITALS: BMI 22.0
[2021-04-25] MEDS: PROTONIX INJ 40 MG VIAL IVP SCH (21:20)
[2021-04-25] MEDS: REMERON PO SCH (21:20)
[2021-04-25] MEDS: REQUIP PO SCH (21:44)
[2021-04-25] MEDS: LOPRESSOR TAB 25 MG PO SCH (21:45)
[2021-04-26] MEDS: NS 1,000 ML IV 1,000 ML IV SCH ×3 (02:55→18:10)
[2021-04-26 05:04] LABS: BASOPHILS # (AUTO) 0.1 X10^3/uL (0.0-0.1); BASOPHILS % (AUTO) 0.6 % (0.2-1.0); EOSINOPHILS # (AUTO) 0.3 x10^3/uL (0.0-0.2); EOSINOPHILS % (AUTO) 2.8 % (0.9-2.9); HEMATOCRIT 33.5 % (36.0-47.0); HEMOGLOBIN 11.1 g/dL (12.0-16.0); LYMPHOCYTES # (AUTO) 1.2 X10^3/uL (1.3-2.9); LYMPHOCYTES % (AUTO) 11.6 % (21.0-51.0); MEAN CORPUSCULAR HEMOGLOBIN 29.7 pg (27.0-34.0); MEAN CORPUSCULAR HGB CONC 33.2 g/dL (33.0-35.0); MEAN CORPUSCULAR VOLUME 89.4 fL (80.0-100.0); MEAN PLATELET VOLUME 8.2 fL (7.4-11.0); MONOCYTES # (AUTO) 0.9 x10^3/uL (0.3-0.8); MONOCYTES % (AUTO) 9.3 % (0.0-13.0); NEUTROPHILS # (AUTO) 7.5 x10^3/uL (2.2-4.8); NEUTROPHILS % (AUTO) 75.7 % (42.0-75.0); PLATELET COUNT 275 X10^3/uL (150.0-450.0); RED BLOOD COUNT 3.74 X10^6/uL (3.5-5.4); RED CELL DISTRIBUTION WIDTH 14.3 % (11.6-16.5); WHITE BLOOD COUNT 9.9 X10^3/uL (3.6-10.0)
[2021-04-26 05:15] LABS: ALANINE AMINOTRANSFERASE 11 Units/L (12-78); ALBUMIN 3.1 g/dL (3.4-5.0); ALKALINE PHOSPHATASE 73 Units/L (46-116); ASPARTATE AMINO TRANSFERASE 12 Units/L (15-37); BLOOD UREA NITROGEN 29 mg/dL (7-18); CALCIUM 8.2 mg/dL (8.5-10.1); CARBON DIOXIDE 22.7 mmol/L (21-32); CHLORIDE 105 mmol/L (98-107); COR CA(FOR HYPOALB) 8.9 mg/dL (8.5-10.1); CREATININE 2.38 mg/dL (0.55-1.02); SODIUM 136 mmol/L (136-145); eGFR NON BLACK RACES 21 (>60)
[2021-04-26] MEDS ORDERED: K-DUR TAB 20 MEQ PO PRN (06:59)
--- NOTE | 2021-04-26 07:04 | RAD ---
HISTORYWeakness, leukocytosisSTUDYChest AP [id number] t size is normal. Arline are normal. Lungs are well inflated and free of acute infiltrates. No pleural effusions are identified. Bony thorax is unremarkable.IMPRESSIONLungs clearElectronically signed by: KAYLI ROQUE (Apr 26, 2021 07:02:53)
[2021-04-26] MEDS: MAGNESIUM SULFATE 1 GRAM/100 mL PREMIX 1 G/100 ML BAG IV PRN ×2 (07:14→17:38)
[2021-04-26] MEDS ORDERED: DIPRIVAN VIAL 20 ML ONE (08:19)
--- NOTE | 2021-04-26 08:26 | DR.H&P ---
H&P History & Physical for Day of: H&P Date: 04/25/21 Chief Complaint Chief Complaint: intractable nausea, vomiting, weakness Allergies Allergies Allergy/AdvReac Type Severity Reaction Status Date / Time Tetanus Vaccines and Toxoid Allergy Verified 03/31/20 07:36 History of Present Illness History of Present Illness: Ms Carroll is a 75y/o female with multiple eva rbidities presented to the clinic with generalized weakness and poor oral intake. Patient has been feeling this way for a couple weeks. She has not maite able to tolerate oral intake. She states solid foods get stuck while swallowing. She also reports intermittent epigastric pain. She has also been having diarrhea which has slowed down some. Denies blood in stool. She has been taking her medications. She reports severe weakness. Patient had an EGD last year. 04/08/21 EGD Upper esophageal spasm Esophageal dysmotility disorder Gastritis involving the antrum No evidence of bleeding or obstruction Plan: due to patient's poor oral intake, dehydration and dysphagia will direct admit to the hospital. Order CBC, CMP, Mag, stool studies, CXR. Start IVF at 125cc/hr, monitor vitals. Surgery consult for EGD. Resume home medications, hold Lasix. Start IV Protonix. Start full liquids, NPO after midnight. Monitor AM labs/imaging. Past Medical History Past Medical History: Anemia, Arthritis, Coronary Artery Disease, Dyslipidemia, Hypertension, Liver Disease, AR and Renal Disease Past Surgical History Surgical History: Hysterectomy Family History Family Medical History: Cancer Social History Does patient currently use any type of tobacco product: No Have you used tobacco products in the last 12 months: No Type of Tobacco Use: None Does any household member use tobacco: No Alcohol Use: None Drug Use: Prescription Drugs Prescription drug monitoring program results: PDMP reviewed and no concerns identified Medications Home Medications: Tetanus Vaccines and Toxoid Allergy (Verified 03/31/20 07:36) Labs Result Diagrams: 04/26/21 04:23 04/26/21 04:23 Labs: Laboratory WBC 9.9 X10^3/uL (3.6-10.0) 04/26/21 04:23 RBC 3.74 X10^6/uL (3.5-5.4) 04/26/21 04:23 Hgb 11.1 g/dL (12.0-16.0) L 04/26/21 04:23 Hct 33.5 % (36.0-47.0) L 04/26/21 04:23 MCV 89.4 fL (80.0-100.0) 04/26/21 04:23 MCH 29.7 pg (27.0-34.0) 04/26/21 04:23 MCHC 33.2 g/dL (33.0-35.0) 04/26/21 04:23 RDW 14.3 % (11.6-16.5) 04/26/21 04:23 Plt Count 275 X10^3/uL (150.0-450.0) 04/26/21 04:23 MPV 8.2 fL (7.4-11.0) 04/26/21 04:23 Neut % (Auto) 75.7 % (42.0-75.0) H 04/26/21 04:23 Lymph % (Auto) 11.6 % (21.0-51.0) L 04/26/21 04:23 [place] % (Auto) 9.3 % (0.0-13.0) 04/26/21 04:23 Eos % (Auto) 2.8 % (0.9-2.9) 04/26/21 04:23 Baso % (Auto) 0.6 % (0.2-1.0) 04/26/21 04:23 Neut # (Auto) 7.5 x10^3/uL (2.2-4.8) H 04/26/21 04:23 Lymph # (Auto) 1.2 X10^3/uL (1.3-2.9) L 04/26/21 04:23 [place] # (Auto) 0.9 x10^3/uL (0.3-0.8) H 04/26/21 04:23 Eos # (Auto) 0.3 x10^3/uL (0.0-0.2) H 04/26/21 04:23 Baso # (Auto) 0.1 X10^3/uL (0.0-0.1) 04/26/21 04:23 Absolute Nucleated RBC 0.0 /100WBC 04/26/21 04:23 Sodium 136 mmol/L (136-145) 04/26/21 04:23 Corrected Sodium TNP 04/26/21 04:23 Potassium 4.8 mmol/L (3.5-5.1) 04/26/21 04:23 Chloride 105 mmol/L (98-107) 04/26/21 04:23 Carbon Dioxide 22.7 mmol/L (21-32) 04/26/21 04:23 BUN 29 mg/dL (7-18) H 04/26/21 04:23 Creatinine 2.38 mg/dL (0.55-1.02) H 04/26/21 04:23 Est GFR (MDRD) Af Amer 25 (>60) L 04/26/21 04:23 Est GFR (MDRD) Non-Af 21 (>60) L 04/26/21 04:23 Glucose 78 mg/dL (65-99) 04/26/21 04:23 Calcium 8.2 mg/dL (8.5-10.1) L 04/26/21 04:23 Corrected Calcium 8.9 mg/dL (8.5-10.1) 04/26/21 04:23 Magnesium 1.7 mg/dL (1.7-2.9) 04/26/21 04:23 Total Bilirubin 0.30 mg/dL (0.2-1.0) 04/26/21 04:23 AST 12 Units/L (15-37) L 04/26/21 04:23 ALT 11 Units/L (12-78) L 04/26/21 04:23 Alkaline Phosphatase 73 Units/L (46-116) 04/26/21 04:23 Total Protein 6.0 g/dL (6.4-8.2) L 04/26/21 04:23 Albumin 3.1 g/dL (3.4-5.0) L 04/26/21 04:23 Globulin 2.9 g/dL (2.5-4.5) 04/26/21 04:23 Albumin/Globulin Ratio 1.1 Ratio (1.1-2.1) 04/26/21 04:23 SARS CoV-2 RNA Rapid FELIZ Negative (NEGATIVE) 04/25/21 17:05 Review of Systems Constitutional: Weakness and Malaise Eyes: Eyelid Inflammation ENT: No Symptoms Reported Respiratory: No Symptoms Reported Cardiovascular: No Symptoms Reported Gastrointestinal: Nausea, Vomiting, Abdominal Pain and Diarrhea Genitourinary: No Symptoms Reported Musculoskeletal: Back Pain and Hand Pain Skin: No Symptoms Reported Neurological: No Symptoms Reported Physical Exam Vital Signs: Temperature 98.5 F Pulse Rate [Right Radial] 76 Respiratory Rate 20 Blood Pressure [Right Arm] 118/58 O2 Sat by Pulse Oximetry 97 Oriented: Normal Eyes: Redness Ear: Normal Nose: Normal Throat: Dry Respiratory: Clear Throughout Cardiovascular: Normal Auscultation: Bowel Sounds: Normal Tenderness: Epigastric and Mild Skin: Decreased Turgur Musculoskeletal: Back:Paraspinous and Motor Deficit Mood Description: Calm Affect: Normal Speech Pattern: Clear and Appropriate Assessment/Plan (1) Acute dehydration: Status: Acute (2) Acute on chronic kidney failure: Qualifiers: Acute renal failure type: unspecified Chronic kidney disease stage: unspecified stage Qualified Code(s): N17.9 - Acute kidney failure, unspecified; N18.9 - Chronic kidney disease, unspecified Status: Acute (3) Dysphagia: Qualifiers: Dysphagia type: oropharyngeal phase Qualified Code(s): R13.12 - Dysphag ia, oropharyngeal phase Status: Acute (4) Generalized weakness: Status: Acute (5) Diarrhea: Qualifiers: Diarrhea type: unspecified type Qualified Code(s): R19.7 - Diarrhea, unspecified Status: Acute (6) Iron deficiency anemia: Qualifiers: Iron deficiency anemia type: inadequate dietary iron intake Qualified Code(s): D50.8 - Other iron deficiency anemias Status: Acute (7) Anemia: Qualifiers: Anemia type: unspecified type Qualified Code(s): D64.9 - Anemia, unspecified Status: Acute Review H&P Reviewed: Yes Patient was examined?: Yes
[2021-04-26] MEDS ORDERED: D5 LR 1,000 ML 1,000 ML IV ONE (08:27)
[2021-04-26] MEDS: LOPRESSOR TAB 25 MG PO SCH ×2 (09:52→21:47)
--- OUTSIDE RECORDS SUMMARY | 2021-04-26 10:53 | XMS | Continuity of Care Document ---
:1945 Author Name Team Truck Driver Address Unavailable Unavailable , Care Team Providers Name Role Phone No Unavailable Unavailable Samantha VERDUZCO Unavailable Marquise Unavailable Unavailable Cristal Unavailable Unavailable Kavitha Unavailable Unavailable Unavailable Unavailable Problems Name Dates Details Acute cystitis without hematuria (N30.00, 595.0) Comments: UA: Blood (-) Nit (- ) OLMAN trace Protein (-)Will send for urine culture Start Keflex BID x 5 days Advised patient to drink lots of water, if Sx persist or worsen then RTCPatient would like us to send uri ne culture results t o her [facility] Dr. Natali Esquivel at [facility] [place]. Status: Active Allergic conjunctivitis and rhinitis (H10.10, 372.05) Status: Active Anemia Status: Active Anemia, deficiency (D53.9, 281.9) Commen ts: Currently having vaginal/uterine bleeding Prev Hgb 11.3 in Apr 2020Hgb today 12.2Patient scheduled to have CARPENTER/LABOR surgery soon.Continue iron supplementsHx of chronic anemia due to JESSICA EGD done during last admission, showed ga stritis, no active bleeding or ulcer Status: Active Angina Pectoris Status: Active Arthritis Status: Active Bladder Problems Status: Active CAD (coronary artery disease) (I25.10, 414.00) Comments: No acute symptoms, has intermittent angina pain once in a while which has not changed or increased in frequency. 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83) Status: Active Encounter for monitoring opioid maintenance therapy (Z51.81, V58.83) Status: Active Encounter for monitoring opioid maintenance therapy (Z51.81, V58.83) Status: Active Encounter for monitoring opioid maintenance therapy (Z51.81, V58.83) Status: Active Fluarix vaccination (69592) (Renamed from Flu vaccine need) (Z23, V04.81) Status: Active Generalized pruritus (L29.9, 698.9) Stat us: Active GERD without esophagitis (K21.9, 530.81) Comments: Discussed diet changes, avoid spicy foods, sodas and excessive caffeine Continue protonix 40 mg BIDContinue famotidine 20 mg BID04/08/2020 EGD 1. Upper esophageal spasm.2. Esophageal dysmotility disorder.3. Gastritis involving the antrum. Status: Active Heart disease Status: Active High blood pressure Status: Active HLD (hyperlipidemia) (E78.5, 272.4) Stat us: Active Hospital discharge follow-up (Z09, V67.59) Status: Active HTN (hypertension), benign (I10, 401.1) Comments: Denies SxContinue current treatment Advised to keep a BP log, reports BM machine not working, will send in another one Seeing cardioBP: 161/78 Status: Active Hypercholesterolemia Status: Active Hypothyroidism (E03.9, 244.9) Comments: Continue current dose of levothyroxineThyroid panel done last visit, normal FT4 Status: Active Insomnia, controlled (G47.00, 780.52) St atus: Active Iron deficiency anemia, unspecified iron deficiency anemia t ype (D50.9, 280.9) Comments: continue iron supplements Status: Active Kidney Disease Status: Active Liver disease Status: Active Myocardial Infarction Status: Active Nausea (R11.0, 787.02) Status: Active Osteoporosis Status: Active RA (rheumatoid arthritis) (M06.9, 714.0) Comments: Sees Rheum, currently on Enbrel and doing well. Denies side effectsF/U with Rheum as scheduled Continue pain control, refill Radisson TID prnHx of chronic pain due to RA Status: Active Restless leg (G25.81, 333.94) Comments: Stable, continue current dose of Ropinirole Status: Active Rhinosinusitis (J31.0, 473.9) Comments: Cough, congestion and runny noseCOVID swab pending Status: Active Severe obstructive sleep apnea (G47.33, 327.23) Comments: Will refer for CPAP titration and set upPatient's sleep study: severe ANDERSON Status: Active Snoring (R06.83, 786.09) Status: Active Suspected COVID-19 virus infection (Z20.822, V01.79) Comments: Due to worsening symptoms and possible exposure, will check for COVID. Advised patient to self- isolate and quarantine until results come backPatient will be notified with the results. Advised proper mota d hygiene and sanita tion at home Avoid any interaction with other family members. Advised to stay home until results. If symptoms persist or worsen, RTC or go to ED immediately. Status: Active Thyroid Disease Status: Active Transfusion Of Whole Blood Status: Activ e Uterine bleeding (N93.9, 626.9) Comments : Seeing CARPENTER/LABOR and Uro-GYNAwaiting cardiac clearance prior to surgery, scheduled for stress test this monthF/U as scheduledSlightly better Status: Active Uterine prolapse (N81.4, 618.1) Comments : Seeing URO-CARPENTER/LABOR in [place], recommended hysterectomy with sling procedure Awaiting cardiac clearanceF/U as scheduled Status: Active Medications Name Dates Details amLODIPine Besylate 5 MG Oral Tablet 1 Tablet at bedtime for 90 days Quantity: 90 {Tablet} Refills: 3 Ordered:13-Jan-2021 Michelle Singh MD Start : 13-Jan-2021 Active Comments:Mail order. amLODIPine Besylate 5 MG Oral Tablet 1 Tablet at bedtime for 30 days Quantity: 30 {Tablet} Refills: 1 Ordered:13-Jan-2021 Michelle Singh MD Start : 13-Jan-2021 Active Aspirin 81 MG Oral Tablet Delayed Release 81 mg daily for 0 days Refills: 0 Ordered:07-Mar-2020 Michelle Singh MD Start : 07-Mar-2020 Active Atorvastatin Calcium 20 MG Oral Tablet 1 Tablet at bedtime for 90 days Quantity: 90 {Tablet} Refills: 1 Ordered:02-May-2020 Michelle Singh MD Start : 02-May-2020 Active Calcium Active Clopidogrel Bisulfate 75 MG Oral Tablet 1 Tablet at bedtime for 30 days Quantity: 30 {Tablet} Refills: 2 Ordered:05-Dec-2020 Michelle Singh MD Start : 05-Dec-2020 End : 14-Nov-2020 Active Famotidine 20 MG Oral Tablet 1 (one) Tablet twice a day for 30 days Quantity: 60 {Tablet} Refills: 1 Ordered:14-Dec-2020 Bekah Ordonez Start : 14-Dec-2020 Active Furosemide 20 MG Oral Tablet 1 (one) Tablet daily for 90 days Quantity: 90 {Tablet} Refills: 3 Ordered:13-Jan-2021 Michelle Singh MD Start : 13-Jan-2021 Active Comments:Mail order. Furosemide 20 MG Oral Tablet 1 (one) Tablet daily for 30 days Quantity: 30 {Tablet} Refills: 3 Ordered:13-Jan-2021 Michelle Singh MD Start : 13-Jan-2021 Active Gabapentin 100 MG Oral Capsule 100 mg daily for 0 days Refills: 0 Ordered:07-Mar-2020 Michelle Singh MD Start : 07-Mar-2020 Active HYDROcodone-Acetaminophen 7.5-325 MG Oral Tablet 1 (one) Tablet three times daily, as needed for 30 days Quantity: 90 {Tablet} Refills: 0 Ordered:10-Apr-2021 Michelle Singh MD Start : 10-Apr-2021 Active Comments:Medication taken as needed. Levothyroxine Sodium 88 MCG Oral Tablet 1 (one) Tablet every morning for 90 days Quantity: 90 {Tablet} Refills: 3 Ordered:13-Jan-2021 Michelle Singh MD Start : 13-Jan-2021 Active Comments:Mail order. Levothyroxine Sodium 88 MCG Oral Tablet 1 (one) Tablet every morning for 30 days Quantity: 30 {Tablet} Refills: 2 Ordered:13-Jan-2021 Michelle Singh MD Start : 13-Jan-2021 Active Lisinopril 40 MG Oral Tablet 1 Tablet two times daily for 90 days Quantity: 180 {Tablet} Refills: 3 Ordered:13-Jan-2021 Michelle Singh MD Start : 13-Jan-2021 Active Comments:Mail order. Lisinopril 40 MG Oral Tablet 1 Tablet two times daily for 30 days Quantity: 60 {Tablet} Refills: 2 Ordered:13-Jan-2021 Michelle Singh MD Start : 13-Jan-2021 Active Metoprolol Tartrate 25 MG Oral Tablet 1 Tablet two times daily for 90 days Quantity: 180 {Tablet} Refills: 3 Ordered:15-Dec-2020 Michelle Singh MD Start : 15-Dec-2020 Active Comments:Mail order. Metoprolol Tartrate 25 MG Oral Tablet 1 Tablet two times daily for 30 days Quantity: 60 {Tablet} Refills: 1 Ordered:15-Dec-2020 Michelle Singh MD Start : 15-Dec-2020 Active Mirtazapine 7.5 MG Oral Tablet 1 (one) Tablet at bedtime for 30 days Quantity: 30 {Tablet} Refills: 1 Ordered:10-Mar-2021 Michelle Singh MD Start : 10-Mar-2021 Active Comments:Mail order. Mirtazapine 7.5 MG Oral Tablet 1 (one) Tablet at bedtime for 30 days Quantity: 30 {Tablet} Refills: 1 Ordered:10-Mar-2021 Michelle Singh MD Start : 10-Mar-2021 Active Nitroglycerin 0.4 MG Sublingual Tablet Sublingual 1 (one) Tablet as needed for 30 days Quantity: 30 {Tablet} Refills: 1 Ordered:07-Mar-2020 Marcie Bee Start : 07-Mar-2020 Active Comments:Medication taken as needed. as needed for chest pain Ondansetron 4 MG Oral Tablet Disintegrating 1 (one) Tablet three times daily, as needed for 15 days Quantity: 45 {Tablet} Refills: 2 Ordered:10-Mar-2021 Michelle Singh MD Start : 10-Mar-2021 Active Comments:Medication taken as needed. Pantoprazole Sodium 40 MG Oral Tablet Delayed Release 1 (one) Tablet twice a day for 30 days Quantity: 60 {Tablet} Refills: 3 Ordered:10-Mar-2021 Michelle Singh MD Start : 10-Mar-2021 Active Comments:Mail order. rOPINIRole HCl 1 MG Oral Tablet 1 Tablet at bedtime for 90 days Quantity: 90 {Tablet} Refills: 3 Ordered:13-Jan-2021 Michelle Singh MD Start : 13-Jan-2021 Active Comments:Mail order. rOPINIRole HCl 1 MG Oral Tablet 1 Tablet at bedtime for 30 days Quantity: 30 {Tablet} Refills: 2 Ordered:13-Jan-2021 Michelle Singh MD Start : 13-Jan-2021 Active Spironolactone 50 MG Oral Tablet 1 (one) Tablet at bedtime for 30 days Quantity: 30 {Tablet} Refills: 3 Ordered:13-Jan-2021 Michelle Singh MD Start : 13-Jan-2021 Active Spironolactone 50 MG Oral Tablet 1 (one) Tablet at bedtime for 90 days Quantity: 90 {Tablet} Refills: 3 Ordered:13-Jan-2021 Michelle Singh MD Start : 13-Jan-2021 Active Comments:Mail order. Vitamin E Active Allergy Relief 50 MCG/ACT Nasal Suspension 1 (one) Benedict two times daily, as needed for 14 days Quantity: 1 {Bottle} Refills: 0 Ordered:07-Jun-2020 Michelle Singh MD Start : 07-Jun-2020 End : 21-Jun-2020 Inactive Comments:Medication taken as needed. Azithromycin 250 MG Oral Tablet 1 (one) Tablet daily for 5 days Quantity: 6 {Tablet} Refills: 0 Ordered:07-Jun-2020 Michelle Singh MD Start : 07-Jun-2020 End : 12-Jun-2020 Inactive Belsomra 15 MG Oral Tablet 15 mg for 0 days Refills: 0 Ordered:14-Nov-2020 Roslyn Plummer Start : 07-Mar-2020 End : 14-Nov-2020 Inactive Cephalexin 500 MG Oral Capsule 1 (one) Capsule twice a day for 5 days Quantity: 10 {Capsule} Refills: 0 Ordered:01-Aug-2020 Michelle Singh MD Start : 01-Aug-2020 End : 06-Aug-2020 Inactive Cetirizine HCl 10 MG Oral Tablet 1 (one) Tablet daily for 30 days Quantity: 30 {Tablet} Refills: 1 Ordered:14-Nov-2020 Roslyn Plummer Start : 07-Jun-2020 End : 14-Nov-2020 Inactive Cetirizine HCl 5 MG Oral Tablet 1 (one) Tablet daily for 30 days Quantity: 30 {Tablet} Refills: 0 Ordered:02-May-2020 Michelle Singh MD Start : 02-May-2020 End : 01-Jun-2020 Inactive Enbrel 25 MG/0.5ML Subcutaneous Solution 0.5 Milliliter weekly for 30 days Quantity: 1 {Vial} Refills: 0 Ordered:01-Jun-2020 Michelle Singh MD Start : 18-Apr-2020 End : 18-May-2020 Inactive Comments:As per Rheum Ferrous Sulfate 27 MG Oral Tablet two times daily for 0 days Refills: 0 Ordered:14-Nov-2020 Roslyn Plummer Start : 07-Mar-2020 End : 14-Nov-2020 Inactive Ferrous Sulfate 325 (65 Fe) MG Oral Tablet 1 (one) Tablet three times daily for 30 days Quantity: 90 {Tablet} Refills: 3 Ordered:14-Nov-2020 Roslyn Plummer Start : 02-Sep-2020 End : 14-Nov-2020 Inactive HYDROcodone-Acetaminophen 7.5-325 MG Oral Tablet 1 (one) Tablet two times daily, as needed for 30 days Quantity: 60 {Tablet} Refills: 0 Ordered:13-Oct-2020 Michelle Singh MD Start : 13-Oct-2020 End : 12-Nov-2020 Inactive Comments:Medication taken as needed. note dose change hydrOXYzine HCl 10 MG Oral Tablet 1 (one) Tablet at bedtime for 30 days Quantity: 30 {Tablet} Refills: 0 Ordered:14-Nov-2020 Roslyn Plummer Start : 02-May-2020 End : 14-Nov-2020 Inactive Ketotifen Fumarate 0.025 % Ophthalmic Solution 1 (one) Metric Drop twice a day for 10 days Quantity: 1 {Milliliter} Refills: 1 Ordered:13-Oct-2020 Nubia Hammonds Start : 02-May-2020 End : 13-Oct-2020 Inactive Lactulose 10 GM/15ML Oral Solution 10 Milliliter daily for 30 days Quantity: 300 {Milliliter} Refills: 0 Ordered:14-Nov-2020 Roslyn Plummer Start : 07-Mar-2020 End : 14-Nov-2020 Inactive Ondansetron HCl 4 MG Oral Tablet 4 mg every six hours, as needed for 0 days Refills: 0 Ordered:13-Oct-2020 Nubia Hammonds Start : 07-Mar-2020 End : 13-Oct-2020 Inactive Comments:Medication taken as needed. predniSONE 20 MG Oral Tablet 2 (two) Tablet daily for 5 days Quantity: 10 {Tablet} Refills: 0 Ordered:01-Jun-2020 Michelle Singh MD Start : 01-Jun-2020 End : 06-Jun-2020 Inactive Allergies and Adverse Reactions Name Dates Details No Known Drug Allergies (Allergy) Onset: 02-May-2020 Status : Inactive Tetanus-Diphtheria Toxoids Td *TOXOIDS* (Allergy) Status: Active Procedures Procedure Dates Details VACCINATION, INFLUENZA (G0008) Date: 10-Apr-2021 Completed 10-Apr-2021 INTRAMUSCULAR ADMINISTRATION OF 0.5 ML DOSE Date: 10-Apr-2021 Completed 10-Apr-2021 OF PRESERVATIVE-FREE QUADRIVALENT SPLIT VIRUS INFLUENZA VACCINE (41733) VENIPUNCTURE FOR BLOOD TEST (82459) Date: 13-Oct-2020 Comp leted 13-Oct-2020 IMMUNIZ ADMNIN, 1 VAC, SNGL/COMBO (70323) Date: 02-May-2020 Completed 02-May-2020 INTRAMUSCULAR ADMINISTRATION OF 0.5 ML DOSE Date: 0 Completed 02-May-2020 OF PRESERVATIVE-FREE QUADRIVALENT SPLIT VIRUS INFLUENZA VACCINE (48283) SKIN TEST; TUBERCULOSIS, INTRADERMAL (55017) Date: 0 Completed 18-Apr-2020 Breast Biopsy - Left Completed Cataract Extraction-Bilateral Completed Dilation and Curettage of Uterus Complet ed Gallbladder Surgery - Laparoscopic Compl eted Hemorrhoidectomy Completed Spinal Surgery Completed Tubal Ligation Completed Immunization Name Dates Details Influenza vaccine, quadrivalent (IIV4), 0.5 mL on: 02-May-20 Comments: Site: Left DeltoidVIS Given: * Influenza - Inactivated (01/22/19)Administered 0.5mg IM left deltoid, patient tolerated it well. Lot #: [id number] Influenza vaccine, quadrivalent (IIV4), 0.5 mL on: Comments: Site: Left DeltoidVIS Given: * Influenza - Inactivated (01/22/19) Lot #: [id number] TB Skin Test, Intradermal on: 18-Apr-2020 Comments: Site : Left Lower ForearmManufacturer: [employer] [facility]: [id number] Lot #: [id number] Family History Unknown Family Member Name Dates Details Diabetes Mellitus Comments: Mother. Si ster. Status: Active Heart Disease Comments: Mother. Status: Active Social History Name Dates Details Caffeine use: Tea. Carbonated beverages. 3 servings/day. Status: Active Exercise: 5 x week. walking. Status: Act branden No alcohol use Status: Active No drug use Status: Active Seat Belt Use: Always uses seat belts. S tatus: Active Tobacco / smoke exposure: None. Status: Active Tobacco use: Former smoker. Status: Acti ve Smoking Status Name Dates Details Ex-smoker (finding) Vital Signs Date Test Result Details [id number] Body temperature 98.1 f Comments: Meth od: Oral Heart Rate 70 /min Comments: Pattern: R egular Respiratory rate 16 /min Comments: Pattern: U nlabored O2 SAT 92 % Comments: Room air Systolic blood pressure 115 mm[Hg] Comments: Patien t Position: Sitting; Cuff Location: Left Arm; Cuff Size: Standard Diastolic blood pressure 65 mm[Hg] Comments: Patie nt Position: Sitting; Cuff Location: Left Arm; Cuff Size: Standard Weight 109 lb Body height 59 in Body mass index (BMI) [Ratio] 22.02 kg/m2 Body surface area Derived from formula 1.42 m2 :50 Body temperature 97.5 f Comments: Metho d: Oral Heart Rate 71 /min Comments: Pattern: R egular Respiratory rate 18 /min Comments: Pattern: U nlabored O2 SAT 97 % Comments: Room air Systolic blood pressure 161 mm[Hg] Comments: Patien t Position: Sitting; Cuff Location: Left Arm; Cuff Size: Standard Diastolic blood pressure 78 mm[Hg] Comments: Patie nt Position: Sitting; Cuff Location: Left Arm; Cuff Size: Standard Weight 109.125 lb Body height 59 in Body mass index (BMI) [Ratio] 22.04 kg/m2 Body surface area Derived from formula 1.43 m2 :45 Body temperature 98.2 f Comments: Metho d: Oral Heart Rate 71 /min Comments: Pattern: R egular Respiratory rate 17 /min Comments: Pattern: U nlabored O2 SAT 95 % Comments: Room air Systolic blood pressure 168 mm[Hg] Comments: Patien t Position: Sitting; Cuff Location: Left Arm; Cuff Size: Standard Diastolic blood pressure 66 mm[Hg] Comments: Patie nt Position: Sitting; Cuff Location: Left Arm; Cuff Size: Standard Weight 112.125 lb Body height 59 in Body mass index (BMI) [Ratio] 22.65 kg/m2 Body surface area Derived from formula 1.44 m2 :29 Body temperature 97.6 f Heart Rate 63 /min Comments: Pattern: R egular Respiratory rate 18 /min Comments: Pattern: U nlabored O2 SAT 96 % Comments: Room air Systolic blood pressure 115 mm[Hg] Comments: Patien t Position: Sitting; Cuff Location: Left Arm; Cuff Size: Standard Diastolic blood pressure 63 mm[Hg] Comments: Patie nt Position: Sitting; Cuff Location: Left Arm; Cuff Size: Standard Weight 117.5 lb Body height 59 in Body mass index (BMI) [Ratio] 23.73 kg/m2 Body surface area Derived from formula 1.47 m2 :07 Body temperature 97.9 f Comments: Metho d: Oral Heart Rate 58 /min Comments: Pattern: R egular Respiratory rate 17 /min Comments: Pattern: U nlabored O2 SAT 95 % Comments: Room air Systolic blood pressure 157 mm[Hg] Comments: Patien t Position: Sitting; Cuff Location: Left Arm; Cuff Size: Standard Diastolic blood pressure 76 mm[Hg] Comments: Patie nt Position: Sitting; Cuff Location: Left Arm; Cuff Size: Standard Weight 120.5 lb Body height 59 in Body mass index (BMI) [Ratio] 24.34 kg/m2 Body surface area Derived from formula 1.49 m2 :19 Body temperature 98.2 f Comments: Metho d: Oral Heart Rate 71 /min Comments: Pattern: R egular Respiratory rate 18 /min Comments: Pattern: U nlabored O2 SAT 96 % Comments: Room air Systolic blood pressure 176 mm[Hg] Comments: Patien t Position: Sitting; Cuff Location: Left Arm; Cuff Size: Standard Diastolic blood pressure 71 mm[Hg] Comments: Patie nt Position: Sitting; Cuff Location: Left Arm; Cuff Size: Standard Weight 120.5 lb Body height 59 in Body mass index (BMI) [Ratio] 24.34 kg/m2 Body surface area Derived from formula 1.49 m2 :30 Body temperature 98.7 f Comments: Metho d: Oral Heart Rate 98 /min Comments: Pattern: R egular Respiratory rate 17 /min Comments: Pattern: U nlabored O2 SAT 98 % Comments: Room air Systolic blood pressure 134 mm[Hg] Comments: Patien t Position: Sitting; Cuff Location: Left Arm; Cuff Size: Standard Diastolic blood pressure 73 mm[Hg] Comments: Patie nt Position: Sitting; Cuff Location: Left Arm; Cuff Size: Standard Weight 120 lb Body height 59 in Body mass index (BMI) [Ratio] 24.24 kg/m2 Body surface area Derived from formula 1.48 m2 :19 Body temperature 98.6 f Comments: Metho d: Oral Heart Rate 71 /min Comments: Pattern: R egular Respiratory rate 18 /min Comments: Pattern: U nlabored O2 SAT 96 % Comments: Room air Systolic blood pressure 105 mm[Hg] Comments: Patien t Position: Sitting; Cuff Location: Left Arm; Cuff Size: Standard Diastolic blood pressure 48 mm[Hg] Comments: Patie nt Position: Sitting; Cuff Location: Left Arm; Cuff Size: Standard Weight 119.25 lb Body height 59 in Body mass index (BMI) [Ratio] 24.09 kg/m2 Body surface area Derived from formula 1.48 m2 :15 Respiratory rate 20 /min Comments: Bettie rn: Unlabored Weight 117.125 lb Body height 59 in Body mass index (BMI) [Ratio] 23.66 kg/m2 Body surface area Derived from formula 1.47 m2 :31 Body temperature 98.3 f Comments: Metho d: Oral Heart Rate 74 /min Comments: Pattern: R egular Respiratory rate 16 /min Comments: Pattern: U nlabored O2 SAT 95 % Comments: Room air Systolic blood pressure 131 mm[Hg] Comments: Patien t Position: Sitting; Cuff Location: Left Arm; Cuff Size: Standard Diastolic blood pressure 67 mm[Hg] Comments: Patie nt Position: Sitting; Cuff Location: Left Arm; Cuff Size: Standard Weight 117.125 lb Body height 59 in Body mass index (BMI) [Ratio] 23.66 kg/m2 Body surface area Derived from formula 1.47 m2 :33 Body temperature 97.7 f Comments: Metho d: Tympanic Heart Rate 69 /min Comments: Pattern: R egular Respiratory rate 16 /min Comments: Pattern: U nlabored O2 SAT 96 % Comments: Room air Systolic blood pressure 173 mm[Hg] Comments: Patien t Position: Sitting; Cuff Location: Left Arm; Cuff Size: Standard Diastolic blood pressure 68 mm[Hg] Comments: Patie nt Position: Sitting; Cuff Location: Left Arm; Cuff Size: Standard Weight 114.5 lb Body height 59 in Body mass index (BMI) [Ratio] 23.13 kg/m2 Body surface area Derived from formula 1.45 m2 :07 Body temperature 98 f Comments: Meth od: Oral Heart Rate 90 /min Comments: Pattern: R egular Respiratory rate 20 /min Comments: Pattern: U nlabored O2 SAT 96 % Comments: Room air Systolic blood pressure 169 mm[Hg] Comments: Patien t Position: Sitting; Cuff Location: Left Arm; Cuff Size: Standard Diastolic blood pressure 64 mm[Hg] Comments: Patie nt Position: Sitting; Cuff Location: Left Arm; Cuff Size: Standard Weight 112.125 lb Body height 59 in Body mass index (BMI) [Ratio] 22.65 kg/m2 Body surface area Derived from formula 1.44 m2 :29 Body temperature 98.1 f Comments: Metho d: Oral Heart Rate 71 /min Comments: Pattern: R egular Respiratory rate 18 /min Comments: Pattern: U nlabored O2 SAT 98 % Comments: Room air Systolic blood pressure 154 mm[Hg] Comments: Patien t Position: Sitting; Cuff Location: Left Arm; Cuff Size: Standard Diastolic blood pressure 70 mm[Hg] Comments: Patie nt Position: Sitting; Cuff Location: Left Arm; Cuff Size: Standard Weight 106.125 lb Body height 59 in Body mass index (BMI) [Ratio] 21.43 kg/m2 Body surface area Derived from formula 1.41 m2 :28 Body temperature 98.2 f Comments: Meth od: Oral Heart Rate 80 /min Comments: Pattern: R egular Respiratory rate 18 /min Comments: Pattern: U nlabored O2 SAT 98 % Comments: Room air Systolic blood pressure 176 mm[Hg] Comments: Patien t Position: Sitting; Cuff Location: Left Arm; Cuff Size: Standard Diastolic blood pressure 80 mm[Hg] Comments: Patie nt Position: Sitting; Cuff Location: Left Arm; Cuff Size: Standard Body height 59 in :20 Body temperature 98.4 f Comments: Meth od: Tympanic Heart Rate 68 /min Comments: Pattern: R egular Respiratory rate 16 /min Comments: Pattern: U nlabored O2 SAT 97 % Comments: Room air Systolic blood pressure 144 mm[Hg] Comments: Patien t Position: Sitting; Cuff Location: Left Arm; Cuff Size: Standard Diastolic blood pressure 75 mm[Hg] Comments: Patie nt Position: Sitting; Cuff Location: Left Arm; Cuff Size: Standard Weight 96.375 lb Body height 59 in Body mass index (BMI) [Ratio] 19.47 kg/m2 Body surface area Derived from formula 1.35 m2 :28 Body temperature 98.1 f Comments: Metho d: Oral Heart Rate 66 /min Comments: Pattern: R egular Respiratory rate 18 /min Comments: Pattern: U nlabored O2 SAT 97 % Comments: Room air Systolic blood pressure 122 mm[Hg] Comments: Patien t Position: Sitting; Cuff Location: Left Arm; Cuff Size: Standard Diastolic blood pressure 73 mm[Hg] Comments: Patie nt Position: Sitting; Cuff Location: Left Arm; Cuff Size: Standard Weight 97.2 lb :56 Body temperature 97.8 f Comments: Meth od: Tympanic Heart Rate 70 /min Comments: Pattern: R egular Respiratory rate 18 /min Comments: Pattern: U nlabored O2 SAT 98 % Comments: Room air Systolic blood pressure 135 mm[Hg] Comments: Patien t Position: Sitting; Cuff Location: Left Arm; Cuff Size: Standard Diastolic blood pressure 70 mm[Hg] Comments: Patie nt Position: Sitting; Cuff Location: Left Arm; Cuff Size: Standard Weight 96 lb :51 Body temperature 96.9 f Comments: Meth od: Tympanic Heart Rate 58 /min Comments: Pattern: R egular Respiratory rate 16 /min Comments: Pattern: U nlabored O2 SAT 98 % Comments: Room air Systolic blood pressure 142 mm[Hg] Comments: Naheed t Position: Sitting; Cuff Location: Left Arm; Cuff Size: Standard Diastolic blood pressure 65 mm[Hg] Comments: Riley nt Position: Sitting; Cuff Location: Left Arm; Cuff Size: Standard Weight 99 lb Body height 59 in Body mass index (BMI) [Ratio] 20.00 kg/m2 Body surface area Derived from formula 1.37 m2 Results Date Description Value Details 01-Aug-2020 URINALYSIS, AUTOMATED W/O MICRO Comments : Location Name: [facility] UA - UROBILINOGEN 0.2 {E.U./dL} (Normal) UA - APPEARANCE Slightly Cloudy (Normal) UA - BILIRUBIN Negative (Normal) UA - BLOOD Negative (Normal) UA - COLOR Light yellow (Normal) UA - GLUCOSE Negative (Normal) UA - KETONES Negative (Normal) UA - LEUKOCYTE ESTERASE Trace (Abnormal) UA - NITRITE Negative (Normal) UA - PH 6.0 (Normal) UA - PROTEIN Negative (Normal) UA - SPECIFIC GRAVITY 1.015 (Normal) Plan of Care Name Dates Details Instructions Follow up in 1 month Start: 10-Apr-2021 Instruction Type: Provider Instructions for Treatment Indication: Encounter for monitoring opioid maintenance ther apy Opioid Risks Start: 10-Apr-2021 Instruction Type: P atient Education Indication: Encounter for monitoring opioid maintenance ther apy Smoking Counseling Education Start: 10-Apr-2021 Instructio n Type: Patient Education Indication: RA (rheumatoid arthritis) Rheumatoid Arthritis Start: 10-Apr-2021 Instruction Type: Patient Education Indication: RA (rheumatoid arthritis) Follow up in 1 month Start: 10-Mar-2021 Instruction Type: Provider Instructions for Treatment Indication: Encounter for monitoring opioid maintenance ther apy Opioid Risks Start: 10-Mar-2021 Instruction Type: P atient Education Indication: Encounter for monitoring opioid maintenance ther apy Smoking Counseling Education Start: 10-Mar-2021 Instructio n Type: Patient Education Indication: Encounter for monitoring opioid maintenance ther apy Narcotic Drug Dependence *: opioid Start: 10-Mar-2021 Inst ruction Type: Patient Education Indication: Encounter for monitoring opioid maintenance ther apy Follow up in 1 month Start: 09-Feb-2021 Instruction Type: Provider Instructions for Treatment Indication: Encounter for monitoring opioid maintenance ther apy Opioid Risks Start: 09-Feb-2021 Instruction Type: P atient Education Indication: Encounter for monitoring opioid maintenance ther apy PDMP information checked and reviewed at office visit Star t: 09-Feb-2021 Instruction Type: Provider Instructions for Treatment Indication: Encounter for monitoring opioid maintenance ther apy Follow up in 1 month Start: 16-Jan-2021 Instruction Type: Provider Instructions for Treatment Indication: Encounter for monitoring opioid maintenance ther apy Opioid Risks Start: 16-Jan-2021 Instruction Type: P atient Education Indication: Encounter for monitoring opioid maintenance ther apy Low Back Pain: back pain Start: 13-Jan-2021 Instruction Ty pe: Patient Education Indication: Encounter for monitoring opioid maintenance ther apy Follow up in 1 month Start: 14-Dec-2020 Instruction Type: Provider Instructions for Treatment Indication: Encounter for monitoring opioid maintenance ther apy Opioid Risks Start: 14-Dec-2020 Instruction Type: P atient Education Indication: Encounter for monitoring opioid maintenance ther apy Narcotic Drug Dependence *: opioid Start: 14-Dec-2020 Inst ruction Type: Patient Education Indication: Encounter for monitoring opioid maintenance ther apy Follow up in 1 month Start: 14-Nov-2020 Instruction Type: Provider Instructions for Treatment Indication: Encounter for monitoring opioid maintenance ther apy Opioid Risks Start: 14-Nov-2020 Instruction Type: P atient Education Indication: Encounter for monitoring opioid maintenance ther apy PDMP information checked and reviewed at office visit Star t: 14-Nov-2020 Instruction Type: Provider Instructions for Treatment Indication: Encounter for monitoring opioid maintenance ther apy Follow up in 1 month Start: 13-Oct-2020 Instruction Type: Provider Instructions for Treatment Indication: Encounter for monitoring opioid maintenance ther apy Opioid Risks Start: 13-Oct-2020 Instruction Type: P atient Education Indication: Encounter for monitoring opioid maintenance ther apy Smoking Counseling Education Start: 13-Oct-2020 Instructio n Type: Patient Education Indication: Encounter for monitoring opioid maintenance ther apy Follow up in 1 month Start: 15-Sep-2020 Instruction Type: Provider Instructions for Treatment Indication: Encounter for monitoring opioid maintenance ther apy Opioid Risks Start: 15-Sep-2020 Instruction Type: P atient Education Indication: Encounter for monitoring opioid maintenance ther apy PDMP information checked and reviewed at office visit Star t: 15-Sep-2020 Instruction Type: Provider Instructions for Treatment Indication: Encounter for monitoring opioid maintenance ther apy Smoking Counseling Education Start: 15-Sep-2020 Instructio n Type: Patient Education Indication: Encounter for monitoring opioid maintenance ther apy Follow up in 1 month Start: 09-Aug-2020 Instruction Type: Provider Instructions for Treatment Indication: Encounter for monitoring opioid maintenance ther apy Opioid Risks Start: 09-Aug-2020 Instruction Type: P atient Education Indication: Encounter for monitoring opioid maintenance ther apy Smoking Counseling Education Start: 09-Aug-2020 Instructio n Type: Patient Education Indication: Encounter for monitoring opioid maintenance ther apy Follow up - Keep appt as scheduled Start: 01-Aug-2020 Inst ruction Type: Provider Instructions for Treatment Indication: Acute cystitis without hematuria Follow up in 1 month Start: 11-Jul-2020 Instruction Type: Provider Instructions for Treatment Indication: Encounter for monitoring opioid maintenance ther apy Opioid Risks Start: 11-Jul-2020 Instruction Type: P atient Education Indication: Encounter for monitoring opioid maintenance ther apy PDMP information checked and reviewed at office visit Star t: 11-Jul-2020 Instruction Type: Provider Instructions for Treatment Indication: Encounter for monitoring opioid maintenance ther apy Follow up in 1 month Start: 07-Jun-2020 Instruction Type: Provider Instructions for Treatment Indication: Encounter for monitoring opioid maintenance ther apy Opioid Risks Start: 07-Jun-2020 Instruction Type: P atient Education Indication: Encounter for monitoring opioid maintenance ther apy PDMP information checked and reviewed at office visit Star t: 07-Jun-2020 Instruction Type: Provider Instructions for Treatment Indication: Encounter for monitoring opioid maintenance ther apy Follow up in 1 month Start: 02-May-2020 Instruction Type: Provider Instructions for Treatment Indication: Encounter for monitoring opioid maintenance ther apy Opioid Risks Start: 02-May-2020 Instruction Type: P atient Education Indication: Encounter for monitoring opioid maintenance ther apy PDMP information checked and reviewed at office visit Star t: 02-May-2020 Instruction Type: Provider Instructions for Treatment Indication: Encounter for monitoring opioid maintenance ther apy Follow up as needed Start: 19-Apr-2020 Instruction Type: P rovider Instructions for Treatment Indication: RA (rheumatoid arthritis) Follow up as needed Start: 18-Apr-2020 Instruction Type: P rovider Instructions for Treatment Indication: GERD without esophagitis Follow up in 1 month Start: 01-Apr-2020 Instruction Type: Provider Instructions for Treatment Indication: Encounter for monitoring opioid maintenance ther apy Opioid Risks Start: 01-Apr-2020 Instruction Type: P atient Education Indication: Encounter for monitoring opioid maintenance ther apy PDMP information checked and reviewed at office visit Star t: 01-Apr-2020 Instruction Type: Provider Instructions for Treatment Indication: Encounter for monitoring opioid maintenance ther apy Follow up - Keep appt as scheduled Start: 07-Mar-2020 Inst ruction Type: Provider Instructions for Treatment Indication: Anemia, deficiency Planned Observations DRUG TEST PRSMV DIR OPT OBS ([id number])Indic ation: Encounter for monitoring opioid maintenance therapy On: [id number] Request HGB (HEMOGLOBIN) ([id number])Indication: Anemia, deficiency On: :55 Request DRUG TEST PRSMV DIR OPT OBS ([id number])Indic ation: Encounter for monitoring opioid maintenance therapy On: [id number]-[id number]:58 Request DRUG TEST PRSMV DIR OPT OBS ([id number])Indic ation: Encounter for monitoring opioid maintenance therapy On: [id number]:12 Request THYROXINE FREEIndication: Hypothyroidism On: :40 Request TSH (THYROID STIMULATING HORMONE) ([id number])Indication: H ypothyroidism On: :40 Request DRUG TEST PRSMV DIR OPT OBS ([id number])Indic ation: Encounter for monitoring opioid maintenance therapy On: [id number]-Mvo-[id number]:47 Request HGB (HEMOGLOBIN) ([id number])Indication: Anemia, deficiency On: 114:47 Request DRUG TEST PRSMV DIR OPT OBS ([id number])Indic ation: Encounter for monitoring opioid maintenance therapy On: [id number] Request URINE CULTURE ([id number])Indication: Acute cystitis withou t hematuria On: [id number]-Tmc-[id number]:22 Request Victor Virus/Covid-19 ([id number])Indication: Suspected COV ID-19 virus infection On: [id number] Request HGB (HEMOGLOBIN) ([id number])Indication: Anemia, deficiency On: 2 [id number]-Mcl-[id number]:25 Request Planned Encounters Medical; Office Visit 20 - 1 month f/u On: 10-May-2021 10:20 [facility] Michelle Singh MD Planned Procedures SMOKING CESSATION COUNSELING FOR 3 TO 10 MINUTES ([id number])By: On: 10-Apr-2021 Intent Marcie Bee CPAP (CONT POS AIRWAY PRESS) ([id number])By: Michelle Singh MD On: 09-Jan-2021 Intent CPAP TITRATION ([id number])By: Michelle Singh MD On: 09-Jan-2021 Intent SCREENING FOR OBSTRUCTIVE SLEEP APNEA ([id number]) {In Lab Sleep On: 14-Dec-2020 Intent Study}By: Michelle Singh MD Instructions Name Dates Details Verified Opioid Agreement Start: 10-Apr-2021 Instruction T ype: Provider Instructions for Treatment Indication: RA (rheumatoid arthritis) Follow Dynadec Start: 10-Apr-2021 Instruction Type: P atient Education Indication: RA (rheumatoid arthritis) How to Access Health Information Online using Patient Portal and [employer] Apps Start: 10-Apr-2021 Instruction Type: Patient Education Indication: RA (rheumatoid arthritis) Verified Opioid Agreement Start: 10-Apr-2021 Instruction T ype: Provider Instructions for Treatment Indication: Encounter for monitoring opioid maintenance ther apy PDMP information checked Start: 10-Apr-2021 Instruction Ty pe: Provider Instructions for Treatment Indication: Encounter for monitoring opioid maintenance ther apy Follow Dynadec Start: 10-Mar-2021 Instruction Type: P atient Education Indication: Encounter for monitoring opioid maintenance ther apy How to Access Health Information Online using Patient Portal and [employer] Apps Start: 10-Mar-2021 Instruction Type: Patient Education Indication: Encounter for monitoring opioid maintenance ther apy Verified Opioid Agreement Start: 10-Mar-2021 Instruction T ype: Provider Instructions for Treatment Indication: Encounter for monitoring opioid maintenance ther apy PDMP information checked Start: 10-Mar-2021 Instruction Ty pe: Provider Instructions for Treatment Indication: Encounter for monitoring opioid maintenance ther apy Verified Opioid Agreement Start: 09-Feb-2021 Instruction T ype: Provider Instructions for Treatment Indication: Encounter for monitoring opioid maintenance ther apy Verified Opioid Agreement Start: 09-Feb-2021 Instruction T ype: Provider Instructions for Treatment Indication: RA (rheumatoid arthritis) Verified Opioid Agreement Start: 13-Jan-2021 Instruction T ype: Provider Instructions for Treatment Indication: Encounter for monitoring opioid maintenance ther apy Follow Dynadec Start: 13-Jan-2021 Instruction Type: P atient Education Indication: Encounter for monitoring opioid maintenance ther apy How to Access Health Information Online using Patient Portal and [employer] Apps Start: 13-Jan-2021 Instruction Type: Patient Education Indication: Encounter for monitoring opioid maintenance ther apy Verified Opioid Agreement Start: 14-Dec-2020 Instruction T ype: Provider Instructions for Treatment Indication: Encounter for monitoring opioid maintenance ther apy Follow Health Start: 14-Dec-2020 Instruction Type: P atient Education Indication: Encounter for monitoring opioid maintenance ther apy How to Access Health Information Online using Patient Portal and [employer] Apps Start: 14-Dec-2020 Instruction Type: Patient Education Indication: Encounter for monitoring opioid maintenance ther apy Verified Opioid Agreement Start: 14-Nov-2020 Instruction T ype: Provider Instructions for Treatment Indication: Encounter for monitoring opioid maintenance ther apy Follow Health Start: 13-Oct-2020 Instruction Type: P atient Education Indication: Encounter for monitoring opioid maintenance ther apy How to Access Health Information Online using Patient [employer] and [employer] Apps Start: 13-Oct-2020 Instruction Type: Patient Education Indication: Encounter for monitoring opioid maintenance ther apy Verified Opioid Agreement Start: 13-Oct-2020 Instruction T ype: Provider Instructions for Treatment Indication: Encounter for monitoring opioid maintenance ther apy Follow Health Start: 15-Sep-2020 Instruction Type: P atient Education Indication: Encounter for monitoring opioid maintenance ther apy How to Access Health Information Online using Patient [employer] and [employer] Apps Start: 15-Sep-2020 Instruction Type: Patient Education Indication: Encounter for monitoring opioid maintenance ther apy Verified Opioid Agreement Start: 15-Sep-2020 Instruction T ype: Provider Instructions for Treatment Indication: Encounter for monitoring opioid maintenance ther apy Follow Health Start: 09-Aug-2020 Instruction Type: P atient Education Indication: Encounter for monitoring opioid maintenance ther apy How to Access Health Information Online using Patient [employer] and [employer] Apps Start: 09-Aug-2020 Instruction Type: Patient Education Indication: Encounter for monitoring opioid maintenance ther apy Verified Opioid Agreement Start: 09-Aug-2020 Instruction T ype: Provider Instructions for Treatment Indication: Encounter for monitoring opioid maintenance ther apy Verified Opioid Agreement Start: 11-Jul-2020 Instruction T ype: Provider Instructions for Treatment Indication: Encounter for monitoring opioid maintenance ther apy Follow Health Start: 11-Jul-2020 Instruction Type: P atient Education Indication: GERD without esophagitis How to Access Health Information Online using Patient Portal and [employer] Apps Start: 11-Jul-2020 Instruction Type: Patient Education Indication: GERD without esophagitis Verified Opioid Agreement Start: 07-Jun-2020 Instruction T ype: Provider Instructions for Treatment Indication: Encounter for monitoring opioid maintenance ther apy Verified Opioid Agreement Start: 02-May-2020 Instruction T ype: Provider Instructions for Treatment Indication: Encounter for monitoring opioid maintenance ther apy Verified Opioid Agreement Start: 01-Apr-2020 Instruction T ype: Provider Instructions for Treatment Indication: Encounter for monitoring opioid maintenance ther apy Encounters Review On: 26-Apr-2021 10:33 [facility] No Charge Visit On: 25-Apr-2021 15:00 Encounter Reason: sick - Patient is here for a sick visit. Daughter called and stated her mother has been sick and does not want others to know. States she is weak, fatigue, not eating, shutting down from everyone, diarrhea, vomiting, sore throat. End: 26-Apr-2021 8:51 [facility] Office Visit On: 10-Apr-2021 10:40 Encounter Reason: Follow Up - Patient is here for a routine follow up for medication. Vital signs are within normal range. UDS was done this month. Encounter Diagnosis: Encounter for monitoring opioid maintenance therapy, RA (rheumatoid arthritis), End: 10-Apr-2021 11:20 HTN (hypertension), benign, Fluarix vacc ination ([id number]) (Renamed from Flu vaccine need) [facility] Office Visit On: 10-Mar-2021 10:35 Encounter Reason: Follow Up - Patient is here for a routine follow up for medication refills. Vital signs are within normal range. Encounter Diagnosis: Encounter for monitoring opioid maintenance therapy, RA (rheumatoid arthritis), Anemia, deficiency End: 10-Mar-2021 13:15 , Nausea, Decreased appetite, GERD without esophagitis [facility] Office Visit On: 09-Feb-2021 11:10 Encounter Reason: Follow Up - Patient is here for a routine follow for medication refills. Vital signs are within normal range. She is allergic to tetanus.Encounter Diagnosis: RA (rheumatoid arthritis), Uterine bleeding, HTN (hypertension), benign End: 09-Feb-2021 14:49 , Encounter for monitoring opioid maintenance therapy [facility] Office Visit On: 13-Jan-2021 10:40 Encounter Reason: Monthly Med Refill - H ere for monthly med refill, no new complaints at this time. Encounter Diagnosis: RA (rheumatoid arthritis), Encounter for monitoring opioid maintenance therapy, Hypothyroidism, Restless leg, End: 16-Jan-2021 10:08 HTN (hypertension), benign [facility] No Charge Visit On: 09-Jan-2021 9:34 Encounter Diagnosis: Severe obstructive sleep apnea En d: 09-Jan-2021 9:37 [facility] Med Refill On: 15-Dec-2020 9:08 Encounter Diagnosis: HTN (hypertension), benign End: 9:12 [facility] Office Visit On: 14-Dec-2020 13:09 Encounter Reason: Monthly Med Refill - P atient here for monthly medication refill, has complaint of bilateral hand pain, neck pain, and back pain. Would also like to discuss the possibility of having sleep apnea. UDS done in office today. End: 14-Dec-2020 15:15 Encounter Diagnosis: Encounter for monit oring opioid maintenance therapy, RA (rheumatoid arthritis), GERD without esophagitis, Snoring, HTN (hypertension), benign [facility] Office Visit On: 14-Nov-2020 13:30 Encounter Diagnosis: RA (rheumatoid arth ritis), HTN (hypertension), benign, Hypothyroidism, Uterine prolapse, Encounter for monitoring opioid maintenance therapy End: 14-Nov-2020 14:15 [facility] Office Visit On: 13-Oct-2020 14:13 Encounter Reason: Follow Up - Patient is here for a routine follow for medication refills. Vital signs are within normal range. Wants to know when her thyroid was last checked. Encounter Diagnosis: End: 13-Oct-2020 17:17 Encounter for monitoring opioid maintena nce therapy, RA (rheumatoid arthritis), Hypothyroidism, Uterine bleeding [facility] No Charge Visit On: 16-Sep-2020 9:58 Encounter Diagnosis: Nausea End: 16-Sep-2020 10:03 [facility] Office Visit On: 15-Sep-2020 14:31 Encounter Reason: Follow Up - Patient is here for a routine follow up. Needs refills on medications. Vital signs are within normal range. Encounter Diagnosis: RA (rheumatoid arthritis), Encounter for monitoring opioid maintenance therapy, End: 15-Sep-2020 16:58 Anemia, deficiency, HTN (hypertension), benign, Uterin e bleeding [facility] Office Visit On: 09-Aug-2020 15:33 Encounter Reason: Follow Up - Patient is here for a routine follow up. Needs refills on medications. UDS was done this month. Encounter Diagnosis: RA (rheumatoid arthritis), Encounter for monitoring opioid maintenance therapy, End: 09-Aug-2020 16:26 HTN (hypertension), benign [facility] Office Visit On: 01-Aug-2020 15:07 Encounter Reason: UTI? - Patient is here for a UTI. Urinating on herself, OB thinks she may have a UTI but could not drive to [place]. Encounter Diagnosis: Acute cystitis without hematuria End: 01-Aug-2020 15:53 [facility] Office Visit On: 11-Jul-2020 15:28 Encounter Reason: Follow Up - Patient is here for a routine follow up. Needs refills on medications. Vital signs are within normal range. Encounter Diagnosis: RA (rheumatoid arthritis), Hypothyroidism, GERD without esophagitis, End: 11-Jul-2020 16:25 Encounter for monitoring opioid maintenance therapy [facility] Office Visit On: 07-Jun-2020 10:28 Encounter Reason: Follow Up - Patient is here for a routine follow up. Needs refills on medications. Patient does c/o with coughing, sneezing, headache, scratchy throat. Had iron infusion on 05/16/2020.Encounter Diagnosis: RA (rheumatoid arthritis), End: 07-Jun-2020 11:16 Rhinosinusitis, Suspected COVID-19 virus infection, Encounter for monitoring opioid maintenance therapy [facility] No Charge Visit On: 01-Jun-2020 14:52 Encounter Diagnosis: RA (rheumatoid arthritis) End: 14:56 [facility] No Charge Visit On: 16-May-2020 8:51 Encounter Diagnosis: RA (rheumatoid arthritis) End: May-2020 10:23 [facility] Office Visit On: 02-May-2020 13:20 Encounter Reason: Follow Up - Patient is here for a routine follow up. Needs refills on medications. Vital signs are within normal range.Encounter Diagnosis: RA (rheumatoid arthritis), Fluarix vaccination ([id number]) (Renamed from Flu vaccine need), End: 02-May-2020 16:01 Allergic conjunctivitis and rhinitis, Ge neralized pruritus, HLD (hyperlipidemia), Encounter for monitoring opioid maintenance therapy [facility] Office Visit On: 18-Apr-2020 13:28 Encounter Reason: Hospital F/U - Patient is here today for a hospital follow up. Patient states she was in the ER on 04/11/20. Pt went in because she was in excruciating pain.Encounter Diagnosis: RA (rheumatoid arthritis), Anemia, deficiency, End: 19-Apr-2020 14:23 Hypothyroidism, GERD without esophagitis , HTN (hypertension), benign, Hospital discharge follow-up [facility] Office Visit On: 01-Apr-2020 10:55 Encounter Reason: Follow Up - Patient is here for a follow up. Needs refills on medications. C/o with shoulders, knees, neck, hands, and hips. ER yesterday for V/D and not eating. Encounter Diagnosis: RA (rheumatoid arthritis), Restless leg, End: 01-Apr-2020 12:23 Decreased appetite, Anemia, deficiency, Encounter for monitoring opioid maintenance therapy [facility] Med Refill On: 15-Mar-2020 11:47 Encounter Diagnosis: Iron deficiency ane derek, unspecified iron deficiency anemia type End: 15-Mar-2020 11:49 [facility] Office Visit On: 03-Mar-2020 14:30 Encounter Reason: Establishing care. - P atient is here to establish care. Vital signs are within normal range. Patient voices no concerns at this time. Encounter Diagnosis: Cirrhosis, nonalcoholic, Anemia, deficiency, End: 07-Mar-2020 9:34 Iron deficiency anemia, unspecified iron deficiency anemia type, CAD (coronary artery disease), RA (rheumatoid arthritis), HTN (hypertension), benign, Hypothyroidism, HLD (hyperlipidemia), GERD without esophagitis, Restless leg, Insomnia, controlled [facility] Payers MedicareChamp VA ProgramFrance Carroll; essecne guarantor
[2021-04-26] MEDS ORDERED: ZOFRAN INJ 4 MG VIAL IVP PRN (11:11)
[2021-04-26] MEDS: NORCO 7.5/325 MG TAB PO PRN ×2 (11:32→21:56)
--- NOTE | 2021-04-26 13:29 | PCM.PROG ---
Progress Note Progress Note for Day of Date of Exam: 04/26/21 Subjective Subjective: Patient seen at bedside, no events overnight. She states she feels slightly better. She has been NPO and is scheduled for EGD this AM. Denies any vomiting or diarrhea overnight. Labs reviewed CXR: no acute process Plan: follow up EGD results, continue hydration with NS, continue PPI and zofran. Resume home medications. Monitor AM labs. Past Medical Family Social History Past Med/Fam/Surg Hx: No changes since H&P Allergies: Allergies Tetanus Vaccines and Toxoid Allergy (Verified 03/31/20 07:36) Vital Signs and I&O's Vital Signs: Temperature 97.7 F Pulse Rate [Right Radial] 94 Respiratory Rate 18 Blood Pressure [Right Arm] 142/61 O2 Sat by Pulse Oximetry 97 Intake and Output: Intake & Output 04/23/21 04/24/21 04/25/21 04/26/21 23:59 23:59 23:59 23:59 Intake Total 1420 / 1420 50 / 50 Balance 1420 / 1420 50 / 50 Physical Exam Oriented: Normal Ear: Normal Nose: Normal Throat: Dry Cardiovascular: Normal Auscultation: Bowel Sounds: Normal Palpation: Normal Tenderness: Normal Skin: Decreased Turgur Musculoskeletal: Back:Paraspinous and Motor Deficit Mood Description: Calm Affect: Normal Speech Pattern: Clear and Appropriate Laboratory and Diagnostics Result Diagrams: 04/26/21 04:23 04/26/21 04:23 Labs: Laboratory WBC 9.9 X10^3/uL (3.6-10.0) 04/26/21 04:23 RBC 3.74 X10^6/uL (3.5-5.4) 04/26/21 04:23 Hgb 11.1 g/dL (12.0-16.0) L 04/26/21 04:23 Hct 33.5 % (36.0-47.0) L 04/26/21 04:23 MCV 89.4 fL (80.0-100.0) 04/26/21 04:23 MCH 29.7 pg (27.0-34.0) 04/26/21 04:23 MCHC 33.2 g/dL (33.0-35.0) 04/26/21 04:23 RDW 14.3 % (11.6-16.5) 04/26/21 04:23 Plt Count 275 X10^3/uL (150.0-450.0) 04/26/21 04:23 MPV 8.2 fL (7.4-11.0) 04/26/21 04:23 Neut % (Auto) 75.7 % (42.0-75.0) H 04/26/21 04:23 Lymph % (Auto) 11.6 % (21.0-51.0) L 04/26/21 04:23 [place] % (Auto) 9.3 % (0.0-13.0) 04/26/21 04:23 Eos % (Auto) 2.8 % (0.9-2.9) 04/26/21 04:23 Baso % (Auto) 0.6 % (0.2-1.0) 04/26/21 04:23 Neut # (Auto) 7.5 x10^3/uL (2.2-4.8) H 04/26/21 04:23 Lymph # (Auto) 1.2 X10^3/uL (1.3-2.9) L 04/26/21 04:23 [place] # (Auto) 0.9 x10^3/uL (0.3-0.8) H 04/26/21 04:23 Eos # (Auto) 0.3 x10^3/uL (0.0-0.2) H 04/26/21 04:23 Baso # (Auto) 0.1 X10^3/uL (0.0-0.1) 04/26/21 04:23 Absolute Nucleated RBC 0.0 /100WBC 04/26/21 04:23 Sodium 136 mmol/L (136-145) 04/26/21 04:23 Corrected Sodium TNP 04/26/21 04:23 Potassium 4.8 mmol/L (3.5-5.1) 04/26/21 04:23 Chloride 105 mmol/L (98-107) 04/26/21 04:23 Carbon Dioxide 22.7 mmol/L (21-32) 04/26/21 04:23 BUN 29 mg/dL (7-18) H 04/26/21 04:23 Creatinine 2.38 mg/dL (0.55-1.02) H 04/26/21 04:23 Est GFR (MDRD) Af Amer 25 (>60) L 04/26/21 04:23 Est GFR (MDRD) Non-Af 21 (>60) L 04/26/21 04:23 Glucose 78 mg/dL (65-99) 04/26/21 04:23 Calcium 8.2 mg/dL (8.5-10.1) L 04/26/21 04:23 Corrected Calcium 8.9 mg/dL (8.5-10.1) 04/26/21 04:23 Magnesium 1.7 mg/dL (1.7-2.9) 04/26/21 04:23 Total Bilirubin 0.30 mg/dL (0.2-1.0) 04/26/21 04:23 AST 12 Units/L (15-37) L 04/26/21 04:23 ALT 11 Units/L (12-78) L 04/26/21 04:23 Alkaline Phosphatase 73 Units/L (46-116) 04/26/21 04:23 Total Protein 6.0 g/dL (6.4-8.2) L 04/26/21 04:23 Albumin 3.1 g/dL (3.4-5.0) L 04/26/21 04:23 Globulin 2.9 g/dL (2.5-4.5) 04/26/21 04:23 Albumin/Globulin Ratio 1.1 Ratio (1.1-2.1) 04/26/21 04:23 SARS CoV-2 RNA Rapid FELIZ Negative (NEGATIVE) 04/25/21 17:05 Tissue Pathology To follow 04/26/21 08:40 Plan (1) Acute dehydration: Status: Acute (2) Acute on chronic kidney failure: Status: Acute Qualifiers: Acute renal failure type: unspecified Chronic kidney disease stage: unspecified stage Qualified Code(s): N17.9 - Acute kidney failure, unspecified; N18.9 - Chronic kidney disease, unspecified (3) Dysphagia: Status: Acute Qualifiers: Dysphagia type: oropharyngeal phase Qualified Code(s): R13.12 - Dysphagia, oropharyngeal phase (4) Generalized weakness: Status: Acute (5) Diarrhea: Status: Inactive Qualifiers: Diarrhea type: unspecified type Qualified Code(s): R19.7 - Diarrhea, unspecified (6) Iron deficiency anemia: Status: Acute Qualifiers: Iron deficiency anemia type: inadequate dietary iron intake Qualified Code(s): D50.8 - Other iron deficiency anemias (7) Anemia: Status: Acute Qualifiers: Anemia type: unspecified type Qualified Code(s): D64.9 - Anemia, unspecified (8) Rheumatoid arthritis: Status: Acute Qualifiers: Rheumatoid arthritis location: multiple sites Rheumatoid factor presence: unspecified presence Qualified Code(s): M06.9 - Rheumatoid arthritis, unspecified (9) Esophageal dysmotility: Status: Acute (10) Hypothyroidism: Status: Chronic Qualifiers: Hypothyroidism type: unspecified Qualified Code(s): E03.9 - Hypothyroidism, unspecified
[2021-04-26] MEDS: PROTONIX INJ 40 MG VIAL IVP SCH ×2 (17:39→21:58)
[2021-04-26] MEDS: REQUIP PO SCH (21:46)
[2021-04-26] MEDS: REMERON PO SCH (21:46)
[2021-04-27] MEDS: NS 1,000 ML IV 1,000 ML IV SCH ×3 (02:26→10:00)
[2021-04-27 05:05] VITALS: BP 186/84
[2021-04-27 06:07] LABS: BASOPHILS # (AUTO) 0.1 X10^3/uL (0.0-0.1); BASOPHILS % (AUTO) 0.7 % (0.2-1.0); EOSINOPHILS # (AUTO) 0.2 x10^3/uL (0.0-0.2); EOSINOPHILS % (AUTO) 3.1 % (0.9-2.9); HEMATOCRIT 32.3 % (36.0-47.0); HEMOGLOBIN 10.6 g/dL (12.0-16.0); LYMPHOCYTES # (AUTO) 0.9 X10^3/uL (1.3-2.9); LYMPHOCYTES % (AUTO) 10.9 % (21.0-51.0); MEAN CORPUSCULAR HEMOGLOBIN 29.7 pg (27.0-34.0); MEAN CORPUSCULAR VOLUME 90.1 fL (80.0-100.0); MEAN PLATELET VOLUME 8.1 fL (7.4-11.0); MONOCYTES # (AUTO) 0.7 x10^3/uL (0.3-0.8); MONOCYTES % (AUTO) 8.6 % (0.0-13.0); NEUTROPHILS # (AUTO) 6.1 x10^3/uL (2.2-4.8); NEUTROPHILS % (AUTO) 76.7 % (42.0-75.0); PLATELET COUNT 240 X10^3/uL (150.0-450.0); RED BLOOD COUNT 3.58 X10^6/uL (3.5-5.4); RED CELL DISTRIBUTION WIDTH 14.4 % (11.6-16.5)
[2021-04-27 06:22] LABS: ALANINE AMINOTRANSFERASE 10 Units/L (12-78); ALBUMIN 2.9 g/dL (3.4-5.0); ALKALINE PHOSPHATASE 81 Units/L (46-116); ASPARTATE AMINO TRANSFERASE 13 Units/L (15-37); BLOOD UREA NITROGEN 18 mg/dL (7-18); CALCIUM 8.2 mg/dL (8.5-10.1); CARBON DIOXIDE 21.2 mmol/L (21-32); CHLORIDE 109 mmol/L (98-107); COR CA(FOR HYPOALB) 9.1 mg/dL (8.5-10.1); CREATININE 1.29 mg/dL (0.55-1.02); MAGNESIUM 2.5 mg/dL (1.7-2.9); SODIUM 138 mmol/L (136-145); eGFR NON BLACK RACES 43 (>60)
[2021-04-27] MEDS ORDERED: NORVASC TAB 5 MG PO SCH (09:00)
[2021-04-27] MEDS ORDERED: SYNTHROID 88 mcg TAB PO SCH (09:00)
[2021-04-27] MEDS ORDERED: ASPIRIN EC 81 MG PO SCH (09:00)
--- NOTE | 2021-04-27 09:19 | W.DIS.FURT ---
Summary of Discharge Discharge Summary of Date Date of Exam: 04/27/21 Admission Date Date of Admission: 04/25/21 Admission Diagnosis Hospital Course: Ms Carroll is a 75y/o female with multiple comorbidities presented to the clinic with generalized weakness and poor oral intake. Patient has been feeling this way for a couple weeks. She has not maite able to tolerate oral intake. She states solid foods get stuck while swallowing. She also reports intermittent epigastric pain. She has also been having diarrhea which has slowed down some. Denies blood in stool. She has been taking her medications. She reports severe weakness. Patient had an EGD last year gastritis and esophageal dysmotility disorder. She was admitted for poor oral intake, dehydration, dysphagia. Her labs showed significant elevation of Creatinine. Patient was started on IV fluids, anti- emetics. Dr Emery was consulted and planned to do EGD the next morning. EGD showed gastritis , no ulcers or neoplasm. Patient recurrent dysphagia and Sx due to esophageal dysmotility disorder. Patient was able to tolerate PO intake. Her labs were monitored daily and electrolytes replaced as needed. Patient was feeling a lot better and stable for discharge. She will follow up with PCP and Dr Emery as scheduled. Vital Signs: Vital Signs (72 hours) 04/25/21 18:16 04/25/21 20:00 04/25/21 23:55 Temperature 97.5 F L 97.5 F L 98.3 F Pulse Rate [Right Radial] 70 74 84 Respiratory Rate 18 19 20 Blood Pressure [Right Arm] 174/83 122/56 142/65 O2 Sat by Pulse Oximetry 97 98 97 04/26/21 04:00 04/26/21 08:00 04/26/21 09:00 Temperature 98.5 F 98.3 F 98.2 F Pulse Rate [Right Radial] 76 86 77 Respiratory Rate 20 18 18 Blood Pressure [Right Arm] 118/58 133/62 122/60 O2 Sat by Pulse Oximetry 97 96 98 04/26/21 09:15 04/26/21 09:30 04/26/21 09:45 Temperature Pulse Rate [Right Radial] 80 78 74 Respiratory Rate 18 20 18 Blood Pressure [Right Arm] 120/60 132/71 122/58 O2 Sat by Pulse Oximetry 98 98 97 04/26/21 10:00 04/26/21 11:32 04/26/21 12:00 Temperature 98.0 F 97.7 F Pulse Rate [Right Radial] 65 94 H Respiratory Rate 18 18 18 Blood Pressure [Right Arm] 139/64 142/61 O2 Sat by Pulse Oximetry 96 97 04/26/21 12:32 04/26/21 16:00 04/26/21 20:00 Temperature 97.8 F 98.5 F Pulse Rate [Right Radial] 86 77 Respiratory Rate 18 18 18 Blood Pressure [Right Arm] 115/57 135/67 O2 Sat by Pulse Oximetry 96 98 04/26/21 21:56 04/26/21 22:56 04/27/21 00:00 Temperature 98.3 F Pulse Rate [Right Radial] 58 L Respiratory Rate 20 18 19 Blood Pressure [Right Arm] 154/70 O2 Sat by Pulse Oximetry 97 04/27/21 04:00 Temperature 98.3 F Pulse Rate [Right Radial] 71 Respiratory Rate 22 Blood Pressure [Right Arm] 186/84 O2 Sat by Pulse Oximetry 98 Labs: Laboratory Last Values WBC 8.0 X10^3/uL (3.6-10.0) 04/27/21 05:12 RBC 3.58 X10^6/uL (3.5-5.4) 04/27/21 05:12 Hgb 10.6 g/dL (12.0-16.0) L 04/27/21 05:12 Hct 32.3 % (36.0-47.0) L 04/27/21 05:12 MCV 90.1 fL (80.0-100.0) 04/27/21 05:12 MCH 29.7 pg (27.0-34.0) 04/27/21 05:12 MCHC 33.0 g/dL (33.0-35.0) 04/27/21 05:12 RDW 14.4 % (11.6-16.5) 04/27/21 05:12 Plt Count 240 X10^3/uL (150.0-450.0) 04/27/21 05:12 MPV 8.1 fL (7.4-11.0) 04/27/21 05:12 Neut % (Auto) 76.7 % (42.0-75.0) H 04/27/21 05:12 Lymph % (Auto) 10.9 % (21.0-51.0) L 04/27/21 05:12 [place] % (Auto) 8.6 % (0.0-13.0) 04/27/21 05:12 Eos % (Auto) 3.1 % (0.9-2.9) H 04/27/21 05:12 Baso % (Auto) 0.7 % (0.2-1.0) 04/27/21 05:12 Neut # (Auto) 6.1 x10^3/uL (2.2-4.8) H 04/27/21 05:12 Lymph # (Auto) 0.9 X10^3/uL (1.3-2.9) L 04/27/21 05:12 [place] # (Auto) 0.7 x10^3/uL (0.3-0.8) 04/27/21 05:12 Eos # (Auto) 0.2 x10^3/uL (0.0-0.2) 04/27/21 05:12 Baso # (Auto) 0.1 X10^3/uL (0.0-0.1) 04/27/21 05:12 Absolute Nucleated RBC 0.0 /100WBC 04/27/21 05:12 Sodium 138 mmol/L (136-145) 04/27/21 05:12 Corrected Sodium TNP 04/27/21 05:12 Potassium 4.8 mmol/L (3.5-5.1) 04/27/21 05:12 Chloride 109 mmol/L (98-107) H 04/27/21 05:12 Carbon Dioxide 21.2 mmol/L (21-32) 04/27/21 05:12 BUN 18 mg/dL (7-18) 04/27/21 05:12 Creatinine 1.29 mg/dL (0.55-1.02) H 04/27/21 05:12 Est GFR (MDRD) Af Amer 52 (>60) L 04/27/21 05:12 Est GFR (MDRD) Non-Af 43 (>60) L 04/27/21 05:12 Glucose 76 mg/dL (65-99) 04/27/21 05:12 Calcium 8.2 mg/dL (8.5-10.1) L 04/27/21 05:12 Corrected Calcium 9.1 mg/dL (8.5-10.1) 04/27/21 05:12 Magnesium 2.5 mg/dL (1.7-2.9) 04/27/21 05:12 Total Bilirubin 0.20 mg/dL (0.2-1.0) 04/27/21 05:12 AST 13 Units/L (15-37) L 04/27/21 05:12 ALT 10 Units/L (12-78) L 04/27/21 05:12 Alkaline Phosphatase 81 Units/L (46-116) 04/27/21 05:12 Total Protein 6.0 g/dL (6.4-8.2) L 04/27/21 05:12 Albumin 2.9 g/dL (3.4-5.0) L 04/27/21 05:12 Globulin 3.1 g/dL (2.5-4.5) 04/27/21 05:12 Albumin/Globulin Ratio 0.9 Ratio (1.1-2.1) L 04/27/21 05:12 SARS CoV-2 RNA Rapid FELIZ Negative (NEGATIVE) 04/25/21 17:05 Tissue Pathology To follow 04/26/21 08:40 Reason For Visit: DEHYDRATION, DYSPHAGIA Discharge Date Discharge Date: 04/27/21 Discharge Diagnosis All Active Problems (Updated 05/02/21 @ 15:59 by Michelle Singh) Esophageal dysmotility (Chronic) Rheumatoid arthritis (Acute) Heart disease (Chronic) HLD (hyperlipidemia) (Chronic) Hypothyroidism (Chronic) High blood pressure (Chronic) Acute dehydration (Acute) Anemia (Chronic) Metabolic acidosis (Acute) Dysphagia (Acute) Generalized weakness (Acute) Iron deficiency anemia (Acute) Dehydration (Acute) Diarrhea (Acute) Arthritis (Chronic) Rheumatoid arthritis (Chronic) HTN (hypertension) (Chronic) CAD (coronary artery disease) (Chronic) Severe anemia (Chronic) Chronic kidney disease (CKD) (Chronic) Microcytic anemia (Chronic) Plan of Treatment: Continue with present treatment and follow up plan. Pt is to keep follow up appointment as instructed and take medications as ordered. Discharge Medications Discharge Medications: Tetanus Vaccines and Toxoid Allergy (Verified 03/31/20 07:36) CONTINUE taking the following medications mirtazapine 7.5 mg PO HS 04/26/21 [History] ondansetron 4 mg PO TID PRN 04/26/21 [History] Follow up and Referral Follow Up: 1 Week (PCP) 2 Weeks (Surgery ) Discharge Disposition Assessment: Stable no acute distress noted at discharge. Discharge Disposition: Home Discharge Condition: Stable Discharge Plan Discharge Plan Hospital Course: Ms Carroll is a 75y/o female with multiple comorbidities presented to the clinic with generalized weakness and poor oral intake. Patient has been feeling this way for a couple weeks. She has not maite able to tolerate oral intake. She states solid foods get stuck while swallowing. She also reports intermittent epigastric pain. She has also been having diarrhea which has slowed down some. Denies blood in stool. She has been taking her medications. She reports severe weakness. Patient had an EGD last year gastritis and esophageal dysmotility disorder. She was admitted for poor oral intake, dehydration, dysphagia. Her labs showed significant elevation of Creatinine. Patient was started on IV fluids, anti-emetics. Dr Emery was consulted and planned to do EGD the next morning. EGD showed gastritis , no ulcers or neoplasm. Patient recurrent dysphagia and Sx due to esophageal dysmotility disorder. Patient was able to tolerate PO intake. Her labs were monitored daily and electrolytes replaced as needed. Patient was feeling a lot better and stable for discharge. She will follow up with PCP and Dr Emery as scheduled. Patient Disposition: 01 HOME, SELF-CARE Condition: Stable Health Concerns: Post Hospitalization: new medications and changes needed to prevent readmission or further decline. Pt educated and given instructions on all concerns. Care Plan Goals: Problem: Fluid Volume Deficit Goal: Maintain/Improved Adequate hydration. Instructions: Follow provided instructions. Follow up with primary physician as directed. Contact primary care physician or report to the closest Emergency Room if condition worsens. Plan of Treatment: Continue with present treatment and follow up plan. Pt is to keep follow up appointment as instructed and take medications as ordered. Assessment: Stable no acute distress noted at discharge. Prescription drug monitoring program results: PDMP reviewed and no concerns identified Prescriptions: Continued aspirin [Aspir-81] 81 mg Tablet,Delayed Release (Dr/Ec) 81 mg PO DAILY RF: 0 levothyroxine 88 mcg tablet 88 mcg PO DAILY RF: 0 hydrocodone-acetaminophen 7.5-325 mg tablet 1 tab PO TID PRNRF: 0 ropinirole 0.5 mg tablet 1 mg PO HS RF: 0 furosemide 20 mg tablet 20 mg PO DAILY RF: 0 metoprolol tartrate 25 mg tablet 25 mg PO BID RF: 0 ferrous sulfate 325 mg (65 mg iron) Tablet 325 mg PO TID RF: 0 pantoprazole [Protonix] 40 mg tablet,delayed release (DR/EC) 40 mg PO BID RF: 0 amlodipine 5 mg Tablet 5 mg PO DAILY Qty: 30 RF: 0 ondansetron 4 mg Tablet,Disintegrating 4 mg PO TID PRNRF: 0 mirtazapine 7.5 mg Tablet 7.5 mg PO HS RF: 0 Orders to Discharge Patient Discharge Orders: Discharge (Routine); Ordered 04/27/21 Ordered By: Michelle Singh Follow ups/Referrals Follow ups/Referrals: ADEEL MAYFIELD [STAFF PHYSICIAN] - 05/23/21 10:30 am Michelle Singh [Primary Care Provider] - 05/20/21 11:00 am Instructions Instructions: Dysphagia, Soft-Food Eating Plan, Aspirin and Your Heart, Acute Kidney Injury, Adult, Weakness, [id number], Upper Endoscopy, Care After, Upper Endoscopy, Dysphagia Eating Plan, Bite Size Food, Managing Your Hypertension, Rehydration, Elderly, Dehydration, Elderly, [id number] Activity Restrictions/Additional Instructions: Resume taking lisinopril on 04/29/21 Resume taking lasix on 05/01/21 Drink lots of water to stay hydrated Diet instructions: continue soft foods, eat small more frequent meals, chew food properly Stand Alone Forms: Precautions for [facility], Patient Portal, Social Distancing
[2021-04-27] MEDS: LOPRESSOR TAB 25 MG PO SCH (09:57)
[2021-04-27] MEDS: PROTONIX INJ 40 MG VIAL IVP SCH (09:58)
== END 2021-04-27 11:20 | disposition home or self-care (01) ==
LOC: MED/SURG
PROVIDERS: ADMIT Internal Medicine; ATTEND Internal Medicine
DX: E86.0 Dehydration; N18.9 Chronic kidney disease, unspecified; R19.7 Diarrhea, unspecified; R53.1 Weakness; R13.12 Dysphagia, oropharyngeal phase; D64.89 Other specified anemias; Z20.822 Contact with and (suspected) exposure to COVID-19; N17.8 Other acute kidney failure; E03.8 Other specified hypothyroidism; D50.8 Other iron deficiency anemias; M06.9 Rheumatoid arthritis, unspecified; K22.4 Dyskinesia of esophagus

== ENCOUNTER 2025-01-23 10:55 | Observation (INO) ==
[2025-01-23 11:08] VITALS: BMI 19.8
[2025-01-23 12:35] LABS: BLOOD/HEMOGLOBIN,URINE 3+ (NEGATIVE); LEUKOCYTE ESTERASE ,URINE 3+ (NEGATIVE); NITRITES,URINE NEGATIVE (NEGATIVE)
[2025-01-23 12:39] LABS: APPEARANCE,URINE SLIGHTLY HAZY (CLEAR)
[2025-01-23 12:42] LABS: SQUAMOUS EPITHELIAL CELL,UR RARE /HPF (NEGATIVE)
[2025-01-23 13:01] LABS: MEAN PLATELET VOLUME 7.8 fL (7.4-11.0); RED CELL DISTRIBUTION WIDTH 13.0 % (11.6-16.5)
[2025-01-23 13:03] LABS: CREATININE 1.52 mg/dL (0.55-1.02); eGFR NON BLACK RACES 35 (>60)
--- NOTE | 2025-01-23 14:08 | ED.ABDFE ---
HPI Time Seen Time Seen by Provider: 01/23/25 12:25 PCP Primary Care Physician: Samantha ADLER Comment HPI Comment: Patient is a 79-year-old female with history of RA, HTN, HLD, CKD, CAD and GERD who presents to clinic with complaint of epigastric pain for 3 days. Patient states that she ran out of her Protonix on and has been having a burning sensation in her abdomen since. Patient states the pain is constant currently a 2/10 but earlier this week it was a 12/10. Last meal was yesterday and was a handful of grits. She admits to an acid tasting in her mouth. In 2 bouts of diarrhea yesterday. Denies any fevers, chills, vomiting, melena, hematochezia, dysuria, hematuria, chest pain, shortness of breath Complaint Chief Complaint:: diarrhea started off and on thru Saturday. Saturday she began having burning feeling in her stomach and acid reflux. Today her reflux has eased off; and took her Protonix and thyroid medication this morning; She states she held everything else due to having burning in stomach that rises up her throat when she bends over. Her diaarhea has eased off at this time, but some nausea has presented and feels like she has no energy. Self Treatment fo Chief Complaint: Protonix COVID-19 Coronavirus risk:travel/contact w/high risk person: No Has patient experienced Coronavirus symptoms: No Source History Provided: Patient Mode of arrival Mode of Arrival: Ambulatory Timing Onset of Chief Complaint: 01/21/25 PMH PMH Past Medical History: Yes Past Medical History: Anemia, Angina, Arthritis, Cirrhosis, Coronary Artery Disease, Dyslipidemia, GERD, Hypertension, [place] and Sleep Apnea Past Surgical History: Yes Surgical History: Cholecystectomy Family History History of Family Medical Conditions: Yes Family Medical History: Diabetes Mellitus, Cancer, NE, Heart Failure and Hypertension Social History Does patient currently use any type of tobacco product: No Have you used tobacco products in the last 12 months: No Type of Tobacco Use: None How many years tobacco product used: 20 Does any household member use tobacco: No Alcohol Use: None Do you use any recreational Drugs:: No Lives With: Alone Lives Where: Home Travel Risk Coronavirus risk:travel/contact w/high risk person: No Has patient experienced Coronavirus symptoms: No Infectious screening In the last 2 months have you had wt loss of >10#?: NO Have you had fever, night sweats or hemotysis?: No Have you traveled outside the country in the last 6 months?: No Isolation: Standard ROS Review of Systems Constitutional: See HPI PE Vital Signs Vitals: Vital Signs Temperature 97.6 F Pulse Rate 64 Respiratory Rate 20 Blood Pressure 140/95 O2 Sat by Pulse Oximetry 100 General Limitations: No Limitations and Language Barrier General Appearance: Alert and In No Apparent Distress Respiratory Respiratory Exam: Normal Lung Sounds Bilat Cardiovascular Cardiovascular Exam: Regular Rate and Normal Rhythm Abdominal Exam Abdominal Exam: Tenderness (Epigastric) and Hyperactive Bowel Sounds; negative Distention or Rebound Extremeties Extremities Exam: Normal Capillary Refill; negative Edema Neurologic Neurological Exam: Alert and Oriented X3 Psychiatric Psychiatric Exam: Normal Affect and Normal Mood Skin Skin Exam: Warm, Dry and Intact COURSE Treatment Treatment: Ordered CBC, CMP, lipase, amylase, CT abdomen/pelvis, IVF of NS 500 mL, Rocephin started in ED Reevaluation 1st: Improved (Patient's abdominal pain improved. CBC revealed elevated white count. Bump in creatinine, lipase and amylase were elevated. UA revealed markers for UTI. CT was ordered) 2nd: Unchanged (No cysts or stranding appreciated in the epigastric region. Due to patient's continuation of pain and her elevated lipase and ambulates will admit for observation.) ROR Labs Reviewed Laboratory Results Reviewed?: Yes 01/23/25 12:43 01/23/25 12:43 Laboratory: WBC 13.0 X10^3/uL (3.6-10.0) H 01/23/25 12:43 RBC 3.84 X10^6/uL (3.5-5.4) 01/23/25 12:43 Hgb 12.6 g/dL (12.0-16.0) 01/23/25 12:43 Hct 37.8 % (36.0-47.0) 01/23/25 12:43 MCV 98.3 fL (80.0-100.0) 01/23/25 12:43 MCH 32.7 pg (27.0-34.0) 01/23/25 12:43 MCHC 33.3 g/dL (33.0-35.0) 01/23/25 12:43 RDW 13.0 % (11.6-16.5) 01/23/25 12:43 Plt Count 267 X10^3/uL (150.0-450.0) 01/23/25 12:43 MPV 7.8 fL (7.4-11.0) 01/23/25 12:43 Neut % (Auto) 85.7 % (42.0-75.0) H 01/23/25 12:43 Lymph % (Auto) 6.6 % (21.0-51.0) L 01/23/25 12:43 [place] % (Auto) 7.2 % (0.0-13.0) 01/23/25 12:43 Eos % (Auto) 0.3 % (0.9-2.9) L 01/23/25 12:43 Baso % (Auto) 0.2 % (0.2-1.0) 01/23/25 12:43 Neut # (Auto) 11.1 x10^3/uL (2.2-4.8) H 01/23/25 12:43 Lymph # (Auto) 0.9 X10^3/uL (1.3-2.9) L 01/23/25 12:43 [place] # (Auto) 0.9 x10^3/uL (0.3-0.8) H 01/23/25 12:43 Eos # (Auto) 0.0 x10^3/uL (0.0-0.2) 01/23/25 12:43 Baso # (Auto) 0.0 X10^3/uL (0.0-0.1) 01/23/25 12:43 Absolute Nucleated RBC 0.0 /100WBC 01/23/25 12:43 Sodium 136 mmol/L (136-145) 01/23/25 12:43 Corrected Sodium TNP 01/23/25 12:43 Potassium 4.7 mmol/L (3.5-5.1) 01/23/25 12:43 Chloride 103 mmol/L (98-107) 01/23/25 12:43 Carbon Dioxide 22.0 mmol/L (21-32) 01/23/25 12:43 BUN 23 mg/dL (7-18) H 01/23/25 12:43 Creatinine 1.52 mg/dL (0.55-1.02) H 01/23/25 12:43 Est GFR (MDRD) Af Amer 42 (>60) L 01/23/25 12:43 Est GFR (MDRD) Non-Af 35 (>60) L 01/23/25 12:43 Glucose 102 mg/dL (65-99) H 01/23/25 12:43 Calcium 9.6 mg/dL (8.5-10.1) 01/23/25 12:43 Corrected Calcium TNP 01/23/25 12:43 Magnesium 1.3 mg/dL (2.0-2.9) L 01/23/25 12:43 Total Bilirubin 0.60 mg/dL (0.2-1.0) 01/23/25 12:43 AST 26 Units/L (15-37) 01/23/25 12:43 ALT 25 Units/L (12-78) 01/23/25 12:43 Alkaline Phosphatase 79 Units/L (46-116) 01/23/25 12:43 Total Protein 8.2 g/dL (6.4-8.2) 01/23/25 12:43 Albumin 5.0 g/dL (3.4-5.0) 01/23/25 12:43 Globulin 3.2 g/dL (2.5-4.5) 01/23/25 12:43 Albumin/Globulin Ratio 1.6 Ratio (1.1-2.1) 01/23/25 12:43 Amylase 103 Units/L (25-115) 01/23/25 12:43 Lipase 146 Units/L (16-77) H 01/23/25 12:43 Specimen Type Clean catch urine 01/23/25 12:03 Urine Color Pale yellow (YELLOW) 01/23/25 12:03 Urine Appearance Slightly hazy (CLEAR) 01/23/25 12:03 Urine pH 6.0 (5.0 - 8.0) 01/23/25 12:03 Ur Specific [place] 1.015 (1.000-1.030) 01/23/25 12:03 Urine Protein 1+ (NEGATIVE) 01/23/25 12:03 Urine Glucose (UA) Negative (NEGATIVE) 01/23/25 12:03 Urine Ketones Negative (NEGATIVE) 01/23/25 12:03 Urine Blood 3+ (NEGATIVE) 01/23/25 12:03 Urine Nitrite Negative (NEGATIVE) 01/23/25 12:03 Urine Bilirubin Negative (NEGATIVE) 01/23/25 12:03 Urine Urobilinogen Normal (NORMAL) 01/23/25 12:03 Ur Leukocyte Esterase 3+ (NEGATIVE) 01/23/25 12:03 Urine RBC 0-2 /HPF (0-3) 01/23/25 12:03 Urine WBC Tntc /HPF (0-5) A 01/23/25 12:03 Ur Squamous Epith Cells Rare /HPF (NEGATIVE) 01/23/25 12:03 Urine Bacteria 1+ /HPF (NEGATIVE) 01/23/25 12:03 Ur Culture Indicated? Yes/culture set up 01/23/25 12:03 Other Results Comments: Name: CLEMENTINE HAYNES : 1945 Sex: F Location: ER Order Number(s): [id number] Procedure(s):CT ABDOMEN/PELVIS W/O CON Ordering Physician: David Kaye Primary Care: Michelle Singh MD Service Date: 01/23/25 Service Time: 1311 EXAM: ABDOMEN/PELVIS W/O CON HISTORY: abdominal pain, diarrhea; acid reflux, diarrhea, abdominal pain COMPARISON: CT 11/17/2020. TECHNIQUE: Axial CT images were obtained through the abdomen and pelvis withoutcontrast. Coronal reformatted images were included. All CT scans at this facility use dose modulation, iterative reconstruction, and/or weight based dosing when appropriate to reduce radiation dose to as low as reasonably achievable. FINDINGS: Absence of intravenous contrast limits evaluation. LOWER THORAX: Mild emphysematous changes in the lung bases. Coronary artery calcifications. LIVER: No significant abnormality. GALLBLADDER/BILIARY TRACT: Cholecystectomy. No biliary dilatation. PANCREAS: No significant abnormality. SPLEEN: No significant abnormality. ADRENAL GLANDS: No significant abnormality. KIDNEYS/URETERS: Simple right renal cyst measuring 4.2 cm. No suspicious focal lesions within the significant limitations of unenhanced imaging. Mild left renal atrophy. No nephrolithiasis or hydronephrosis. Normal-appearing ureters. BLADDER: No significant abnormality. REPRODUCTIVE SYSTEM: Suboptimally evaluated by CT technique. Simple fluid attenuation mass in the lower uterine segment/cervix measures 5.4 x 4.9 cm. GI TRACT/MESENTERY: No bowel obstruction. Colonic diverticulosis without evidence of acute diverticulitis. No evidence of acute bowel inflammation. The appendix is not discretely visualized but no secondary signs of acute appendicitis. LYMPH NODES: No significant abnormality. VESSELS: Severe atherosclerotic calcifications. Normal caliber abdominal aorta. Bilateral common and external iliac artery stents. Bifemoral bypass graft. BONES/SOFT TISSUES: Vertebroplasty changes in the L1 vertebral body. Degenerative changes of the spine and pubic symphysis. Synovial herniation pit in the right femoral head-neck junction. No suspicious osseous lesions. ADDITIONAL FINDINGS: No significant abnormality. IMPRESSION: 1. New simple fluid attenuation mass in the lower uterine segment/cervix measuring up to 5.4 cm. Recommend pelvic ultrasound for further evaluation. Gynecology consultation may be beneficial. 2. No other acute findings. 3. Multiple other findings as described. To comply with quality reporting purpose, any potentially described: 1. Renal cysts referred to as simple cysts are statistically benign and require no further imaging workup. 2. Adrenal nodules measuring less than 1 cm are statistically benign and require no further imaging workup. 3. Adrenal nodules measuring greater than 1 cm but less than 4 cm and meeting density criteria for an adrenal adenoma are statistically benign and require no further imaging workup. THIS IS AN ELECTRONICALLY VERIFIED FINAL REPORT 01/23/2025 2:25 PM - Electronically signed by Dallin Williamson Report Electronically signed: 01/23/25 1429 CC: David Kaye Opioid Opioid Risk Tool Age (Deng box if 16-45): No History of Preadolescent Sexual Abuse: No Total: 0 Total Score Risk Category: Low Risk Copyright: Yonny BOWER predicting aberrant behaviors Discharge Plan Diagnosis Discharge Problem: Pancreatitis, Acute UTI, Acute dehydration Discharge Plan Patient Disposition: 09 ADMITTED INPATIENT Condition: Stable Prescriptions: No Action ferrous sulfate [FeroSul] 325 mg (65 mg iron) tablet 325 mg PO BID Qty: 180 0RF spironolactone 50 mg tablet 50 mg PO QAM 90 Days Qty: 90 1RF pantoprazole 40 mg tablet,delayed release (DR/EC) 40 mg PO QDAY Qty: 90 0RF levothyroxine 50 mcg tablet 50 mcg PO QAM 90 Days Qty: 90 0RF lisinopril 40 mg tablet 40 mg PO BID 30 Days Qty: 60 0RF hydrocodone-acetaminophen 7.5-325 mg tablet 1 tab PO TID MDD 3 PRN (Reason: Pain) 30 Days Qty: 90 0RF atorvastatin [Lipitor] 20 mg tablet 20 mg PO QDAY clopidogrel 75 mg tablet 75 mg PO QDAY amlodipine 5 mg tablet 5 mg PO BID ropinirole 0.5 mg tablet 0.5 mg PO QDAY aspirin 81 mg tablet 81 mg PO QDAY cholecalciferol (vitamin D3) 25 mcg (1,000 unit) capsule 25 mcg PO BID metoprolol tartrate 25 mg tablet 25 mg PO BID bimatoprost 0.03 % drops with applicator 1 drp topical QHS upadacitinib 15 mg tablet extended release 24 hr 15 mg PO QDAY sucralfate [Carafate] 100 mg/mL suspension 10 ml PO QACHS Qty: 420 0RF ondansetron 4 mg tablet,disintegrating 4 mg PO TID PRN Health Concerns: Post Hospitalization: new medications and changes needed to prevent readmission or further decline. Pt educated and given instructions on all concerns. Plan of Treatment: Continue with present treatment and follow up plan. Pt is to keep follow up appointment as instructed and take medications as ordered. Orders to Discharge Patient Discharge Orders: Transfer (Routine); Ordered 01/23/25 Ordered By: David Kaye Follow ups/Referrals Follow ups/Referrals: Michelle Singh MD [Primary Care Provider, Unknown] - 3 days Instructions Stand Alone Forms: Find Help Web Site, Post Hospital Follow Up Care Print Language: UKRAINIAN
--- NOTE | 2025-01-23 14:28 | CT ---
EXAM: ABDOMEN/PELVIS W/O CON HISTORY: abdominal pain, diarrhea; acid reflux, diarrhea, abdominal pain COMPARISON: CT 11/17/2020. TECHNIQUE: Axial CT images were obtained through the abdomen and pelvis withoutcontrast. Coronal reformatted images were included. All CT scans at this facility use dose modulation, iterative reconstruction, and/or weight based dosing when appropriate to reduce radiation dose to as low as reasonably achievable. FINDINGS: Absence of intravenous contrast limits evaluation. LOWER THORAX: Mild emphysematous changes in the lung bases. Coronary artery calcifications. LIVER: No significant abnormality. GALLBLADDER/BILIARY TRACT: Cholecystectomy. No biliary dilatation. PANCREAS: No significant abnormality. SPLEEN: No significant abnormality. ADRENAL GLANDS: No significant abnormality. KIDNEYS/URETERS: Simple right renal cyst measuring 4.2 cm. No suspicious focal lesions within the significant limitations of unenhanced imaging. Mild left renal atrophy. No nephrolithiasis or hydronephrosis. Normal-appearing ureters. BLADDER: No significant abnormality. REPRODUCTIVE SYSTEM: Suboptimally evaluated by CT technique. Simple fluid attenuation mass in the lower uterine segment/cervix measures 5.4 x 4.9 cm. GI TRACT/MESENTERY: No bowel obstruction. Colonic diverticulosis without evidence of acute diverticulitis. No evidence of acute bowel inflammation. The appendix is not discretely visualized but no secondary signs of acute appendicitis. LYMPH NODES: No significant abnormality. VESSELS: Severe atherosclerotic calcifications. Normal caliber abdominal aorta. Bilateral common and external iliac artery stents. Bifemoral bypass graft. BONES/SOFT TISSUES: Vertebroplasty changes in the L1 vertebral body. Degenerative changes of the spine and pubic symphysis. Synovial herniation pit in the right femoral head-neck junction. No suspicious osseous lesions. ADDITIONAL FINDINGS: No significant abnormality. IMPRESSION: 1. New simple fluid attenuation mass in the lower uterine segment/cervix measuring up to 5.4 cm. Recommend pelvic ultrasound for further evaluation. Gynecology consultation may be beneficial. 2. No other acute findings. 3. Multiple other findings as described. To comply with quality reporting purpose, any potentially described: 1. Renal cysts referred to as simple cysts are statistically benign and require no further imaging workup. 2. Adrenal nodules measuring less than 1 cm are statistically benign and require no further imaging workup. 3. Adrenal nodules measuring greater than 1 cm but less than 4 cm and meeting density criteria for an adrenal adenoma are statistically benign and require no further imaging workup. THIS IS AN ELECTRONICALLY VERIFIED FINAL REPORT 01/23/2025 2:25 PM - Electronically signed by Dallin Williamson
[2025-01-23] MEDS: NS 500 ML IV 500 ML IV ONE (14:59)
[2025-01-23] MEDS: MAGNESIUM SULFATE 1 GRAM/100 mL PREMIX 1 G/100 ML BAG IV ONE (14:59)
[2025-01-23] MEDS: ROCEPHIN VIAL 1 GRAM IV ONE (15:09)
[2025-01-23] MEDS ORDERED: ZOFRAN INJ 4 MG VIAL IVP PRN (15:59)
[2025-01-23] MEDS ORDERED: TYLENOL 325 MG TAB PO PRN (15:59)
[2025-01-23] MEDS ORDERED: CONSULT PHARMACY - POTASSIUM & MAGNESIUM XX SCH (16:00)
[2025-01-23] MEDS: NORCO 5/325 MG TAB PO PRN (16:32)
[2025-01-23] MEDS: MAGNESIUM SULFATE 1 GRAM/100 mL PREMIX 1 G/100 ML BAG IV SCH (16:33)
[2025-01-23] MEDS: ROCEPHIN VIAL 1 GRAM ONE (17:20)
[2025-01-23] MEDS: NS 1,000 ML IV 1,000 ML IV SCH (17:33)
[2025-01-23] MEDS: PROTONIX INJ 40 MG VIAL IVP SCH (20:18)
[2025-01-23] MEDS: REQUIP PO SCH (23:30)
[2025-01-24 06:23] LABS: MEAN PLATELET VOLUME 7.8 fL (7.4-11.0); RED CELL DISTRIBUTION WIDTH 13.3 % (11.6-16.5)
[2025-01-24 06:26] LABS: CREATININE 1.29 mg/dL (0.55-1.02); eGFR NON BLACK RACES 42 (>60)
--- NOTE | 2025-01-24 11:39 | DR.H&P ---
H&P History & Physical for Day of: H&P Date: 01/23/25 Chief Complaint Chief Complaint: nvd, epigastric pain, dehydration History of Present Illness History of Present Illness: PT IS 79 WF, ER ADMISSION WITH CO SUDDEN ONSET OF SEVERE DIARRHEA FOR SEVERAL DAYS THEN UPPER ABDOMINAL PAIN, "BURNING" WITH NAUSEA. PT CO POOR INTAKE AND DEHYDRATION WITH DIFFUSE WEAKNESS. NO FEVER OR RESP COMPLAINTS. PT HAS PMH OF RA, GERD, OA, HTN AND HYPERLIPIDEMIA. PT DENIES ANY DYSURIA. PT ADMITTED FOR TREATMENT AND EVALUATION OF ACUTE ILLNESS. Past Medical History Past Medical History: Anemia, Angina, Arthritis, Cirrhosis, Coronary Artery Disease, Dyslipidemia, GERD, Hypertension, [place] and Sleep Apnea Past Surgical History Surgical History: Cholecystectomy and Hysterectomy Family History Family Medical History: Diabetes Mellitus, Cancer, [place], Heart Failure and Hypertension Social History Does patient currently use any type of tobacco product: No Have you used tobacco products in the last 12 months: No Type of Tobacco Use: None How many years tobacco product used: 20 Does any household member use tobacco: No Alcohol Use: None Drug Use: None Medications Home Medications: Home Medications Medication Instructions Recorded Confirmed Type ondansetron 4 mg disintegrating 4 mg PO TID PRN 01/23/25 History tablet amlodipine 5 mg tablet 5 mg PO BID 12/02/24 5 History aspirin 81 mg tablet 81 mg PO QDAY 12/02/2401/23 History atorvastatin 20 mg tablet (Lipitor) 20 mg PO QDAY 11/0901/23/25 History bimatoprost 0.03 % drops with 1 drp topical QHS 01/23/25 History applicator, eyelash base cholecalciferol (vitamin D3) 25 25 mcg PO BID 12/02/24 01/23/25 History mcg (1,000 unit) capsule clopidogrel 75 mg tablet 75 mg PO QDAY 12/02/2401/23 History metoprolol tartrate 25 mg tablet 25 mg PO BID 12/02/24 01/23/25 History ropinirole 0.5 mg tablet 0.5 mg PO QDAY 12/02/2401/08 History upadacitinib 15 mg tablet,extended 15 mg PO QDAY 12/0201/23/25 History release 24 hr Allergies Allergies Allergy/AdvReac Type Severity Reaction Status Date / Time tetanus and diphtheria Allergy Unknown Verified 01/23/25 11:39 toxoids Tetanus Vaccines and Toxoid Allergy Unknown Verified 01/23/25 11:39 Labs 01/24/25 05:25 01/24/25 05:25 Labs: 01/23/25 12:03 Urine,Clean Catch Urine Culture - Preliminary Laboratory WBC 9.3 X10^3/uL (3.6-10.0) 01/24/25 05:25 RBC 3.38 X10^6/uL (3.5-5.4) L 01/24/25 05:25 Hgb 11.4 g/dL (12.0-16.0) L 01/24/25 05:25 Hct 33.5 % (36.0-47.0) L 01/24/25 05:25 MCV 98.9 fL (80.0-100.0) 01/24/25 05:25 MCH 33.8 pg (27.0-34.0) 01/24/25 05:25 MCHC 34.1 g/dL (33.0-35.0) 01/24/25 05:25 RDW 13.3 % (11.6-16.5) 01/24/25 05:25 Plt Count 210 X10^3/uL (150.0-450.0) 01/24/25 05:25 MPV 7.8 fL (7.4-11.0) 01/24/25 05:25 Neut % (Auto) 84.4 % (42.0-75.0) H 01/24/25 05:25 Lymph % (Auto) 6.3 % (21.0-51.0) L 01/24/25 05:25 [place] % (Auto) 8.1 % (0.0-13.0) 01/24/25 05:25 Eos % (Auto) 0.9 % (0.9-2.9) 01/24/25 05:25 Baso % (Auto) 0.3 % (0.2-1.0) 01/24/25 05:25 Neut # (Auto) 7.9 x10^3/uL (2.2-4.8) H 01/24/25 05:25 Lymph # (Auto) 0.6 X10^3/uL (1.3-2.9) L 01/24/25 05:25 [place] # (Auto) 0.8 x10^3/uL (0.3-0.8) 01/24/25 05:25 Eos # (Auto) 0.1 x10^3/uL (0.0-0.2) 01/24/25 05:25 Baso # (Auto) 0.0 X10^3/uL (0.0-0.1) 01/24/25 05:25 Absolute Nucleated RBC 0.0 /100WBC 01/24/25 05:25 Sodium 139 mmol/L (136-145) 01/24/25 05:25 Corrected Sodium TNP 01/24/25 05:25 Potassium 4.1 mmol/L (3.5-5.1) 01/24/25 05:25 Chloride 108 mmol/L (98-107) H 01/24/25 05:25 Carbon Dioxide 21.4 mmol/L (21-32) 01/24/25 05:25 BUN 17 mg/dL (7-18) 01/24/25 05:25 Creatinine 1.29 mg/dL (0.55-1.02) H 01/24/25 05:25 Est GFR (MDRD) Af Amer 51 (>60) L 01/24/25 05:25 Est GFR (MDRD) Non-Af 42 (>60) L 01/24/25 05:25 Glucose 78 mg/dL (65-99) 01/24/25 05:25 Calcium 9.3 mg/dL (8.5-10.1) 01/24/25 05:25 Corrected Calcium TNP 01/24/25 05:25 Magnesium 2.4 mg/dL (2.0-2.9) 01/24/25 05:25 Total Bilirubin 0.40 mg/dL (0.2-1.0) 01/24/25 05:25 AST 18 Units/L (15-37) 01/24/25 05:25 ALT 20 Units/L (12-78) 01/24/25 05:25 Alkaline Phosphatase 67 Units/L (46-116) 01/24/25 05:25 Total Protein 7.1 g/dL (6.4-8.2) 01/24/25 05:25 Albumin 4.2 g/dL (3.4-5.0) 01/24/25 05:25 Globulin 2.9 g/dL (2.5-4.5) 01/24/25 05:25 Albumin/Globulin Ratio 1.4 Ratio (1.1-2.1) 01/24/25 05:25 Amylase 103 Units/L (25-115) 01/23/25 12:43 Lipase 146 Units/L (16-77) H 01/23/25 12:43 Specimen Type Clean catch urine 01/23/25 12:03 Urine Color Pale yellow (YELLOW) 01/23/25 12:03 Urine Appearance Slightly hazy (CLEAR) 01/23/25 12:03 Urine pH 6.0 (5.0 - 8.0) 01/23/25 12:03 Ur Specific [place] 1.015 (1.000-1.030) 01/23/25 12:03 Urine Protein 1+ (NEGATIVE) 01/23/25 12:03 Urine Glucose (UA) Negative (NEGATIVE) 01/23/25 12:03 Urine Ketones Negative (NEGATIVE) 01/23/25 12:03 Urine Blood 3+ (NEGATIVE) 01/23/25 12:03 Urine Nitrite Negative (NEGATIVE) 01/23/25 12:03 Urine Bilirubin Negative (NEGATIVE) 01/23/25 12:03 Urine Urobilinogen Normal (NORMAL) 01/23/25 12:03 Ur Leukocyte Esterase 3+ (NEGATIVE) 01/23/25 12:03 Urine RBC 0-2 /HPF (0-3) 01/23/25 12:03 Urine WBC Tntc /HPF (0-5) A 01/23/25 12:03 Ur Squamous Epith Cells Rare /HPF (NEGATIVE) 01/23/25 12:03 Urine Bacteria 1+ /HPF (NEGATIVE) 01/23/25 12:03 Ur Culture Indicated? Yes/culture set up 01/23/25 12:03 Review of Systems Constitutional: Weakness Eyes: No Symptoms Reported ENT: No Symptoms Reported Respiratory: denies Cough or Shortness of Breath Cardiovascular: No Symptoms Reported Gastrointestinal: Nausea, Vomiting, Abdominal Pain and Diarrhea Genitourinary: Other (OCCASSIONAL BLADDER LEAK, HX OF BLADDER LIFT); denies Dysuria or Hematuria Musculoskeletal: Other (CHRONIC MULTIPLE JOINT PAIN) Skin: No Symptoms Reported Neurological: Weakness Physical Exam Vital Signs: Vital Signs Temperature 97.6 F Temperature 97.8 F Pulse Rate [Right Brachial] 61 Pulse Rate [Right Brachial] 62 Respiratory Rate 17 Respiratory Rate 18 Blood Pressure [Right Arm] 153/67 Blood Pressure [Right Arm] 128/62 O2 Sat by Pulse Oximetry 98 O2 Sat by Pulse Oximetry 98 Oriented: Normal Eyes: Normal Ear: Normal Nose: Normal Throat: Normal Respiratory: LLL Diminished Cardiovascular: Normal : Normal Auscultation: Bowel Sounds: Normal Palpation: Normal Tenderness: Epigastric and Mild Skin: Decreased [place] Musculoskeletal: Deformity and Motor Deficit Psychiatric: Normal Mood Description: Calm Affect: Normal Speech Pattern: Clear and Appropriate Assessment/Plan (1) Pancreatitis: Status: Acute Plan: ADMIT, NPO IV HYDRATION PAIN CONTROL, IV ATBX VERIFY HOME MEDICATIONS CT SCAN OBTAINED IN ER, REPEAT AM LABS UC ON ADMISSION (2) Acute UTI: Status: Acute (3) Chest pain due to GERD: Status: Acute (4) Hypertension: Status: Acute (5) Rheumatoid arthritis: Qualifiers: Rheumatoid arthritis location: multiple sites Rheumatoid factor presence: unspecified presence Qualified Code(s): M06.9 - Rheumatoid arthritis, unspecified Status: Acute (6) Hypothyroidism: Qualifiers: Hypothyroidism type: unspecified Qualified Code(s): E03.9 - Hypothyroidism, unspecified Status: Chronic (7) Uterine mass: Status: Acute Plan: PT REFUSES PELVIC UC AT [facility], REQUESTED TO FU WITH HER [facility] FITTER, DR GALVEZ IN [place]
[2025-01-24] MEDS: NORVASC TAB 5 MG PO SCH (20:33)
[2025-01-24] MEDS: ROCEPHIN VIAL 1 GRAM 1 G in NS 100 ML IV 100 ML IV SCH (20:33)
[2025-01-24] MEDS: LOPRESSOR TAB 25 MG PO SCH (20:33)
[2025-01-25 06:12] LABS: MEAN PLATELET VOLUME 7.9 fL (7.4-11.0); RED CELL DISTRIBUTION WIDTH 13.1 % (11.6-16.5)
[2025-01-25 06:26] LABS: CREATININE 0.84 mg/dL (0.55-1.02); eGFR NON BLACK RACES > 60 (>60)
[2025-01-25] MEDS ORDERED: PHARMACY CONSULT XX SCH (09:00)
[2025-01-25] MEDS: LIPITOR TAB 20 MG PO SCH (09:12)
[2025-01-25] MEDS: PLAVIX PO SCH (09:12)
--- NOTE | 2025-01-25 11:05 | PCM.PROG ---
Progress Note Progress Note for Day of Date of Exam: 01/25/25 Subjective Subjective: Patient seen at bedside, no acute events overnight. She is currently admitted for dehydration, UTI and pancreatitis. She is feeling better today. Denies any nausea or vomiting. Her abdominal pain has improved. She was started on clear liquids this morning as she did have some hypoglycemia. She remains on IV antibiotics. CTAP done on admission showed fluid/mass in the lower uterine segment, pelvic ultrasound was recommended. Patient does follow- up with [facility] outpatient. Labs/imaging reviewed: - WBC 7.9 hemoglobin 10.5 potassium 3.9 creatinine 0.84 magnesium 2.4 - CTAP reviewed - Urine culture gram-negative rods Plan: Continue IV Rocephin, follow final cultures. Continue hydration. Physical therapy consult. Continue clear liquids. Advance diet as tolerated. Order pelvic ultrasound to assess further. Replace electrolytes as per protocol. Continue home medications. Monitor a.m. labs and imaging. Past Medical Family Social History Allergies: Allergies tetanus and diphtheria toxoids Allergy (Unknown, Verified 01/23/25 11:39) Tetanus Vaccines and Toxoid Allergy (Unknown, Verified 01/23/25 11:39) Vital Signs and I&O's Vital Signs: Vital Signs Temperature 97.8 F Pulse Rate [Right Brachial] 62 Respiratory Rate 18 Blood Pressure [Right Arm] 147/66 O2 Sat by Pulse Oximetry 98 Intake and Output: Intake & Output 01/22/25 01/23/25 01/24/25 01/25/25 23:59 23:59 23:59 23:59 Intake Total 964 / 964 1937 588 / 588 Balance 964 / 964 1937 588 / 588 Physical Exam Oriented: Normal Eyes: Normal Ear: Normal Nose: Normal Throat: Normal Cardiovascular: Normal Auscultation: Bowel Sounds: Normal Tenderness: Epigastric and Mild Skin: Decreased Turgur Musculoskeletal: Deformity and Motor Deficit Psychiatric: Normal Mood Description: Calm Affect: Normal Speech Pattern: Clear and Appropriate Laboratory and Diagnostics 01/25/25 05:09 01/25/25 05:09 Labs: 01/23/25 12:03 Urine,Clean Catch Urine Culture - Preliminary Laboratory WBC 7.9 X10^3/uL (3.6-10.0) 01/25/25 05:09 RBC 3.13 X10^6/uL (3.5-5.4) L 01/25/25 05:09 Hgb 10.5 g/dL (12.0-16.0) L 01/25/25 05:09 Hct 30.7 % (36.0-47.0) L 01/25/25 05:09 MCV 98.1 fL (80.0-100.0) 01/25/25 05:09 MCH 33.7 pg (27.0-34.0) 01/25/25 05:09 MCHC 34.3 g/dL (33.0-35.0) 01/25/25 05:09 RDW 13.1 % (11.6-16.5) 01/25/25 05:09 Plt Count 186 X10^3/uL (150.0-450.0) 01/25/25 05:09 MPV 7.9 fL (7.4-11.0) 01/25/25 05:09 Neut % (Auto) 85.7 % (42.0-75.0) H 01/25/25 05:09 Lymph % (Auto) 5.7 % (21.0-51.0) L 01/25/25 05:09 [place] % (Auto) 7.0 % (0.0-13.0) 01/25/25 05:09 Eos % (Auto) 1.2 % (0.9-2.9) 01/25/25 05:09 Baso % (Auto) 0.4 % (0.2-1.0) 01/25/25 05:09 Neut # (Auto) 6.8 x10^3/uL (2.2-4.8) H 01/25/25 05:09 Lymph # (Auto) 0.4 X10^3/uL (1.3-2.9) L 01/25/25 05:09 [place] # (Auto) 0.6 x10^3/uL (0.3-0.8) 01/25/25 05:09 Eos # (Auto) 0.1 x10^3/uL (0.0-0.2) 01/25/25 05:09 Baso # (Auto) 0.0 X10^3/uL (0.0-0.1) 01/25/25 05:09 Absolute Nucleated RBC 0.0 /100WBC 01/25/25 05:09 Sodium 140 mmol/L (136-145) 01/25/25 05:09 Corrected Sodium TNP 01/25/25 05:09 Potassium 3.9 mmol/L (3.5-5.1) 01/25/25 05:09 Chloride 110 mmol/L (98-107) H 01/25/25 05:09 Carbon Dioxide 18.3 mmol/L (21-32) L 01/25/25 05:09 BUN 14 mg/dL (7-18) 01/25/25 05:09 Creatinine 0.84 mg/dL (0.55-1.02) 01/25/25 05:09 Est GFR (MDRD) Af Amer > 60 (>60) 01/25/25 05:09 Est GFR (MDRD) Non-Af > 60 (>60) 01/25/25 05:09 Glucose 47 mg/dL (65-99) L* 01/25/25 05:09 POC Glucose (mg/dL) 94 mg/dL (65-99) 01/25/25 07:27 Calcium 8.8 mg/dL (8.5-10.1) 01/25/25 05:09 Corrected Calcium TNP 01/25/25 05:09 Magnesium 2.4 mg/dL (2.0-2.9) 01/24/25 05:25 Total Bilirubin 0.40 mg/dL (0.2-1.0) 01/25/25 05:09 AST 20 Units/L (15-37) 01/25/25 05:09 ALT 18 Units/L (12-78) 01/25/25 05:09 Alkaline Phosphatase 66 Units/L (46-116) 01/25/25 05:09 Total Protein 6.6 g/dL (6.4-8.2) 01/25/25 05:09 Albumin 3.8 g/dL (3.4-5.0) 01/25/25 05:09 Globulin 2.8 g/dL (2.5-4.5) 01/25/25 05:09 Albumin/Globulin Ratio 1.4 Ratio (1.1-2.1) 01/25/25 05:09 Amylase 103 Units/L (25-115) 01/23/25 12:43 Lipase 146 Units/L (16-77) H 01/23/25 12:43 Specimen Type Clean catch urine 01/23/25 12:03 Urine Color Pale yellow (YELLOW) 01/23/25 12:03 Urine Appearance Slightly hazy (CLEAR) 01/23/25 12:03 Urine pH 6.0 (5.0 - 8.0) 01/23/25 12:03 Ur Specific [place] 1.015 (1.000-1.030) 01/23/25 12:03 Urine Protein 1+ (NEGATIVE) 01/23/25 12:03 Urine Glucose (UA) Negative (NEGATIVE) 01/23/25 12:03 Urine Ketones Negative (NEGATIVE) 01/23/25 12:03 Urine Blood 3+ (NEGATIVE) 01/23/25 12:03 Urine Nitrite Negative (NEGATIVE) 01/23/25 12:03 Urine Bilirubin Negative (NEGATIVE) 01/23/25 12:03 Urine Urobilinogen Normal (NORMAL) 01/23/25 12:03 Ur Leukocyte Esterase 3+ (NEGATIVE) 01/23/25 12:03 Urine RBC 0-2 /HPF (0-3) 01/23/25 12:03 Urine WBC Tntc /HPF (0-5) A 01/23/25 12:03 Ur Squamous Epith Cells Rare /HPF (NEGATIVE) 01/23/25 12:03 Urine Bacteria 1+ /HPF (NEGATIVE) 01/23/25 12:03 Ur Culture Indicated? Yes/culture set up 01/23/25 12:03 Plan (1) Pancreatitis: Status: Acute Qualifiers: Chronicity: acute Pancreatitis type: other Acute pancreatitis complication: unspecified Qualified Code(s): K85.80 - Other acute pancreatitis without necrosis or infection (2) Acute UTI: Status: Acute (3) Hypertension: Status: Chronic Qualifiers: Hypertension type: primary hypertension Qualified Code(s): I10 - Essential (primary) hypertension (4) Rheumatoid arthritis: Status: Chronic Qualifiers: Rheumatoid arthritis location: multiple sites Rheumatoid factor presence: unspecified presence Qualified Code(s): M06.9 - Rheumatoid arthritis, unspecified (5) Hypothyroidism: Status: Chronic Qualifiers: Hypothyroidism type: unspecified Qualified Code(s): E03.9 - Hypothyroidism, unspecified (6) Uterine mass: Status: Acute
[2025-01-25] MEDS: LOVENOX INJ 40 MG SYR SC SCH (11:50)
--- NOTE | 2025-01-25 16:38 | US ---
EXAM: PELVIC (NON OB) HISTORY: f/u CTAP lower uterine fluid/mass; ABN CAT SCAN COMPARISON: CT abdomen and pelvis 01/23/2025 TECHNIQUE: 38 images made by the project coach. Sutton scale and color flow images of the pelvis were obtained. FINDINGS: TRANSABDOMINAL The bladder is well distended with a thin wall. This contributes to an optimal acoustic window. A normal uterus is not identified. Most of the volume of the uterus is contained in a cystic mass. It measures 5.2 x 4.7 x 5.2 cm. There is a component of myometrium more superiorly that is probably the fundus and part of the uterine body. So this cystic mass might represent dilatation of the endometrial cavity. As a result this could indicate cervical obstruction or stenosis. But I do not see a solid mass in the lower uterine segment. Right and left ovary have normal volume and echogenicity. Blood flow is demonstrated by color imaging and spectral wave form analysis. We could not identify a normal endometrial lining. No adnexal mass. No free fluid. IMPRESSION: 1. (5.2 cm) cystic mass in the uterus, possibly representing dilated endometrial cavity THIS IS AN ELECTRONICALLY VERIFIED FINAL REPORT 01/25/2025 4:32 PM - Electronically signed by Steve Noland MD
[2025-01-25] MEDS: MORPHINE SULFATE INJ 2 MG INJ IVP PRN (22:59)
[2025-01-26 06:13] LABS: MEAN PLATELET VOLUME 8.3 fL (7.4-11.0); RED CELL DISTRIBUTION WIDTH 13.7 % (11.6-16.5)
[2025-01-26 06:25] LABS: CREATININE 0.77 mg/dL (0.55-1.02); eGFR NON BLACK RACES > 60 (>60)
[2025-01-26 06:32] LABS: PLATELET MORPHOLOGY COMMENT NORMAL (NORMAL)
[2025-01-26] MEDS ORDERED: NS 1,000 ML IV 1,000 ML with MAGNESIUM SULFATE 50% INJ VIAL 1 G IV SCH (08:00)
[2025-01-26] MEDS ORDERED: CONSULT PHARMACY - POTASSIUM & MAGNESIUM XX SCH (08:00)
[2025-01-26] MEDS ORDERED: NS 1,000 ML IV 1,000 ML IV SCH (11:00)
[2025-01-26] MEDS: MAGNESIUM SULFATE 1 GRAM/100 mL PREMIX 1 G/100 ML BAG IV SCH (11:40)
[2025-01-26] MEDS: ULTRAM PO PRN (11:41)
[2025-01-26 13:05] VITALS: BP 140/78; PULSE 76; TEMP 97.3; O2SAT 97
[2025-01-26 13:10] VITALS: RESP 19
[2025-01-26] MEDS: MAG-OX TAB PO NR (13:26)
== END 2025-01-26 14:15 | disposition home or self-care (01) ==
LOC: ER 10:55 → MED/SURG 10:55
PROVIDERS: ADMIT Internal Medicine; ATTEND Internal Medicine
DX: N85.8 Other specified noninflammatory disorders of uterus; R73.09 Other abnormal glucose; R53.1 Weakness; E78.5 Hyperlipidemia, unspecified; I12.9 Hypertensive chronic kidney disease with stage 1 through stage 4 chronic kidney disease, or unspecified chronic kidney disease; M06.9 Rheumatoid arthritis, unspecified; R19.7 Diarrhea, unspecified; N18.9 Chronic kidney disease, unspecified; K21.9 Gastro-esophageal reflux disease without esophagitis; I25.2 Old myocardial infarction; E86.0 Dehydration; R94.4 Abnormal results of kidney function studies; I25.10 Atherosclerotic heart disease of native coronary artery without angina pectoris; Z16.11 Resistance to penicillins; R10.13 Epigastric pain; E83.42 Hypomagnesemia; K85.80 Other acute pancreatitis without necrosis or infection; Z16.19 Resistance to other specified beta lactam antibiotics; E03.8 Other specified hypothyroidism; R10.84 Generalized abdominal pain; B96.29 Other Escherichia coli [E. coli] as the cause of diseases classified elsewhere; N39.0 Urinary tract infection, site not specified